=== PATIENT | female | born 1965 | race Caucasian/White ===

== ENCOUNTER 2020-03-26 17:40 | Emergency (ER) | payer OTHER, SELFPAY ==
[2020-03-26 20:45] VITALS: BP 145/75; PULSE 79; RESP 18; O2SAT 97; BMI 48.0
== END 2020-03-26 21:05 | disposition left against medical advice (07) ==
PROVIDERS: Emergency Provider Internal Medicine; PCP Internal Medicine
DX: R10.9 Unspecified abdominal pain (principal)
CPT/HCPCS: 99281; 99282

== ENCOUNTER 2020-04-16 14:24 | Outpatient (REF) | payer OTHER, SELFPAY ==
--- NOTE | 2020-04-16 14:28 | CT_ITS ---
EXAMINATION: CT ABDOMEN AND PELVIS WITH CONTRAST CLINICAL INFORMATION: Left lower quadrant pain. COMPARISON: None TECHNIQUE: Multidetector volumetric images were obtained from the superior aspect of the liver through the pubic symphysis following administration 85 mL of Omnipaque 350 intravenous contrast. Sagittal and coronal reformatted images were obtained on the technologist's workstation. Oral contrast: No This CT examination was performed using dose optimization techniques as appropriate, variously including the following: *Automated exposure control *Adjustment of mA and/or kV according to patient size (this includes techniques or standardized protocols for targeted exams where dose is matched to indication/reason for exam; i.e. extremities or head) *Use of iterative reconstruction technique DLP: 821 mGy-cm FINDINGS: LUNG BASES: Heart size is normal. There is minimal plate-like atelectatic changes right lower lobe. LIVER, GALLBLADDER, AND BILIARY TREE: The liver is normal in size, shape, and hypoattenuation. No focal hepatic lesion or biliary ductal dilatation is present. The gallbladder is distended with radiopaque mobile stones. Largest radiopaque calculi measuring 6 mm. Few radiopaque calculi seen in the neck of the gallbladder. PANCREAS: Unremarkable. SPLEEN: Unremarkable. ADRENAL GLANDS: Unremarkable. KIDNEYS AND URETERS: The kidneys are normal in size, shape, and attenuation. No hydronephrosis, hydroureter, or calculi seen. No perinephric stranding. BLADDER: Unremarkable. GASTROINTESTINAL TRACT: There is scattered moderate stool, diverticuli and gas seen throughout the colon without significant distention or diverticulitis. The nonspecific mild mural thickening involving the proximal jejunal loops question peristaltic changes versus a small bowel enteritis. Rest of the small bowel loops are normal. The appendix is normal caliber. The stomach is nondistended and appears unremarkable. No free air or free fluid seen. ABDOMINAL WALL: There is small umbilical hernia containing fat. LYMPH NODES: Normal. VASCULAR: Unremarkable. PELVIC VISCERA: The uterus is anteverted with a punctate calcification in the cervix. No free fluid or hernia seen. No abnormal lymph nodes. OSSEOUS STRUCTURES: There are degenerative disc changes L4-L5 and L5-S1 disc levels with mild spondylosis. Moderate lower dorsal spine spondylosis is noted. CT/CT abdomen pelvis w con IMPRESSION: 1. Mild constipation with scattered colonic diverticuli. No evidence of diverticulitis or obstruction. 2. Nonspecific mild mural thickening involving the small bowel loops in left mid abdomen. Question enteritis versus peristaltic changes. 3. Distended gallbladder with radiopaque stones. Hepatic steatosis.
[2020-04-16] MEDS: iohexoL 350 MG/ML 100 ML INFUS..BTL IV (16:38)
== END 2020-04-16 14:25 | disposition home or self-care (01) ==
LOC: HO.CT 14:24
PROVIDERS: Visit Provider Internal Medicine
DX: R10.32 Left lower quadrant pain (principal)
CPT/HCPCS: 74177; Q9967

== ENCOUNTER 2020-10-28 13:46 | Outpatient (REF) | payer OTHER, SELFPAY ==
[2020-11-01 03:37] LABS: HPV mRNA E6/E7 rflx Not Detected (Not Detected)
== END 2020-10-28 13:47 | disposition home or self-care (01) ==
LOC: HO.LAB 13:46
PROVIDERS: PCP Internal Medicine; Visit Provider Advanced Practice Midwife
DX: N93.9 Abnormal uterine and vaginal bleeding, unspecified (principal); N95.0 Postmenopausal bleeding
CPT/HCPCS: 58100; 87624; 88142; 88305

== ENCOUNTER 2020-11-06 15:24 | Outpatient (REF) | payer OTHER, SELFPAY ==
--- NOTE | ~2020-11-06 | US_ITS ---
EXAMINATION: US PELVIS CLINICAL INFORMATION: Postmenopausal bleeding. COMPARISON: CT abdomen and pelvis 04/16/2020 TECHNIQUE: Ultrasound of the pelvis is performed using both transabdominal and transvaginal transducers along with Doppler. Transvaginal imaging is performed due to inadequate visualization transabdominally. FINDINGS: The uterus is anteverted measuring 10.0 cm in length, 4.2 cm in AP and 4.8 cm in transverse dimension. There is a solitary hypoechoic lesion in the anterior uterus measuring 0.9 x 0.7 x 0.8 cm. No additional lesions seen. The myometrium is heterogeneous with endometrial thickness of 0.57 cm. There are numerous anechoic complex cysts seen in the cervix. The right ovary measures 5.6 x 1.7 x 2.5 cm and volume 12.8 cm. It is visualized transabdominally. The left ovary is not seen well. There is no free fluid in the cul-de-sac. US/US pelvic and transvaginal IMPRESSION: Small uterine fibroid in the anterior uterus. There are numerous complex anechoic cysts in cervix. The myometrium is heterogeneous. The right ovary is unremarkable. The left ovary is not visualized. Multiple complex nabothian cysts in the cervix.
== END 2020-11-06 15:25 | disposition home or self-care (01) ==
LOC: HO.HMGCX 15:24
PROVIDERS: PCP Internal Medicine; Visit Provider Advanced Practice Midwife
DX: N95.0 Postmenopausal bleeding (principal)
CPT/HCPCS: 76830; 76856

== ENCOUNTER → 2020-11-27 10:21 | Outpatient (BNVA) | payer OTHER, SELFPAY | PROVIDERS: PCP Internal Medicine; Visit Provider Advanced Practice Midwife ==

== ENCOUNTER 2020-12-11 16:55 | Outpatient (REF) | payer OTHER, SELFPAY ==
--- NOTE | ~2020-12-11 | XR_ITS ---
EXAMINATION: XR CHEST CLINICAL INFORMATION: Cough COMPARISON: Previous chest x-ray most recent August 2013 TECHNIQUE: 2 views of the chest were obtained. FINDINGS: The cardiac and mediastinal contours are stable. The lungs are clear. There is no pleural effusion or pneumothorax. There are degenerative changes of the spine. XR/XR chest 2V IMPRESSION: No evidence for acute disease in the chest.
== END 2020-12-11 16:56 | disposition home or self-care (01) ==
LOC: HO.XRAY 16:55
PROVIDERS: PCP Internal Medicine; Visit Provider Internal Medicine
DX: R05 Cough (principal)
CPT/HCPCS: 71046

== ENCOUNTER 2021-11-24 08:19 | Outpatient (REF) | payer OTHER, SELFPAY ==
[2021-11-24 08:29] LABS: MANUAL DIFF FLAG NO
[2021-11-24 08:55] LABS: Basophils Absolute Auto 0.1 X10*3/uL (0.0-0.2); Basophils Percent Auto 0.6 % (0-2); Eosinophils Absolute Auto 0.5 X10*3/uL (0.0-0.4); Eosinophils Percent Auto 5.1 % (0-4); Hematocrit 42.9 % (37.0-47.0); Hemoglobin 14.4 g/dl (12.0-16.0); Imm Gran Abs Auto 0.04 X10*3/uL (0.00-0.03); Imm Gran Pct Auto 0.4 % (0.0-0.4); Lymphocytes Absolute Auto 2.9 X10*3/uL (1.2-4.9); Mean Corpuscular HGB Conc 33.6 g/dl (31.0-35.0); Mean Corpuscular Hemoglobin 31.6 pg (27.0-33.0); Mean Corpuscular Volume 94.1 fL (80.0-98.0); Mean Platelet Volume 11.9 fL (9.4-12.3); Monocytes Absolute Auto 0.6 X10*3/uL (0.1-1.2); Monocytes Percent Auto 6.8 % (2-11); Neutrophils Absolute Auto 4.8 x10*3/uL (2.0-8.3); Neutrophils Percent Auto 54.1 % (45-73); Platelet Count 206 X10*3/uL (160-400); Red Blood Count 4.56 X10*6/uL (4.20-5.50); Red Cell Distribution Width 13.8 % (11.0-16.0); White Blood Count 8.9 X10*3/uL (4.8-10.8)
[2021-11-24 09:00] LABS: Estimated Average Glucose 117 mg/dL; Hemoglobin A1C 148.6176 umol/L; Hemoglobin A1c % 5.7 %
[2021-11-24 09:22] LABS: Alanine Aminotransferase 29 U/L (0-31); Albumin Level 4.2 g/dL (3.5-5.0); Alkaline Phosphatase 73 U/L (39-117); Anion Gap 15 (12-20); Aspartate Amino Transferase 22 U/L (5-31); Bilirubin Total 0.3 mg/dL (0.0-1.0); Blood Urea Nitrogen 11 mg/dL (9-16); Carbon Dioxide 25 mmol/L (22-29); Chloride 108 mmol/L (96-108); Cholesterol 192 mg/dL; Estimated Glomerular Filt Rate > 60; Glucose Random 128 mg/dL (60-115); HDL Cholesterol 46 mg/dL; LDL Cholesterol Calculated 117 mg/dl; Potassium 4.2 mmol/L (3.3-5.1); Sodium 144 mmol/L (135-145); Triglycerides 145 mg/dL
[2021-11-24 09:45] LABS: Thyroid Stimulating Hormone 2.25 uIU/mL (0.32-4.0)
== END 2021-11-24 08:20 | disposition home or self-care (01) ==
LOC: HO.LAB 08:19
PROVIDERS: PCP Internal Medicine; Visit Provider Internal Medicine
DX: Z00.01 Encounter for general adult medical examination with abnormal findings (principal); E03.9 Hypothyroidism, unspecified; F10.19 Alcohol abuse with unspecified alcohol-induced disorder; F32.9 Major depressive disorder, single episode, unspecified; I10 Essential (primary) hypertension; K62.5 Hemorrhage of anus and rectum; R73.01 Impaired fasting glucose; Z72.0 Tobacco use
CPT/HCPCS: 36415; 80053; 80061; 83036; 84443; 85025

== ENCOUNTER 2021-11-25 14:41 | Outpatient (REF) | payer OTHER, SELFPAY ==
--- NOTE | ~2021-11-25 | XR_ITS ---
EXAMINATION: XR HAND, LEFT CLINICAL INFORMATION: Fall, rule out fracture COMPARISON: None TECHNIQUE: PA, lateral, and oblique views of the left hand. FINDINGS: No visible acute fracture or dislocation. Alignment is anatomic. Joint spaces are maintained. No erosions. Small calcification in the dorsal soft tissues at the level of the distal radius, appears chronic, could represent dystrophic changes. XR/XR hand LT min 3V IMPRESSION: No radiographic evidence of acute fracture.
--- NOTE | ~2021-11-25 | XR_ITS ---
EXAMINATION: XR HIP, RIGHT CLINICAL INFORMATION: Pain COMPARISON: None TECHNIQUE: 3 views of the right hip. FINDINGS: Normal evidence of fracture or dislocation. Alignment is anatomic. Hip joint space is maintained. No abnormal soft tissue calcification. XR/XR hip RT min 2V IMPRESSION: No evidence of acute osseous abnormality.
== END 2021-11-25 14:42 | disposition home or self-care (01) ==
LOC: HO.XRAY 14:41
PROVIDERS: PCP Internal Medicine; Visit Provider Internal Medicine
DX: M25.551 Pain in right hip (principal); M79.642 Pain in left hand
CPT/HCPCS: 73130; 73502

== ENCOUNTER 2022-08-18 12:58 | Outpatient (REF) | payer OTHER, SELFPAY ==
[2022-08-18 13:15] LABS: MANUAL DIFF FLAG NO
[2022-08-18 13:31] LABS: Basophils Absolute Auto 0.1 X10*3/uL (0.0-0.2); Basophils Percent Auto 0.6 % (0-2); Eosinophils Absolute Auto 0.4 X10*3/uL (0.0-0.4); Eosinophils Percent Auto 4.5 % (0-4); Hematocrit 41.4 % (37.0-47.0); Hemoglobin 13.9 g/dl (12.0-16.0); Imm Gran Abs Auto 0.06 X10*3/uL (0.00-0.03); Imm Gran Pct Auto 0.7 % (0.0-0.4); Lymphocytes Absolute Auto 2.3 X10*3/uL (1.2-4.9); Lymphocytes Percent Auto 28.2 % (20-40); Mean Corpuscular HGB Conc 33.6 g/dl (31.0-35.0); Mean Corpuscular Hemoglobin 31.7 pg (27.0-33.0); Mean Corpuscular Volume 94.5 fL (80.0-98.0); Mean Platelet Volume 11.7 fL (9.4-12.3); Monocytes Absolute Auto 0.5 X10*3/uL (0.1-1.2); Monocytes Percent Auto 5.6 % (2-11); Neutrophils Absolute Auto 4.8 x10*3/uL (2.0-8.3); Neutrophils Percent Auto 60.4 % (45-73); Platelet Count 184 X10*3/uL (160-400); Red Blood Count 4.38 X10*6/uL (4.20-5.50); Red Cell Distribution Width 13.8 % (11.0-16.0)
[2022-08-18 14:17] LABS: Alanine Aminotransferase 27 U/L (0-31); Albumin Level 3.9 g/dL (3.5-5.0); Alkaline Phosphatase 72 U/L (39-117); Anion Gap 10 (12-20); Aspartate Amino Transferase 25 U/L (5-31); Bilirubin Total 0.5 mg/dL (0.0-1.0); Blood Urea Nitrogen 11 mg/dL (9-16); Calcium 9.3 mg/dL (8.4-10.2); Carbon Dioxide 28 mmol/L (22-29); Chloride 108 mmol/L (96-108); Cholesterol 171 mg/dL; Estimated Glomerular Filt Rate > 60; Glucose Random 112 mg/dL (60-115); HDL Cholesterol 44 mg/dL; LDL Cholesterol Calculated 105 mg/dl; Potassium 4.1 mmol/L (3.3-5.1); Sodium 142 mmol/L (135-145); Total Protein 6.6 g/dL (6.5-8.0); Triglycerides 112 mg/dL
[2022-08-18 14:33] LABS: Thyroid Stimulating Hormone 2.05 uIU/mL (0.32-4.0)
== END 2022-08-18 12:59 | disposition home or self-care (01) ==
LOC: HO.LAB 12:58
PROVIDERS: PCP Internal Medicine; Visit Provider Internal Medicine
DX: Z00.01 Encounter for general adult medical examination with abnormal findings (principal); E03.9 Hypothyroidism, unspecified; F10.24 Alcohol dependence with alcohol-induced mood disorder; F32.9 Major depressive disorder, single episode, unspecified; I10 Essential (primary) hypertension; R70.1 Abnormal plasma viscosity; Z63.4 Disappearance and death of family member
CPT/HCPCS: 36415; 80053; 80061; 84443; 85025

== ENCOUNTER 2022-08-24 11:39 | Outpatient (REF) | payer OTHER, SELFPAY ==
--- NOTE | ~2022-08-24 | MM_ITS ---
EXAMINATION: MM SCREENING DIGITAL BREAST TOMOSYNTHESIS, BILATERAL CLINICAL INFORMATION: Screening. Asymptomatic. The lifetime risk of breast cancer based on the Tyrer-Cuzick Model is 7%. COMPARISON: Mammography: 01/30/2017, 04/03/2014 TECHNIQUE: Digital breast tomosynthesis is performed in both the craniocaudal and mediolateral oblique views along with computer-aided detection (CAD). Synthesized 2D images are generated from the tomosynthesis. Additional right CC and bilateral MLO views are provided. FINDINGS: There are scattered areas of fibroglandular density (ACR BI-RADS breast composition Category b). There are no significant masses, abnormal calcifications, or other abnormalities. Parenchymal pattern is similar to prior studies. There is no developing density or architectural abnormality. There are scattered minor asymmetries similar to prior studies. Small stable circumscribed nodule possibly intramammary node again seen posterior upper outer right breast. The axilla and skin contours are unremarkable. No significant changes. MM/MM tomosynthesis screening BI IMPRESSION: No mammographic evidence of malignancy. ASSESSMENT: BI-RADS 2: Benign RECOMMENDATION: Routine annual mammography screening. This patient's information was entered into a reminder system with a target due date for their next mammogram.
== END 2022-08-24 11:40 | disposition home or self-care (01) ==
LOC: HO.MAMMO 11:39
PROVIDERS: PCP Internal Medicine; Visit Provider Internal Medicine
DX: Z12.31 Encounter for screening mammogram for malignant neoplasm of breast (principal)
CPT/HCPCS: 77063; 77067

== ENCOUNTER 2022-11-04 12:21 | Emergency (ER) | payer MEDICAID, SELFPAY ==
--- NOTE | ~2022-11-04 | XR_ITS ---
EXAMINATION: XR CHEST CLINICAL INFORMATION: Chest pain. COMPARISON: 12/11/2020 chest radiographs. TECHNIQUE: 2 views of the chest were obtained. FINDINGS: No significant abnormality is noted involving the heart, lungs, mediastinum, bony thorax or soft tissues. XR/XR chest 2V IMPRESSION: No acute cardiopulmonary process.
--- NOTE | 2022-11-04 12:33 | ED_ITS ---
HPI - General Adult General Chief complaint: Upper Respiratory Symptoms Stated complaint: Bronchitis? Sent by PCP Time Seen by Provider: 11/04/22 13:41 Source: patient Mode of arrival: ambulatory Limitations: no limitations History of Present Illness HPI narrative: 57 year old female w/ a pmhx of asthma, CHEYANNE, and obesity presents to the ED today w/ concern of bronchitis. She states that she tested positive for COVID ~2wks ago for which she finished a course of paxlovid for, and tells me she usually has a bad case of bronchitis every summer. She endorse sinus pressure, sore throat, productive cough w/ green sputum, shortness of breath, and overall feeling of lousiness. She denies any fever, chills, headache, dizziness, nausea, vomiting, abdominal pain, chest pain, diarrhea, constipation, and urinary compla ints. MD complaint: productive cough body aches Onset (ago): week(s) (2) Location: face and chest Radiation: non-radiation Severity: moderate Pain Consistency: constant Relieving factors: none Exacerbating factors: none Associated symptoms: denies other symptoms Treatments prior to arrival: none Related Data Home Medications Medication Instructions Recorded Confirmed levothyroxine 112 mcg capsule 112 mcg PO DAILY 10/28/20 sertraline 100 mg tablet (Zoloft) 100 mg PO DAILY 10/28/20 Previous Rx's Medication Instructions Recorded azithromycin 250 mg tablet See Rx Instructions PO .COMPLEX #6 11/04/22 (Zithromax Z-Bebo) tabs benzonatate 200 mg capsule 200 mg PO BID PRN cough #30 caps 11/04/22 Allergies Allergy/AdvReac Type Severity Reaction Status Date / Time No Known Allergies Allergy Verified 11/04/22 12:33 Review of Systems Review of Systems: Yes all other systems are reviewed and are negative [facility] Past Medical History Medical History No known health problems Social History Social History Advance Directives: No Advance Directives Information Provided: No Physical Exam ED Vital Signs: Vital Signs - 24 hr 11/04/22 12:34 Temperature 97 F Pulse Rate 71 Respiratory Rate 19 Blood Pressure 145/75 H Pulse Oximetry 98 Oxygen Delivery Method Room Air BMI result Body Mass Index 49.6 Appearance: Alert. Oriented X3. No acute distress. Head: normocephalic, atraumatic. Eyes: Pupils equal, round and reactive to light. ENT: TM's normal bilaterally. Normal external ear. Pharynx normal. No tonsilar swelling or exudate. Neck: Left sided submandibular lymphadenopathy CVS: Normal heart rate and rhythm. Pulses normal. Respiratory: No respiratory distress. Breath sounds normal. No wheeze. Skin: Skin warm and dry. Normal skin color. Normal skin turgor. No rashes. Extremities: No lower extremity edema. No joint swelling. Neuro/psych: Oriented X 3. No motor deficit. No sensory deficit. CN II-XII int act. Normal speech and cognition. Course Course Course Narrative: RME- 57 shows a presents for evaluation of cough, congestion. Complains of subjective fevers but did not take a temperature. She reports she tested positive for COVID-19 2 weeks ago and finished a course of paxlovid over 1 week ago. Plan for labs, chest x-ray Medical Decision Making Medical Decision Making [facility] Narrative: 57 year old female w/ a pmhx of asthma, CHEYANNE, and obesity presents to the ED today w/ concern of bronchitis. On exam her VSS, NAD, PE as above, no accessory muscle use, or signs of respiratory distress. Likely bronchitis vs viral URI vs rebound COVID. Lower suspicion for pneumonia, PE, pericardial effusion, pneumothorax, or ACS. Plan: X-ray, labs, COVID/flu, antibiotics, cough medicine, supportive care Workup is unremarkable. VSS. will treat for acute bronchitis w/ z-bebo and antitussive. stable for d/c home. Differential Diagnosis Differential Diagnoses: The differential diagnosis associated with the presentation includes bronchitis, pneumonia, less likely PE, pericardial effusion, pneumothorax, or ACS. Admission/Observation Consideration of admission/observation: Escalation of care including admission/observation considered 57 yo female with sob, cough s/p covid, considered observation/admission Lab Data [facility] Lab Attestation statement: I reviewed the patient's lab results. no leukocytosis 11/04/22 12:56 11/04/22 12:56 Labs: Lab Results 11/04/22 11/04/22 11/04/22 Range/Units 12:56 12:56 12:56 WBC 10.1 (4.8-10.8) X10*3/uL RBC 4.65 (4.20-5.50) X10*6/uL Hgb 14.6 (12.0-16.0) g/dl Hct 43.8 (37.0-47.0) % MCV 94.2 (80.0-98.0) fL MCH 31.4 (27.0-33.0) pg MCHC 33.3 (31.0-35.0) g/dl RDW 13.6 (11.0-16.0) % Plt Count 220 (160-400) X10*3/uL MPV 11.3 (9.4-12.3) fL Immature Gran % (Auto) 1.2 H (0.0-0.4) % Neut % (Auto) 63.9 (45-73) % Lymph % (Auto) 22.6 (20-40) % [place] % (Auto) 7.5 (2-11) % Eos % (Auto) 4.3 H (0-4) % Baso % (Auto) 0.5 (0-2) % Lymph # (Auto) 2.3 (1.2-4.9) X10*3/uL [place] # (Auto) 0.8 (0.1-1.2) X10*3/uL Eos # (Auto) 0.4 (0.0-0.4) X10*3/uL Baso # (Auto) 0.1 (0.0-0.2) X10*3/uL Abs Immat Gran (auto) 0.12 H (0.00-0.03) X10*3/uL Absolute Neuts (auto) 6.4 (2.0-8.3) x10*3/uL Absolute Nucleated RBC 0.000 (0.0-0.012) X10*3/uL Nucleated RBC % (auto) 0.0 (0.0-0.2) /100WBC PT 11.0 L (11.1-13.3) SEC INR 0.9 (0.9-1.1) APTT 34.7 (26.0-36.4) SEC Sodium 139 (135-145) mmol/L Potassium 4.1 (3.3-5.1) mmol/L Chloride 108 (96-108) mmol/L Carbon Dioxide 22 (22-29) mmol/L Anion Gap 13 (12-20) BUN 13 (9-16) mg/dL Creatinine 0.69 (0.5-1.4) mg/dL Estim Creat Clear Calc 118.2 Estimated GFR > 60 Random Glucose 108 (60-115) mg/dL Calcium 9.3 (8.4-10.2) mg/dL Total Bilirubin 0.3 (0.0-1.0) mg/dL AST 26 (5-31) U/L ALT 30 (0-31) U/L Alkaline Phosphatase 82 (39-117) U/L Total Protein 7.5 (6.5-8.0) g/dL Albumin 4.0 (3.5-5.0) g/dL Influenza Type A (PCR) (Negative) Influenza Type B (PCR) (Negative) RSV RNA Qual (PCR) (Negative) SARS-CoV-2 RNA (RT-PCR) (Negative) 11/04/22 Range/Units 12:56 WBC (4.8-10.8) X10*3/uL RBC (4.20-5.50) X10*6/uL Hgb (12.0-16.0) g/dl Hct (37.0-47.0) % MCV (80.0-98.0) fL MCH (27.0-33.0) pg MCHC (31.0-35.0) g/dl RDW (11.0-16.0) % Plt Count (160-400) X10*3/uL MPV (9.4-12.3) fL Immature Gran % (Auto) (0.0-0.4) % Neut % (Auto) (45-73) % Lymph % (Auto) (20-40) % [place] % (Auto) (2-11) % Eos % (Auto) (0-4) % Baso % (Auto) (0-2) % Lymph # (Auto) (1.2-4.9) X10*3/uL [place] # (Auto) (0.1-1.2) X10*3/uL Eos # (Auto) (0.0-0.4) X10*3/uL Baso # (Auto) (0.0-0.2) X10*3/uL Abs Immat Gran (auto) (0.00-0.03) X10*3/uL Absolute Neuts (auto) (2.0-8.3) x10*3/uL Absolute Nucleated RBC (0.0-0.012) X10*3/uL Nucleated RBC % (auto) (0.0-0.2) /100WBC PT (11.1-13.3) SEC INR (0.9-1.1) APTT (26.0-36.4) SEC Sodium (135-145) mmol/L Potassium (3.3-5.1) mmol/L Chloride (96-108) mmol/L Carbon Dioxide (22-29) mmol/L Anion Gap (12-20) BUN (9-16) mg/dL Creatinine (0.5-1.4) mg/dL Estim Creat Clear Calc Estimated GFR Random Glucose (60-115) mg/dL Calcium (8.4-10.2) mg/dL Total Bilirubin (0.0-1.0) mg/dL AST (5-31) U/L ALT (0-31) U/L Alkaline Phosphatase (39-117) U/L Total Protein (6.5-8.0) g/dL Albumin (3.5-5.0) g/dL Influenza Type A (PCR) NEGATIVE (Negative) Influenza Type B (PCR) NEGATIVE (Negative) RSV RNA Qual (PCR) NEGATIVE (Negative) SARS-CoV-2 RNA (RT-PCR) NEGATIVE (Negative) Independent Interpretation I performed an independent interpretation of an: Plain X-Ray Interpretation: cxr is clear, no PNA Radiology Impression Discussion of test interpretation with radiology: I have reviewed the radiologist's reading. Radiologist Impression: EXAMINATION: XR CHEST CLINICAL INFORMATION: Chest pain. COMPARISON: 12/11/2020 chest radiographs. TECHNIQUE: 2 views of the chest were obtained. FINDINGS: No significant abnormality is noted involving the heart, lungs, mediastinum, bony thorax or soft tissues. XR/XR chest 2V IMPRESSION: No acute cardiopulmonary process. External Record Review External record reviewed: Outpatient record, Prior outpatient labs and Prior outpatient radiology Tests considered The following testing was considered but not selected: CTA considered but not performed - no tachycardia, no hypoxia Prescription Management I considered prescription management with: Antibiotic and Other (antitussive) Chronic Conditions Patient?s care impacted by: Other (asthma) Critical Care Time Critical Care Time Critical Care Time: No Discharge Plan Discharge Clinical Impression: Bronchitis Patient Disposition: Home, Self-Care Instructions: Acute Bronchitis (ED) Additional Instructions: Your chest x-ray today was unremarkable. Your lab workup was unremarkable. Take the prescribed antibiotics as directed, complete the entire course. Take the prescribed cough medicine as needed. You can also try [id number] cough medications and [id number] cold and flu medications as needed for your symptoms. Rest and stay hydrated. Continue your asthma inhaler. Follow-up with your doctor. If you develop new or worsening symptoms call 911 or come back to the ER for further evaluation. Prescriptions: New azithromycin [Zithromax Z-Bebo] 250 mg tablet See Rx Instructions .ROUTE .COMPLEX Qty: 6 0RF Rx Instructions: take 500 mg today (day 1), then 250 mg for 4 days (days 2-5) benzonatate 200 mg capsule 200 mg PO BID PRN (Reason: cough) Qty: 30 0RF No Action sertraline [Zoloft] 100 mg tablet 100 mg PO DAILY levothyroxine 112 mcg capsule 112 mcg PO DAILY Referrals: Lorena Delgado MD [Primary Care Provider] - Stand Alone Forms: Work/School Release Interventions: ED Discharge Assessment Last Done: 11/04/22 14:22 Discharge Date/Time: 11/04/22 14:23
[2022-11-04 12:34] VITALS: BP 145/75; PULSE 71; RESP 19; TEMP 36.1; O2SAT 98; BMI 49.6
[2022-11-04 13:02] LABS: MANUAL DIFF FLAG NO
[2022-11-04 13:10] LABS: Basophils Absolute Auto 0.1 X10*3/uL (0.0-0.2); Basophils Percent Auto 0.5 % (0-2); Eosinophils Absolute Auto 0.4 X10*3/uL (0.0-0.4); Eosinophils Percent Auto 4.3 % (0-4); Hematocrit 43.8 % (37.0-47.0); Hemoglobin 14.6 g/dl (12.0-16.0); Imm Gran Abs Auto 0.12 X10*3/uL (0.00-0.03); Imm Gran Pct Auto 1.2 % (0.0-0.4); Lymphocytes Absolute Auto 2.3 X10*3/uL (1.2-4.9); Lymphocytes Percent Auto 22.6 % (20-40); Mean Corpuscular HGB Conc 33.3 g/dl (31.0-35.0); Mean Corpuscular Hemoglobin 31.4 pg (27.0-33.0); Mean Corpuscular Volume 94.2 fL (80.0-98.0); Mean Platelet Volume 11.3 fL (9.4-12.3); Monocytes Absolute Auto 0.8 X10*3/uL (0.1-1.2); Monocytes Percent Auto 7.5 % (2-11); Neutrophils Absolute Auto 6.4 x10*3/uL (2.0-8.3); Neutrophils Percent Auto 63.9 % (45-73); Platelet Count 220 X10*3/uL (160-400); Red Blood Count 4.65 X10*6/uL (4.20-5.50); Red Cell Distribution Width 13.6 % (11.0-16.0); White Blood Count 10.1 X10*3/uL (4.8-10.8)
[2022-11-04 13:16] LABS: INTERNATIONAL NORM RATIO 0.9 (0.9-1.1)
[2022-11-04 13:18] LABS: Alanine Aminotransferase 30 U/L (0-31); Alkaline Phosphatase 82 U/L (39-117); Anion Gap 13 (12-20); Aspartate Amino Transferase 26 U/L (5-31); Bilirubin Total 0.3 mg/dL (0.0-1.0); Blood Urea Nitrogen 13 mg/dL (9-16); Calcium 9.3 mg/dL (8.4-10.2); Carbon Dioxide 22 mmol/L (22-29); Chloride 108 mmol/L (96-108); Creatinine Clr Calc Pharmacy 118.2; Estimated Glomerular Filt Rate > 60; Glucose Random 108 mg/dL (60-115); Potassium 4.1 mmol/L (3.3-5.1); Sodium 139 mmol/L (135-145); Total Protein 7.5 g/dL (6.5-8.0)
[2022-11-04 13:19] LABS: Partial Thromboplastin Time 34.7 SEC (26.0-36.4)
[2022-11-04 13:40] LABS: Influenza A PCR NEGATIVE (Negative); Influenza B PCR NEGATIVE (Negative); Resp Syncy Virus RNA Qual PCR NEGATIVE (Negative); SARS COV2 PCR INHOUSE NEGATIVE (Negative)
== END 2022-11-04 14:23 | disposition home or self-care (01) ==
PROVIDERS: Physician Assistant; Emergency Provider Emergency Medicine; PCP Internal Medicine
DX: J40 Bronchitis, not specified as acute or chronic (principal); R07.89 Other chest pain; Z20.822 Contact with and (suspected) exposure to COVID-19; Z20.828 Contact with and (suspected) exposure to other viral communicable diseases; Z79.899 Other long term (current) drug therapy
CPT/HCPCS: 0241U; 71046; 80053; 85025; 85610; 85730; 99282; 99283

== ENCOUNTER 2023-02-26 12:01 | Emergency (ER) | payer OTHER, SELFPAY ==
--- NOTE | ~2023-02-26 | XR_ITS ---
EXAMINATION: XR ANKLE, RIGHT. XR FOOT, RIGHT. CLINICAL INFORMATION: Foot injury COMPARISON: None. TECHNIQUE: 3 views of the right ankle. 3 views of the right foot. FINDINGS: There is a nondisplaced transverse fracture of the proximal 5th metatarsal. Cannot exclude hairline extension into the medial aspect of the TMT joint. No additional fractures. The ankle mortise is preserved. Large heel spur. XR/XR ankle RT min 3V IMPRESSION: Nondisplaced transverse fracture of the proximal 5th metatarsal. Cannot exclude hairline extension into the medial aspect of the TMT joint.
--- NOTE | ~2023-02-26 | XR_ITS ---
EXAMINATION: XR ANKLE, RIGHT. XR FOOT, RIGHT. CLINICAL INFORMATION: Foot injury COMPARISON: None. TECHNIQUE: 3 views of the right ankle. 3 views of the right foot. FINDINGS: There is a nondisplaced transverse fracture of the proximal 5th metatarsal. Cannot exclude hairline extension into the medial aspect of the TMT joint. No additional fractures. The ankle mortise is preserved. Large heel spur. XR/XR foot RT min 3V IMPRESSION: Nondisplaced transverse fracture of the proximal 5th metatarsal. Cannot exclude hairline extension into the medial aspect of the TMT joint.
[2023-02-26 12:16] VITALS: BP 144/74; PULSE 78; RESP 20; TEMP 36.4; O2SAT 96; BMI 44.3
--- NOTE | 2023-02-26 12:16 | ED_ITS ---
HPI - General Adult General Chief complaint: Extremity Problem Stated complaint: ? R Foot Fracture S/P Fall 02/24/23 Time Seen by Provider: 02/26/23 12:43 Source: patient Mode of arrival: ambulatory Limitations: no limitations History of Present Illness HPI narrative: Patient is a 57 year old assigned female at with no reported medical history presenting to the emergency department today with right foot pain. Patient states that she was walking to stop and shop when she tripped and fell and ever since her right foot has been bothering her. Patient denies hitting hear head or any loss of conciseness with the incident. Patient denies any dizziness, lightheadedness, abdominal pain, nausea, vomiting, fever, chills, blurry vision, double vision, loss of vision, chest pain, difficulty breathing, shortness of breath, back pain, night sweats, pain with urination, increased urinary frequency, increased urinary urgency, blood in her urine or stool, syncope or a near syncopal episode, bowel incontinence, bladder incontinence, bowel retention, bladder retention, or any other complaints at this time. Onset (ago): day(s) (2) Location: right and lower extremity Radiation: non-radiation Severity: mild Severity scale (1-10): 3 Quality: aching and dull Pain Consistency: constant Relieving factors: none Exacerbating factors: movement Associated symptoms: denies other symptoms Treatments prior to arrival: none Related Data Home Medications Medication Instructions Recorded Confirmed levothyroxine 112 mcg capsule 112 mcg PO DAILY 10/28/20 sertraline 100 mg tablet (Zoloft) 100 mg PO DAILY 10/28/20 Previous Rx's Medication Instructions Recorded azithromycin 250 mg tablet See Rx Instructions PO .COMPLEX #6 11/04/22 (Zithromax Z-Bebo) tabs benzonatate 200 mg capsule 200 mg PO BID PRN cough #30 caps 11/04/22 Allergies Allergy/AdvReac Type Severity Reaction Status Date / Time No Known Allergies Allergy Verified 11/04/22 12:33 Review of Systems Constitutional: Constitutional: Reports no additional constitutional complaints, Denies chills, Denies fever(s) and Denies night sweats Eyes: Eyes: Reports no additional eye complaints, Denies blurry vision, Denies change in vision, Denies diplopia, Denies eye discharge, Denies loss of vision and Denies eye pain ENT: Denies dizziness Cardiovascular: Cardiovascular: Reports no additional cardiovascular complaint s, Denies chest pain, Denies lightheadedness, Denies Loss of Consciousness and Denies dyspnea Respiratory: Respiratory: Reports no additional respiratory complaints and Denies dyspnea Gastrointestinal: Gastrointestinal: Reports no additional gastrointestinal complaints, Denies abdominal pain, Denies melena, Denies hematochezia, Denies change in bowel habits and Denies change in stool character Genitourinary: Genitourinary: Denies hematuria, Denies urinary frequency, Denies dysuria, Denies urinary incontinence, Denies urinary hesitancy and Denies urinary urgency Musculoskeletal: Musculoskeletal: Reports no additional musculoskeletal complaints, Denies numbness and Denies tingling Comments: right foot pain Neurologic: Denies dizziness, Denies loss of vision, Denies numbness and Denies tingling Psychiatric: Psychiatric: Reports no additional psychiatric complaints Endocrine: Endocrine: Reports no additional endocrine complaints Hematologic/Lymphatic: Hematologic/Lymphatic: Reports no additional hematologic/lymphatic complaints Allergic/Immunologic: Allergic/Immunologic: Reports no additional allergic/immunologic complaints PMFSH Past Medical History Attestation statement: The following information was validated with the patient. Source: old records reviewed and nursing notes reviewed Medical History No known health problems Social History Social History Advance Directives: No Advance Directives Information Provided: No Physical Exam ED Vital Signs: Vital Signs - 24 hr 02/26/23 12:16 Temperature 97.6 F Pulse Rate 78 Respiratory Rate 20 Blood Pressure 144/74 H Pulse Oximetry 96 Oxygen Delivery Method Room Air BMI result Body Mass Index 44.3 Const General: cooperative, no acute distress, alert and awake Nutritional Appearance: well nourished Orientation/consciousness: patient oriented x3 Limitations: no limitations HENMT Head: Yes normal to inspection and Yes atraumatic Ears: hearing grossly normal bilaterally and external ears normal General nose exam: Normal external nose present, no nasal discharge noted and no epistaxis Face and sinus: Yes normal facial exam, No abrasion and No laceration Mouth: Normal oral and palatal mucosa present, no drooling and no muffled voice Eyes General: appearance normal, both eyes and all related structures Periorbital: periorbital findings normal Eyelids: Yes eyelids normal Conjunctivae: conjunctivae normal Pupils: Equal, round and reactive pupils present EOM: EOMs intact bilaterally Neck Neck: Yes normal visual inspection, Yes full ROM and Yes no lymphadenopathy Chest Chest palpation & inspection: normal inspection of the chest Resp Effort & Inspection: normal respiratory effort and able to speak in complete sentences GI Inspection: Yes normal to inspection Neuro General: patient oriented x3 and moves all extremities Cranial nerves: Yes Equal, round and reactive pupils present Cognition (Neuro): normal cognition Motor exam (neuro): 5/5 motor strength present throughout Sensory Exam: Normal double simultaneous stimulation for sensation Coordination: [id number] test normal Extrem Other: minimal swelling to the right foot General: Yes full ROM and Yes capillary refill normal Psych Appearance: grossly normal Mental Status: mental status grossly normal Affect: normal affect Attitude: cooperative Thought process: Normal thought process present Thought content: Normal thought content present Insight: Good insight present (Psych) Course Course Course Narrative: RME performed by Melissa Salamanca PA-C. Patient is a 57 year old assigned female at presenting to the emergency department with right foot pain after a fall. Patient was walking to stop and shop when she tripped and fell, injuring her right foot. Patient denies head strike or anti-coagulation use. Imaging ordered. Patient placed back in the waiting room pending room availability and results. Procedures Orthopedic Splinting/Casting Injury #1: Side: right Lower Extremity Injury Location: foot Lower Extremity Immobilizer: boot orthosis Medical Decision Making Medical Decision Making MDM Narrative: Patient is a 57 year old assigned female at with no reported medical history presenting to the emergency department today with right foot pain. Patient's physical exam was as noted in the physical exam portion of this note. Patient's right ankle x-ray showed no acute process. Patient's right foot x-ray showed a fracture of the 5th proximal metatarsal. I explained my physical exam findings as well as all test results to the patient. I answered all questions asked by the patient. Patient's right foot was placed in a walking boot and she was given crutches with crutch instructions. Patient's PMS was intact prior to and after boot placement. I stressed the importance of the patient taking her medication as prescribed. I stressed the importance of the patient following up with her primary care provider and an orthopedic provider. I stressed the importance of the patient returning to the emergency department immediately if her symptoms were to worsen or if she were to develop any dizziness, shortness of breath, difficulty breathing, chest pain, blurry vision, loss of vision, nausea, vomiting, abdominal pain, fever, chills, back pain, or any other complaints. Patient verbalized agreement and understanding with this treatment plan and discharge. Differential Diagnosis Differential Diagnoses: The differential diagnosis associated with the presentation includes Right foot fracture Right foot sprain Independent Interpretation I performed an independent interpretation of an: Plain X-Ray Interpretation: My interpretation is in agreement with the radiologist's impression of these imaging studies. EXAMINATION: XR ANKLE, RIGHT. XR FOOT, RIGHT. CLINICAL INFORMATION: Foot injury COMPARISON: None. TECHNIQUE: 3 views of the right ankle. 3 views of the right foot. FINDINGS: There is a nondisplaced transverse fracture of the proximal 5th metatarsal. Cannot exclude hairline extension into the medial aspect of the TMT joint. No additional fractures. The ankle mortise is preserved. Large heel spur. XR/XR foot RT min 3V IMPRESSION: Nondisplaced transverse fracture of the proximal 5th metatarsal. Cannot exclude hairline extension into the medial aspect of the TMT joint. Dictated By: Chepe Sandoval MD Signed By: Electronically signed by Chepe Sandoval MD 02/26/23 1761 Radiology Impression Discussion of test interpretation with radiology: I have reviewed the radiologist's reading. Discharge Plan Discharge Clinical Impression: Foot fracture Patient Disposition: Home, Self-Care Instructions: Crutch Instructions (ED), Foot Fracture in Adults (ED) Additional Instructions: Remain NON weight bearing on that right side. Follow up with your primary care provider and an orthopedic provider. Return to the emergency department immediately if your symptoms worsen or if you develop any dizziness, shortness of breath, difficulty breathing, chest pain, blurry vision, loss of vision, nausea, vomiting, abdominal pain, fever, chills, back pain, or any other co mplaints. Prescriptions: No Action azithromycin [Zithromax Z-Bebo] 250 mg tablet See Rx Instructions .ROUTE .COMPLEX Qty: 6 0RF Rx Instructions: take 500 mg today (day 1), then 250 mg for 4 days (days 2-5) benzonatate 200 mg capsule 200 mg PO BID PRN (Reason: cough) Qty: 30 0RF sertraline [Zoloft] 100 mg tablet 100 mg PO DAILY levothyroxine 112 mcg capsule 112 mcg PO DAILY Referrals: [facility] [Provider Group] (Call to establish and follow up with an orthopedic provider. ) Lorena Delgado MD [Primary Care Provider] - Stand Alone Forms: Work/School Release Interventions: ED Discharge Assessment Last Done: 02/26/23 14:00 Discharge Date/Time: 02/26/23 14:00 Print Language: Malay
== END 2023-02-26 14:00 | disposition home or self-care (01) ==
PROVIDERS: Emergency Provider Emergency Medicine Emergency Medical Services; PCP Internal Medicine
DX: S92.901A Unspecified fracture of right foot, initial encounter for closed fracture (principal); M25.571 Pain in right ankle and joints of right foot; W01.0XXA Fall on same level from slipping, tripping and stumbling without subsequent striking against object, initial encounter; Y93.9 Activity, unspecified; Y92.9 Unspecified place or not applicable; Y99.9 Unspecified external cause status
CPT/HCPCS: 29515; 73610; 73630; 99283

== ENCOUNTER 2023-03-05 08:21 | Outpatient (AMB) | payer OTHER, SELFPAY ==
--- NOTE | 2023-03-05 08:34 | A.OFFVIS_ITS ---
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 Patient reports having a fall injuring her right foot, presented to [facility] 2 days later due to her pain. Xrays were taken, placed in a boot, crutches were given and referred to orthopedics. Currently pain is constant located on the lateral aspect of foot. Complaints of slight swelling. Denies numbness or tingling. Finds relief with ibuprofen. 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 She states she is battling depression and alcoholism and she states lost her balance and fell. She was seen at ED about 2 days later for her pain where x-rays were performed, placed in a boot, crutches were given and she was referred to our office. She currently states she has constant pain in the lateral aspect of her foot. She also c/o mild swelling in her foot. She denies any numbness or tingling. She finds relief with ibuprofen. She also reports the job she is in requires her to ambulate a lot. 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 Review of Systems Const All systems reviewed & are unremarkable except as noted in HPI and below Physical Exam Vital Signs: BMI result Body Mass Index 44.3 Const General: cooperative, healthy appearing, comfortable, no acute distress, well developed and alert Orientation/consciousness: patient oriented x3 HEENT Head: Yes normal to inspection, Yes normocephalic and Yes atraumatic Eyes General: appearance normal, both eyes and all related structures Resp Effort & Inspection: normal respiratory effort and able to speak in complete sentences Cardio Rate: regular rate Peripheral pulses: Peripheral pulses 2+ throughout GI Palpation (GI): Soft to palpation Skin Lesions: no lesions Rashes: no rashes Neuro General: patient oriented x3 Extrem Other: Right foot: Skin intact. There is some bruising of the lateral edge of the left foot. There is tenderness at the base of the 5th metatarsal. Sensation intact. EHL intact. No pain along the mediolateral malleolus. Neurovascularly intact. Office Procedures Fracture Care Fracture Billing Code: Fracture Billing Code Assessment & Plan Assessment & Plan (1) Fracture of fifth metatarsal bone: Code(s): S92.353A - Displaced fracture of fifth metatarsal bone, unspecified foot, initial encounter for closed fracture Qualifiers: Encounter type: initial encounter Fracture type: closed Fracture alignment: nondisplaced Laterality: right Qualified Code(s): S92.354A - Nondisplaced fracture of fifth metatarsal bone, right foot, initial encounter for closed fracture Plan We discussed the extent of her injury today. I am treating this as a Moreno fracture which would require her to be non-weight bearing for at least 6-8 weeks in a cast. I did explain to her that non weight bearing in a cast means she is unable to drive. She mentioned to me that she does not have any family or other support to help with the transportation and she needs to drive, therefore she opted to stay in the boot. I did let her know that this would still require her to be non-weight bearing and she should avoid driving in the boot as it could be a driving hazard. She does understand this and will see me back in 8 weeks with x-rays. She will continue to work but would require the ability to work close to her working station for the next 8 weeks as she is non weight bearing. Orders: Orders XR foot RT min 3V Today S92.351A - Displaced fracture of fifth metatarsal bone, right foot, initial encounter for closed fracture Medications: New [Kneeling Scooter] As directed 1 ea 0RF Crush injury let ankle S92.353A - Displaced fracture of fifth metatarsal bone, unspecified foot, initial encounter for closed fracture Patient Instructions: Scribed for Celso Darby PA-C, by Steve Lloyd medical csr, on 03/05/2023 at 8:30 AM EST. Celso Kelley PA-C, have personally reviewed and agree with the information entered by the scribe. Coding Level of Care Code New Pt Level 3 (60110) Diagnoses Closed nondisplaced fracture of fifth metatarsal bone of right foot, initial encounter S92.354A Encounter type: initial encounter Fracture type: closed Fracture alignment: nondisplaced Laterality: right CPT Codes Fracture Care - Fracture Billing Code: Fracture Billing Code ([id number])
[2023-03-05 08:49] VITALS: BMI 44.3
== END 2023-03-05 09:16 | disposition home or self-care (01) ==
PROVIDERS: PCP Internal Medicine; Visit Provider Physician Assistant
DX: S92.354A Nondisplaced fracture of fifth metatarsal bone, right foot, initial encounter for closed fracture (principal); W19.XXXA Unspecified fall, initial encounter
CPT/HCPCS: 99203

== ENCOUNTER 2023-03-05 12:05 | Outpatient (REF) | payer OTHER, SELFPAY | END 2023-03-05 12:06 | disposition home or self-care (01) | LOC: HO.HOSX 12:05 | PROVIDERS: Visit Provider Physician Assistant | DX: S92.351A Displaced fracture of fifth metatarsal bone, right foot, initial encounter for closed fracture (principal); W19.XXXA Unspecified fall, initial encounter; Y93.9 Activity, unspecified; Y92.9 Unspecified place or not applicable; Y99.9 Unspecified external cause status; Z79.899 Other long term (current) drug therapy | CPT/HCPCS: 73630; 99202 ==

== ENCOUNTER 2023-04-19 09:05 | Outpatient (REF) | payer OTHER, SELFPAY | END 2023-04-19 09:06 | disposition home or self-care (01) | LOC: HO.HOSX 09:05 | PROVIDERS: Visit Provider Physician Assistant | DX: Z13.89 Encounter for screening for other disorder (principal) ==

== ENCOUNTER 2023-04-26 09:41 | Outpatient (REF) | payer OTHER, SELFPAY | END 2023-04-26 09:42 | disposition home or self-care (01) | LOC: HO.HOSX 09:41 | PROVIDERS: Visit Provider Physician Assistant | DX: Z13.89 Encounter for screening for other disorder (principal) ==

== ENCOUNTER 2023-07-01 11:30 | Outpatient (REF) | payer OTHER, SELFPAY ==
[2023-07-01 11:41] LABS: MANUAL DIFF FLAG NO
[2023-07-01 12:27] LABS: Basophils Absolute Auto 0.1 X10*3/uL (0.0-0.2); Basophils Percent Auto 0.8 % (0-2); Eosinophils Absolute Auto 0.3 X10*3/uL (0.0-0.4); Eosinophils Percent Auto 3.9 % (0-4); Hematocrit 44.4 % (37.0-47.0); Imm Gran Abs Auto 0.04 X10*3/uL (0.00-0.03); Imm Gran Pct Auto 0.5 % (0.0-0.4); Lymphocytes Absolute Auto 2.4 X10*3/uL (1.2-4.9); Lymphocytes Percent Auto 27.5 % (20-40); Mean Corpuscular HGB Conc 33.8 g/dl (31.0-35.0); Mean Corpuscular Hemoglobin 31.9 pg (27.0-33.0); Mean Corpuscular Volume 94.5 fL (80.0-98.0); Mean Platelet Volume 12.3 fL (9.4-12.3); Monocytes Absolute Auto 0.6 X10*3/uL (0.1-1.2); Neutrophils Absolute Auto 5.3 x10*3/uL (2.0-8.3); Neutrophils Percent Auto 60.3 % (45-73); Platelet Count 215 X10*3/uL (160-400); Red Cell Distribution Width 13.5 % (11.0-16.0); White Blood Count 8.8 X10*3/uL (4.8-10.8)
[2023-07-01 13:11] LABS: Alanine Aminotransferase 33 U/L (0-31); Albumin Level 4.1 g/dL (3.5-5.0); Alkaline Phosphatase 100 U/L (39-117); Anion Gap 10 (12-20); Aspartate Amino Transferase 20 U/L (5-31); Bilirubin Total 0.2 mg/dL (0.0-1.0); Blood Urea Nitrogen 11 mg/dL (9-16); Calcium 9.2 mg/dL (8.4-10.2); Carbon Dioxide 27 mmol/L (22-29); Chloride 110 mmol/L (96-108); Cholesterol 191 mg/dL (<200); Estimated Glomerular Filt Rate > 60; Glucose Random 116 mg/dL (60-115); HDL Cholesterol 45 mg/dL (>40); LDL Cholesterol Calculated 119 mg/dL (<100); Potassium 4.4 mmol/L (3.3-5.1); Sodium 143 mmol/L (135-145); Total Protein 7.3 g/dL (6.5-8.0); Triglycerides 139 mg/dL (<150)
[2023-07-01 13:28] LABS: Thyroid Stimulating Hormone 2.83 uIU/mL (0.32-4.0)
== END 2023-07-01 11:31 | disposition home or self-care (01) ==
LOC: HO.LAB 11:30
PROVIDERS: PCP Internal Medicine; Visit Provider Internal Medicine
DX: D50.9 Iron deficiency anemia, unspecified (principal); E78.00 Pure hypercholesterolemia, unspecified; H60.92 Unspecified otitis externa, left ear; I10 Essential (primary) hypertension; E03.9 Hypothyroidism, unspecified
CPT/HCPCS: 36415; 80053; 80061; 84443; 85025

== ENCOUNTER 2023-07-13 15:50 | Emergency (ER) | payer OTHER, SELFPAY ==
--- NOTE | ~2023-07-13 | XR_ITS ---
EXAMINATION: XR KNEE, RIGHT CLINICAL INFORMATION: Rule out patellar dislocation/fracture. COMPARISON: None available. TECHNIQUE: Four views of the right knee. FINDINGS: There is no fracture or dislocation. There is mild tricompartmental degenerative disease. There is no suprapatella effusion. There is edema within the subcutaneous tissues anterior to the distal aspect of the left femur. XR/XR knee RT 3V IMPRESSION: No fracture or dislocation. Mild tricompartmental degenerative change. No effusion. Subcutaneous edema as described.
[2023-07-13 16:06] VITALS: BP 172/89; PULSE 70; RESP 19; TEMP 37.1; O2SAT 98
[2023-07-13 16:07] VITALS: BP 137/78; BP 172/89; PULSE 65; PULSE 66; RESP 20; TEMP 37.1; O2SAT 96; O2SAT 97; BMI 51.4
--- NOTE | 2023-07-13 16:18 | ED_ITS ---
HPI - Fall General Chief Complaint: Fall Stated Complaint: knee injury w/ deformity after fall Time Seen by Provider: 07/13/23 16:07 Source: patient and EMS Mode of arrival: EMS Limitations: no limitations History of Present Illness HPI Narrative: Comes in the emergency room complaining of a right knee injury. Patient states that she was walking outside, took a step and her son all got caught in the pavement. Patient landed hard on her right knee. Patient states that she was able to walk for about 45 minutes, able to sit down and put ice on her knee. When she tried to get up, patient had severe pain. EMS was called, she was given 100 mcg of fentanyl. Patient denies being on blood thinners, denies any other injury. Related Data Home Medications ?Medication ?Instructions ?Recorded ?Confirmed levothyroxine 112 mcg capsule 112 mcg PO DAILY 10/28/20 03/05/23 sertraline 100 mg tablet (Zoloft) 100 mg PO DAILY 10/28/20 03/05/23 acamprosate 333 mg tablet,delayed 666 mg PO TID 03/05/23 03/05/23 release bupropion HCl 150 mg 24 hr tablet, 150 mg PO QAM 03/05/23 03/05/23 extended release Previous Rx's ?Medication ?Instructions ?Recorded benzonatate 200 mg capsule 200 mg PO BID PRN cough #30 caps 11/04/22 Kneeling Scooter #1 ea 03/05/23 ibuprofen 800 mg tablet 800 mg PO Q8H PRN pain 30 days #90 03/05/23 tabs Allergies Allergy/AdvReac Type Severity Reaction Status Date / Time No Known Allergies Allergy Verified 07/13/23 16:13 Review of Systems Review of Systems: Constitutional : No Weight loss, No Fever, No Chills, No Night Sweats, No Fatigue, No Malaise ENT/Mouth : No Hearing loss, No Ear Pain, No Nasal Congestion, No Sinus Pain, No Hoarseness, No sore throat, No Rhinorrhea, No Swallowing Difficulty Eyes: No Eye Pain, No Swelling, No Redness, No Foreign Body, No Discharge, No Vision Changes Cardiovascular : No Chest Pain, No SOB, No Dyspnea on Exertion, No Orthopnea, No Edema, No Palpitations Respiratory : No Cough, No Sputum, No Wheezing, No Smoke Exposure, No Dyspnea Gastrointestinal : No Nausea, No Vomiting, No Diarrhea, No Constipation, No abdominal Pain, No Hematochezia, No Melena Genitourinary : no irregular bleeding, No Dysuria, No Urinary Frequency, No Hematuria, No Urinary Incontinence, No Urgency, No Flank Pain, No Urinary Flow Changes, No Hesitancy Musculoskeletal : Complaining of right knee pain, No Myalgias, No Joint Swelling Skin : No Skin Lesions, No rash Neuro : No Weakness, No Numbness, No Paresthesias, No Loss of Consciousness, No Dizziness, No Headache Psych : No Anxiety/Panic, No Depression, No SI/HI/AH/VH, No Social Issues, Heme/Lymph: No Bruising, No Bleeding,No Lymphadenopathy Endocrine : No Polyuria, No Polydipsia, No Temperature Intolerance [facility] Past Medical History Medical History Hypothyroidism No known health problems Social History Social History Patient Tobacco Use Status: Current someday Tobacco user Advance Directives: No Advance Directives Information Provided: No Do you have a plan to hurt others: No Plan Patient : No 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 Oriented X3. No acute distress. Eyes: Pupils equal, round and reactive to light. ENT: Pharynx normal. Neck: Normal inspection. Neck supple. No lymph nodes noted. No crepitus CVS: Normal heart rate and rhythm. Pulses normal. Normal S1 and S2 Respiratory: No respiratory distress. Breath sounds normal. No Wheezing. No rales Abdomen: Soft and nontender. No rigidity. No distention. Skin: Skin warm and dry. Normal skin color. Normal skin turgor. Extremities: Patient unable to move her knee much due to pain. There is some bruising around the knee. There is no significant swelling. Does not seem to be deformed Neuro: Oriented X 3. No motor deficit. No sensory deficit. Moving all extremities. No slurred speech. CN 2 through 12 grossly intact Psych: calm, cooperative, normal affect Course Course Course Narrative: -patient given p.o. oxycodone in the ED -x-rays pending -patient provided with a knee immobilizer and crutches Medications Administered Discontinued Medications Generic Name Dose Route Start Last Admin Trade Name Freq PRN Reason Stop Dose Admin Ibuprofen 800 mg 07/13/23 18:28 07/13/23 19:18 Ibuprofen 800 Mg Tablet PO 07/13/23 18:29 800 mg ONCE ONE Administration Oxycodone HCl 5 mg 07/13/23 16:17 07/13/23 16:24 Oxycodone Hcl Immed Release 5 Mg Tablet PO 07/13/23 16:18 5 mg ONCE ONE Administration Medical Decision Making Medical Decision Making MDM Narrative: -my interpretation of x-rays: Normal alignment of patella and knee. No fractures -discussed with the patient that we will provide her with a knee immobilizer in with crutches, -patient does have a joint effusion at this time. Instructed to use ice and applied to the knee without direct contact. -patient instructed to follow-up with her PCP and orthopedics as patient may knee an MRI Differential Diagnosis Differential Diagnoses: The differential diagnosis associated with the presentation includes (Patellar fracture, dislocation, knee contusion) Discharge Plan Discharge Clinical Impression: Contusion of knee Patient Disposition: Home, Self-Care Instructions: Contusion in Adults (ED) Additional Instructions: Please follow-up with your primary care physician tomorrow. If you have any worsening or new symptoms, please return to the emergency room or call 911 Prescriptions: No Action ibuprofen 800 mg tablet 800 mg PO Q8H PRN (Reason: pain) 30 Days Qty: 90 3RF benzonatate 200 mg capsule 200 mg PO BID PRN (Reason: cough) Qty: 30 0RF sertraline [Zoloft] 100 mg tablet 100 mg PO DAILY levothyroxine 112 mcg capsule 112 mcg PO DAILY bupropion HCl 150 mg tablet extended release 24 hr 150 mg PO QAM acamprosate 333 mg tablet,delayed release (DR/EC) 666 mg PO TID (DME) Kneeling Scooter See Rx Instructions .ROUTE .MEDSUPPLY Qty: 1 0RF Rx Instructions: As directed Referrals: Gabby Cooper PA-C [Physician Packer Operator Automatic] - 07/14/23 Stand Alone Forms: Work/School Release Print Language: Persian
[2023-07-13] MEDS: oxyCODONE HCl Immed Release 5 MG TABLET PO (16:24)
--- OUTSIDE RECORDS SUMMARY | 2023-07-13 16:55 | XMS_ITS | Continuity of Care Document ---
Author Organization [facility] Address [address] [place] [address]- Care Team Providers Care Hospice Volunteer Coordinator Name Role Phone Lorena Delgado MD Primary Care Physician [phone] [place] [facility] [place]s): 07/30/20 - 10/19/20 [facility] [address] [place] [id number] Attending Physician: Jazmine Garcia MD Referring Physician: Lorena Delgado MD Allergies, Adverse Reactions, Alerts Substance Reaction Severity Status NKA Active Medications ibuprofen 600 mg oral tablet 1 tablet = 600 mg, By Mouth, 4 times a day, # 20 tablet, 0 Refills, Maintenance Start Date: 12/29/11 Stop Date: 01/03/12 Status: Ordered Vicodin 500 mg-5 mg oral tablet 1 tablet, By Mouth, Every 6 hours, PRN for pain, # 12 tablet, 0 Refills, Maintenance, Tablet Start Date: 12/29/11 Stop Date: 01/01/12 Status: Ordered
--- OUTSIDE RECORDS SUMMARY | 2023-07-13 16:55 | XMS_ITS | Continuity of Care Document ---
Author Organization [facility] Address [address] [place] [address]- Care Team Providers Care Criminology Teacher Name Role Phone Lorena Delgado MD Primary Care Physician Encounter [facility] [place] Date(s): 09/19/20 - 10/19/20 [facility] [address] [place] [address]- Attending Physician: Beatrice Nguyen Admitting Physician: AdmBeatrice paz Referring Physician: Admtr ArLibia Allergies, Adverse Reactions, Alerts Substance Reaction Severity [...]
--- OUTSIDE RECORDS SUMMARY | 2023-07-13 16:55 | XMS_ITS | Continuity of Care Document ---
Author Organization [facility] ter Address [address] [place] [address]- Care Team Providers Care Mammal Control Agent Name Role Phone Lorena Delgado MD Primary Care Physician Encounter [facility] [place] Date(s): 12/05/19 - 08/02/[address] [address] Attending Physician: Lorena Delgado MD Admitting Physician: Lorena Delgado MD Referring Physician: Lorena Delgado MD Allergies, [...]
--- OUTSIDE RECORDS SUMMARY | 2023-07-13 16:55 | XMS_ITS | Patient Health Record ---
Author Organization Brian Slaughter III, MD Address [address] [place] [address] Care Team Providers Care Detail Supervisor Name Role Phone Danny ERICKSON, [facility] Primary Care Provider Brian Cheng Unavailable [phone] REASON FOR REFERRAL No Information MEDICATIONS Medication SIG (Take, Route, Frequency, Duration) Notes Start Date End Date Status Ventolin HFA 108 (90 Base) MCG/ACT Inhalation Active Levothyroxine Sodium 100 MCG Oral Active Losartan Potassium-HCTZ 50-12.5 MG TAKE 1 TABLET BY MOUTH DAILY Oral Active Naltrexone HCl 50 MG TAKE 1 TABLET BY [place] [facility] EVERY DAY Oral Active Paxlovid (300/100) 20 x 150 MG & 10 x 100MG Oral Active Sertraline HCl 100 MG Oral Active SOCIAL HISTORY Sex Assigned At : Social History Observation Description Sex Assigned At Unknown PROBLEMS Problem Type ICD Code Onset Dates Problem Status W/U Status Risk SNOMED Code Notes Problem Acquired hypothyroidism (E03.9) Active confirmed [id number] She will continue on the current dose of levothyroxine replacement hormone. Her primary care physician will return to [facility] for followup. 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 Problem Atelectasis (J98.11) Active confirmed [id number] And x-ray in the past for atelectasis in the right lower lobe. Problem Degenerative disc disease at L5-S1 level (M51.37) Active confirmed 70449075 A CT scan of the abdomen done recently showed degenerative disc disease at L4-5 and L5-S1. PLAN OF TREATMENT No Information Insurance Providers Payer Name Payer Address Payer Phone Subscriber Number Group Number Insured Name Patient Relationship to Insured Coverage Start Date Coverage End Date [facility] [employer] [facility] [address] [place] [phone] [id number] Naya Jung Self - patient is the insured MEDICAL (GENERAL) HISTORY Medical History History ICD Code Fibroids Endometrial biopsy October 2020 for bleed ing Number by he insists Right lower lobe atelectasis Cholelithiasis Umbilical hernia Degenerative disc disease L4-S1 Morbid obesity BMI of 46.8 Depression Hypothyroid Surgical History Surgery Date(Month/Year) Endometrial biopsy negative results 11/01 20
--- OUTSIDE RECORDS SUMMARY | 2023-07-13 16:55 | XMS_ITS | Continuity of Care Document ---
Author Organization [facility] Address [address] [place] [address]- Care Team Providers Care Barrel Dedenting Machine Operator Name Role Phone Lorena Delgado MD Primary Care Physician [phone] Encounter [facility] [place] Date(s): 07/30/20 - 10/31/20 [facility] [address] [place] [address]- Attending Physician: Jazmine Garcia MD Admitting Physician: Jazmine Garcia MD Referring Physician: Lorena [...]
--- OUTSIDE RECORDS SUMMARY | 2023-07-13 16:55 | XMS_ITS | Continuity of Care Document ---
Author Organization [facility] ter Address [address] [place] [address]- Care Team Providers Care Rigging Man Name Role Phone Lorena Delgado MD Primary Care Physician [place] [facility] [place] 02/28/19 - 02/28/[address] [address] Attending Physician: Lorena Delgado MD Allergies, Adverse Reactions, [...]
--- OUTSIDE RECORDS SUMMARY | 2023-07-13 16:55 | XMS_ITS | Continuity of Care Document ---
Author Organization [facility] Address [address] [place] [address]- Care Team Providers Care Hydrographer Name Role Phone Lorena Delgado MD Primary Care Physician [phone] [place] [facility] [place](s[place] 10/01/20 - 10/31/20 [facility] [address] [place] [address]- Attending Physician: Beatrice Nguyen Admitting Physician: AdmBeatrice [...]
--- NOTE | 2023-07-13 19:12 | PC.NURSE ---
This RN assumed pt care @ 1900
[2023-07-13] MEDS: Ibuprofen 800 MG TABLET PO (19:18)
--- NOTE | 2023-07-13 19:27 | PC.NURSE ---
Pt ca&ox4, no signs of distress. Pt resting in bed comfortably. Pt requesting a work note for wednesday Pt medicated per may. Plan of care ongoing.
[2023-07-13 20:22] VITALS: BP 170/88; PULSE 65; RESP 18; TEMP 37.1; O2SAT 98
--- NOTE | 2023-07-13 20:37 | PC.NURSE ---
medical laboratory technician Leeanna fitted pt for crutches and knee immobilizer Pt wheeled out to waiting room in wheelchair Plan of care ongoing.
== END 2023-07-13 20:38 | disposition home or self-care (01) ==
PROVIDERS: Emergency Provider Emergency Medicine; PCP Internal Medicine
DX: S80.01XA Contusion of right knee, initial encounter (principal); W18.30XA Fall on same level, unspecified, initial encounter; Y93.01 Activity, walking, marching and hiking; Y92.9 Unspecified place or not applicable; Y99.9 Unspecified external cause status
CPT/HCPCS: 73562; 99283; 99284

== ENCOUNTER 2023-07-23 11:08 | Outpatient (AMB) | payer OTHER, SELFPAY ==
--- NOTE | 2023-07-23 11:36 | A.OFFVIS_ITS ---
Vital Signs 07/23/23 11:42 Height 5 ft 3 in Weight 290 lb BMI 51.4 Intake Visit Reasons: FC - Left lateral Tibial Plateau Fx 07/13/23 Intake Note: Naya a 58 year old female who presents today for a WC injury to her left knee. Patient reports while she was at work she took a walk outside, she tripped and fell hard on her right knee. She was transported to [facility] by ambulance, xrays were taken and placed in a knee immobilizer. States brace was too big so she d/c use. She continues to have swelling and drainage from the abrasion on her knee. Currently her knee feels tight as well as her calf area. Finds no relief with ibuprofen. Allergies No Known Allergies Allergy (Verified 07/23/23 11:48) HPI HPI FC - Left lateral Tibial Plateau Fx 07/13/23: Details: 58-year-old female who presents to the office today for evaluation of left knee injury, 07/13/23. She reports she tripped and fell ?hard? on her left knee while taking a walk at work. She was transported to ED by ambulance where x-rays were performed and she was placed in a knee immobilizer. She feels as though her leg is very heavy and has pain in her knee which has been getting worse. She continues to have swelling, redness and drainage from her knee abrasion. She also experiences tightness in her knee and calf area. She was given a boot which she discontinued as it was heavy for her. She finds no relief with ibuprofen. She has a history of prediabetes. 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 Redness with significant hematoma over the bursa with 2 superficial skin abrasions. No active drainage. She can fully extend and flex the knee to 95 degrees. Able to perform SLR. She does have some ecchymosis which extends to the quad down to the calf region. No active drainage. Calf supple, nontender surrounding cellulitis. NVI. Office Procedures Joint Injection/Drain Joint Injection/Drain Primary Site: right knee Prep: site was prepped using aseptic technique and injection warnings given Injected: with 4 mL of and 1% plain lidocaine Approach Used: anterior Procedure: The patient tolerated the procedure well and there was some relief with the local anesthesia Coding Procedure code (CPT) selection complete Results Reviewed Results Reviewed: xrays of the right knee negative for acute fracture or dislocation Assessment & Plan Assessment & Plan (1) Rupture of right quadriceps tendon: Code(s): S76.111A - Strain of right quadriceps muscle, fascia and tendon, initial encounter Category: Medical (2) Prepatellar bursitis, right knee: Code(s): M70.41 - Prepatellar bursitis, right knee Category: Medical Plan Dr. Bird was available to see the patient with me today. We made a stab incision along the anterior aspect of the knee over the bursa and expression old, hematoma from the bursa. No purulant drainage. We did place a dry dressing over the knee and sent a rx for bactrim ds bid to the pharmacy in the setting of potential cellulitis. A STAT MRI of the right knee has been ordered to further evaluate the quad tendon and she will see me back on Wednesday for a wound check. She will contact our office if she develops worsening pain, redness or drainage. Orders: Orders MR knee RT wo con 07/23/23 S76.111A - Strain of right quadriceps muscle, fascia and tendon, initial encounter Medications: New sulfamethoxazole-trimethoprim 800-160 mg (Bactrim DS) 1 tab PO BID 20 tabs 0RF suture abscess 10 days Patient Instructions: Scribed for Celso Darby PA-C, by Steve Lloyd biomedical engineering director, on 07/23/2023 at 11:15 AM EST. Celso Kelley PA-C, have personally reviewed and agree with the information entered by the scribe. Coding Level of Care Code Est Pt Level 4 (25842) Diagnoses Rupture of right quadriceps tendon S76.111A Prepatellar bursitis, right knee M70.41
[2023-07-23 11:42] VITALS: BMI 51.4
== END 2023-07-23 12:41 | disposition home or self-care (01) ==
PROVIDERS: PCP Internal Medicine; Visit Provider Physician Assistant
DX: S76.111A Strain of right quadriceps muscle, fascia and tendon, initial encounter (principal); M70.41 Prepatellar bursitis, right knee
CPT/HCPCS: 20610; 99214

== ENCOUNTER → 2023-07-23 11:08 | Outpatient (BNVA) | payer OTHER, SELFPAY | PROVIDERS: PCP Internal Medicine; Visit Provider Physician Assistant | DX: S76.111A Strain of right quadriceps muscle, fascia and tendon, initial encounter (principal); M70.41 Prepatellar bursitis, right knee | CPT/HCPCS: 20610; 99212 ==

== ENCOUNTER 2023-07-26 14:09 | Outpatient (AMB) | payer OTHER, SELFPAY ==
--- OUTSIDE RECORDS SUMMARY | 2023-07-26 14:11 | XMS_ITS | Patient Health Record ---
Author Organization Brian Slaughter III, MD Address [address] [place] [address] Care Team Providers Care Rn Paralegal Name Role Phone Danny ERICKSON, [facility] Primary Care Provider Brian Cheng Unavailable [phone] REASON FOR REFERRAL No Information MEDICATIONS Medication SIG (Take, Route, Frequency, Duration) Notes Start Date End Date Status Ventolin HFA 108 (90 Base) MCG/ACT Inhalation Active Levothyroxine Sodium 100 MCG Oral Active Losartan Potassium-HCTZ 50-12.5 MG TAKE 1 TABLET BY MOUTH DAILY Oral Active Naltrexone HCl 50 MG TAKE 1 TABLET BY [place] [facility] EVERY DAY Oral Active Paxlovid (300/100) 20 x 150 MG & 10 x 100MG Oral Active Sertraline HCl 100 MG Oral Active SOCIAL HISTORY Sex Assigned At : Social History Observation Description Sex Assigned At Unknown PROBLEMS Problem Type ICD Code Onset Dates Problem Status W/U Status Risk SNOMED Code Notes Problem Acquired hypothyroidism (E03.9) Active confirmed [id number] She will continue on the current dose of levothyroxine replacement hormone. Her primary care physician will return to [facility] tomorrow for followup. 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 Problem Atelectasis (J98.11) Active confirmed 15731727 And x-ray in the past for atelectasis in the right lower lobe. Problem Degenerative disc disease at L5-S1 level (M51.37) Active confirmed 36699108 A CT scan of the abdomen done recently showed degenerative disc disease at L4-5 and L5-S1. PLAN OF TREATMENT No Information Insurance Providers Payer Name Payer Address Payer Phone Subscriber Number Group Number Insured Name Patient Relationship to Insured Coverage Start Date Coverage End Date [facility] [address] [place] [phone] [id number] Naya Jung Self - patient is the insured MEDICAL (GENERAL) HISTORY Medical History History ICD Code Fibroids Endometrial biopsy October 2020 for bleed ing Number by he insists Right lower lobe atelectasis Cholelithiasis Umbilical hernia Degenerative disc disease L4-S1 Morbid obesity BMI of 46.8 Depression Hypothyroid Surgical History Surgery Date(Month/Year) Endometrial biopsy negative results 11/01 20
--- NOTE | 2023-07-26 14:17 | MHC.OFFVIS ---
Intake Visit Reasons: OV-Wound check right knee Intake Note: Naya a 58 year old female who presents today for a wound check s/p WC injury to her left knee, DOI 07/13/23. Patient reports she continues to have soreness. Allergies No Known Allergies Allergy (Verified 07/23/23 11:48) HPI HPI OV-Wound check right knee: Details: 58-year-old female who returns to the office today for a wound check s/p right knee WC injury, 07/13/23. She states she is doing well however she continues to have soreness in her knee. She has no other concerns today. 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 Review of Systems Const All systems reviewed & are unremarkable except as noted in HPI and below Physical Exam Const General: cooperative, healthy appearing, comfortable, no acute distress, well developed and alert Orientation/consciousness: patient oriented x3 HEENT Head: Yes normal to inspection, Yes normocephalic and Yes atraumatic Eyes General: appearance normal, both eyes and all related structures Resp Effort & Inspection: normal respiratory effort and able to speak in complete sentences Cardio Rate: regular rate Peripheral pulses: Peripheral pulses 2+ throughout GI Palpation (GI): Soft to palpation Skin Lesions: no lesions Rashes: no rashes Neuro General: patient oriented x3 Extrem Other: Right knee: Deformity superior to the patella along the quad tendon insertion with mild tenderness. improving hematoma over the bursa with 2 superficial skin abrasions. No active drainage. She can fully extend and flex the knee to 95 degrees. Able to perform SLR. She does have some ecchymosis which extends to the quad down to the calf region. No active drainage. Calf supple, nontender surrounding cellulitis. NVI. Assessment & Plan Assessment & Plan (1) Rupture of right quadriceps tendon: Code(s): S76.111A - Strain of right quadriceps muscle, fascia and tendon, initial encounter Category: Medical (2) Prepatellar bursitis, right knee: Code(s): M70.41 - Prepatellar bursitis, right knee Category: Medical Plan Dr. Bird was available to see the patient with me today. She will continue with PO antibiotics. Her MRI was approved by and she will be getting booked accordingly. She will see us back on Wednesday for a wound check, sooner if needed. Medications: New [knee high compression stocking] 30/40mmHG 1 ea 0RF Edema R60.9 - Edema, unspecified [knee high compression stocking] 30/40mmHG 1 ea 0RF Edema R60.9 - Edema, unspecified Patient Instructions: Scribed for Celso Darby PA-C, by Steve Lloyd medical scientific officer, on 07/14/2023 at 2:30 PM KEZIA. Celso Kelley PA-C, have personally reviewed and agree with the information entered by the scribe. Coding Level of Care Code Est Pt Level 3 (32290) Diagnoses Rupture of right quadriceps tendon S76.111A Prepatellar bursitis, right knee M70.41
== END 2023-07-26 14:46 | disposition home or self-care (01) ==
LOC: HO.HOS 14:09
PROVIDERS: PCP Internal Medicine; Visit Provider Physician Assistant
DX: S76.111A Strain of right quadriceps muscle, fascia and tendon, initial encounter (principal); M70.41 Prepatellar bursitis, right knee
CPT/HCPCS: 99213

== ENCOUNTER → 2023-07-26 14:09 | Outpatient (BNVA) | payer OTHER, SELFPAY | PROVIDERS: PCP Internal Medicine; Visit Provider Physician Assistant | DX: S76.111D Strain of right quadriceps muscle, fascia and tendon, subsequent encounter (principal); M70.41 Prepatellar bursitis, right knee | CPT/HCPCS: 99212 ==

== ENCOUNTER 2023-07-28 11:02 | Outpatient (REF) | payer OTHER, SELFPAY ==
--- NOTE | ~2023-07-28 | MR_ITS ---
EXAMINATION: MR KNEE WITHOUT CONTRAST, RIGHT CLINICAL INFORMATION: Right knee pain and swelling. Quadriceps muscle strain. COMPARISON: Right knee radiographs dated 07/13/2023. TECHNIQUE: MRI of the knee without contrast was performed using routine sequences on a high-field scanner. FINDINGS: MENISCI: Medial Meniscus: Diffuse attenuation and irregularity of the posterior horn and root with medial extrusion of the meniscal body, which is significantly heterogeneous. Findings are consistent with complex tearing. Mild adjacent soft tissue edema. Lateral Meniscus: Intact. LIGAMENTS: Cruciate: Attenuation of the anterior cruciate ligament without significant edema, consistent with a chronic partial tear. Intact posterior cruciate ligament. No evidence of acute ligament injury. Collateral: Intact. EXTENSOR MECHANISM: Intact quadriceps and patellar tendons. Normal patellofemoral alignment. Ventral to the extensor mechanism there is a complex subcutaneous fluid collection measuring approximately 1.7 x 10.0 x 12.1 cm. Mild adjacent soft tissue stranding. Findings are consistent with an evolving hematoma. ARTICULAR CARTILAGE/BONE: Patellofemoral Compartment: Mild articular cartilage signal heterogeneity with small marginal osteophytes. Medial Compartment: Full-thickness weightbearing medial femoral condyle and medial tibial plateau articular cartilage loss with subchondral cystic change and marrow edema as well as mild bony remodeling. Large marginal osteophytes. Lateral Compartment: Articular cartilage signal heterogeneity with subchondral cystic change at the lateral tibial plateau. Marginal osteophytes. JOINT FLUID AND BURSAE: Unremarkable. MR/MR knee RT wo con IMPRESSION: 1. Complex tearing of the medial meniscus posterior horn and root with medial extrusion of the meniscal body. Mild adjacent soft tissue edema. 2. Severe medial as well as mild patellofemoral and lateral compartment osteoarthritis. 3. Probable chronic partial tear of the anterior cruciate ligament. No evidence of acute ligament injury. 4. Complex subcutaneous fluid collection ventral to the extensor mechanism measuring up to 12.1 cm with mild adjacent soft tissue stranding, consistent with an evolving hematoma.
== END 2023-07-28 11:03 | disposition home or self-care (01) ==
LOC: HO.MRI 11:02
PROVIDERS: PCP Internal Medicine; Visit Provider Physician Assistant
DX: S76.111A Strain of right quadriceps muscle, fascia and tendon, initial encounter (principal)
CPT/HCPCS: 73721

== ENCOUNTER 2023-08-02 08:35 | Outpatient (AMB) | payer OTHER, SELFPAY ==
--- NOTE | 2023-08-02 08:37 | MHC.OFFVIS ---
Vital Signs 08/02/23 08:38 Height 5 ft 3 in Weight 290 lb BMI 51.4 Intake Visit Reasons: OV - Right Knee MRI Review Intake Note: Naya is a 58 year old female who presents today for an MRI review of her right knee. s/p WC injury to her left knee, DOI 07/13/23. She report that she stopped taking the ABX on Wednesday as she no longer wanted to take them, she did not finish Rx. Allergies No Known Allergies Allergy (Verified 07/23/23 11:48) HPI HPI OV - Right Knee MRI Review: Details: Naya is a 58 year old female who presents today for an MRI review of her right knee. s/p WC injury to her left knee, DOI 07/13/23. She report that she stopped taking the ABX on Wednesday as she no longer wanted to take them, she did not finish Rx. She has returned to work and after about 5 hours has difficulty with pain and throbbing and swelling. 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 No evidence of infection. Range of motion markedly improved compared to prior. No joint line tenderness and negative Felisa's. Results Reviewed Results Reviewed: I personally reviewed the MR images. IMPRESSION: 1. Complex tearing of the medial meniscus posterior horn and root with medial extrusion of the meniscal body. Mild adjacent soft tissue edema. 2. Severe medial as well as mild patellofemoral and lateral compartment osteoarthritis. 3. Probable chronic partial tear of the anterior cruciate ligament. No evidence of acute ligament injury. 4. Complex subcutaneous fluid collection ventral to the extensor mechanism measuring up to 12.1 cm with mild adjacent soft tissue stranding, consistent with an evolving hematoma. Assessment & Plan Assessment & Plan (1) Prepatellar bursitis, right knee: Code(s): M70.41 - Prepatellar bursitis, right knee Category: Medical Plan: Resolving hematoma in the prepatellar bursa. She should follow up in 2 weeks with our PA. I wrote her a note for work. No physical restrictions other than she should not work more than 5 hours a day until follow-up. Coding Level of Care Code Est Pt Level 3 (63553) Diagnoses Prepatellar bursitis, right knee M70.41
[2023-08-02 08:38] VITALS: BMI 51.4
== END 2023-08-02 09:10 | disposition home or self-care (01) ==
PROVIDERS: PCP Internal Medicine; Visit Provider Orthopaedic Surgery
DX: M70.41 Prepatellar bursitis, right knee (principal)
CPT/HCPCS: 99213

== ENCOUNTER → 2023-08-02 08:35 | Outpatient (BNVA) | payer OTHER, SELFPAY | PROVIDERS: PCP Internal Medicine; Visit Provider Orthopaedic Surgery | DX: M70.41 Prepatellar bursitis, right knee (principal) | CPT/HCPCS: 99212 ==

== ENCOUNTER 2023-08-05 10:38 | Outpatient (AMB) | payer OTHER, SELFPAY ==
--- NOTE | 2023-08-05 10:44 | A.OFFVIS_ITS ---
Vital Signs 08/05/23 10:47 Height 5 ft 3 in Weight 290 lb BMI 51.4 Intake Visit Reasons: O/V concerns of cellulitis of the right leg Intake Note: Naya is a 58 year old female who presents today for a follow up of her right knee s/p WC injury to her left knee, DOI 07/13/23. Patient reports her knee is getting worse, states her knee is painful, warm to the touch and tightness. Allergies No Known Allergies Allergy (Verified 08/05/23 10:54) HPI HPI O/V concerns of cellulitis of the right leg: Details: 58-year-old female who returns to the office today for a follow-up of right knee injury, 07/13/23. She states she has worsening pain as well as tightness and warm to touch on her knee. She has no other concerns today. 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 She has an abrasion over the anterior portion of the knee which is not actively draining. She has full ROM without pain. Calf supple, nontender. NVI. Assessment & Plan Assessment & Plan (1) Prepatellar bursitis, right knee: Code(s): M70.41 - Prepatellar bursitis, right knee Category: Medical Plan We discussed options today and she does appear to have borderline septic bursitis. We did have her on PO antibiotics in the past but I feel she should be evaluated by ED to determine if IV antibiotics are necessary. I did call the ED and discussed our plan to them. I would also like her to meet Dr. Arenas if she gets to the office and follow her if she is responding. If she is not responding or symptoms get worse, we might need to perform a procedure such as bedside I&D in the OR. Patient is content with this plan. Patient Instructions: Scribed for Celso Darby PA-C, by Steve Lloyd, medical laboratory specialist, on 08/05/2023 at 10:45 AM EST.? I, Celso Darby PA-C, have personally reviewed and agree with the information entered by the scribe. Coding Level of Care Code Est Pt Level 3 (38426) Diagnoses Prepatellar bursitis, right knee M70.41
[2023-08-05 10:47] VITALS: BMI 51.4
== END 2023-08-05 11:52 | disposition home or self-care (01) ==
PROVIDERS: PCP Internal Medicine; Visit Provider Physician Assistant
DX: M70.41 Prepatellar bursitis, right knee (principal); Z04.2 Encounter for examination and observation following work accident
CPT/HCPCS: 99213

== ENCOUNTER → 2023-08-05 10:38 | Outpatient (BNVA) | payer OTHER, SELFPAY | PROVIDERS: PCP Internal Medicine; Visit Provider Physician Assistant | DX: M70.41 Prepatellar bursitis, right knee (principal) | CPT/HCPCS: 99212 ==

== ENCOUNTER 2023-08-05 23:33 | Inpatient (IN) | payer OTHER, SELFPAY ==
[2023-08-06 00:09] VITALS: BP 111/56; PULSE 84; RESP 20; TEMP 36.6; O2SAT 96; BMI 50.5
[2023-08-06 00:29] LABS: MANUAL DIFF FLAG NO
[2023-08-06 00:30] LABS: Basophils Absolute Auto 0.1 X10*3/uL (0.0-0.2); Basophils Percent Auto 0.6 % (0-2); Eosinophils Absolute Auto 0.2 X10*3/uL (0.0-0.4); Eosinophils Percent Auto 1.9 % (0-4); Hematocrit 39.3 % (37.0-47.0); Hemoglobin 13.6 g/dl (12.0-16.0); Imm Gran Abs Auto 0.14 X10*3/uL (0.00-0.03); Imm Gran Pct Auto 1.2 % (0.0-0.4); Lymphocytes Absolute Auto 3.5 X10*3/uL (1.2-4.9); Lymphocytes Percent Auto 30.7 % (20-40); Mean Corpuscular HGB Conc 34.6 g/dl (31.0-35.0); Mean Corpuscular Hemoglobin 31.7 pg (27.0-33.0); Mean Corpuscular Volume 91.6 fL (80.0-98.0); Mean Platelet Volume 11.2 fL (9.4-12.3); Monocytes Absolute Auto 0.6 X10*3/uL (0.1-1.2); Monocytes Percent Auto 5.6 % (2-11); Neutrophils Absolute Auto 6.8 x10*3/uL (2.0-8.3); Platelet Count 314 X10*3/uL (160-400); Red Blood Count 4.29 X10*6/uL (4.20-5.50); Red Cell Distribution Width 13.5 % (11.0-16.0); White Blood Count 11.3 X10*3/uL (4.8-10.8)
[2023-08-06 00:42] LABS: Lactic Acid 2.1 mmol/L (0.5-2.0)
[2023-08-06 00:45] LABS: Alanine Aminotransferase 24 U/L (0-31); Albumin Level 4.2 g/dL (3.5-5.0); Alkaline Phosphatase 90 U/L (39-117); Anion Gap 20 (12-20); Aspartate Amino Transferase 27 U/L (5-31); Bilirubin Total 0.3 mg/dL (0.0-1.0); Blood Urea Nitrogen 8 mg/dL (9-16); Calcium 9.7 mg/dL (8.4-10.2); Carbon Dioxide 22 mmol/L (22-29); Chloride 103 mmol/L (96-108); Creatinine Clr Calc Pharmacy 76.1; Estimated Glomerular Filt Rate 53; Glucose Random 127 mg/dL (60-115); Potassium 3.7 mmol/L (3.3-5.1); Sodium 141 mmol/L (135-145)
--- OUTSIDE RECORDS SUMMARY | 2023-08-06 01:42 | XMS_ITS | Patient Health Record ---
Author Organization Brian Slaughter III, MD Address [address] [place] [address] Care Team Providers Care Director Of Learning Name Role Phone Danny ERICKSON, [facility] Primary Care Provider Brian Cheng Unavailable [phone] REASON FOR REFERRAL No Information MEDICATIONS Medication SIG (Take, Route, Frequency, Duration) Notes Start Date End Date Status Ventolin HFA 108 (90 Base) MCG/ACT Inhalation Active Levothyroxine Sodium 100 MCG Oral Active Losartan Potassium-HCTZ 50-12.5 MG TAKE 1 TABLET BY MOUTH DAILY Oral Active Naltrexone HCl 50 MG TAKE 1 TABLET BY MO [facility] EVERY DAY Oral Active Paxlovid (300/100) 20 x 150 MG & 10 x 100MG Oral Active Sertraline HCl 100 MG Oral Active SOCIAL HISTORY Sex Assigned At : Social History Observation Description Sex Assigned At Unknown PROBLEMS Problem Type ICD Code Onset Dates Problem Status W/U Status Risk SNOMED Code Notes Problem Acquired hypothyroidism (E03.9) Active confirmed [id number] She will continue on the current dose of levothyroxine replacement hormone. Her primary care physician will return to [facility] tomorrow for followup. 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 Problem Atelectasis (J98.11) Active confirmed [id number] And x-ray in the past for atelectasis in the right lower lobe. Problem Degenerative disc disease at L5-S1 level (M51.37) Active confirmed [id number] A CT scan of the abdomen done recently showed degenerative disc disease at L4-5 and L5-S1. PLAN OF TREATMENT No Information Insurance Providers Payer Name Payer Address Payer Phone Subscriber Number Group Number Insured Name Patient Relationship to Insured Coverage Start Date Coverage End Date [facility] [employer] [facility] [address] [place] [phone] [id number] Naya Jung Self - patient is the insured MEDICAL (GENERAL) HISTORY Medical History History ICD Code Fibroids Endometrial biopsy October 2020 for bleed ing Number by he insists Right lower lobe atelectasis Cholelithiasis Umbilical hernia Degenerative disc disease L4-S1 Morbid obesity BMI of 46.8 Depression Hypothyroid Surgical History Surgery Date(Month/Year) Endometrial biopsy negative results 11/01 20
--- NOTE | 2023-08-06 01:55 | ED_ITS ---
HPI - General Adult General Chief complaint: Skin/Abscess/Foreign Body Stated complaint: sent by pcp, IV needed Time Seen by Provider: 08/06/23 01:24 Source: patient Mode of arrival: ambulatory Limitations: no limitations History of Present Illness ED Provider: DR. Estrada HPI narrative: Naya is a 58 year old female who was sent from orthopedic surgeon for admission and IV antibiotic, who presents today for a follow up of her right knee s/p WC injury to her left knee, DOI 07/13/23. Patient reports her knee is getting worse, states her knee is painful, warm to the touch and tightness. Patient was placed on p.o. antibiotic that patient did not finish the whole course sent to the ED for hospitalization and IV antibiotic. Had MRI of the right knee revealed the followin. Complex tearing of the medial meniscus posterior horn and root with medial extrusion of the meniscal body. Mild adjacent soft tissue edema. 2. Severe medial as well as mild patellofemoral and lateral compartment osteoarthritis. 3. Probable chronic partial tear of the anterior cruciate ligament. No evidence of acute ligament injury. 4. Complex subcutaneous fluid collection ventral to the extensor mechanism measuring up to 12.1 cm with mild adjacent soft tissue stranding, consistent with an evolving hematoma. Related Data Home Medications ?Medication ?Instructions ?Recorded ?Confirmed levothyroxine 112 mcg capsule 112 mcg PO DAILY 10/28/20 03/05/23 sertraline 100 mg tablet (Zoloft) 100 mg PO DAILY 10/28/20 03/05/23 acamprosate 333 mg tablet,delayed 666 mg PO TID 03/05/23 03/05/23 release bupropion HCl 150 mg 24 hr tablet, 150 mg PO QAM 03/05/23 03/05/23 extended release Previous Rx's ?Medication ?Instructions ?Recorded benzonatate 200 mg capsule 200 mg PO BID PRN cough #30 caps 11/04/22 Kneeling Scooter #1 ea 03/05/23 ibuprofen 800 mg tablet 800 mg PO Q8H PRN for pain #90 tabs 07/22/23 sulfamethoxazole 800 1 tab PO BID suture abscess 10 07/23/23 mg-trimethoprim 160 mg tablet days #20 tabs (Bactrim DS) knee high compression stocking #1 ea 07/26/23 Allergies Allergy/AdvReac Type Severity Reaction Status Date / Time No Known Allergies Allergy Verified 08/06/23 00:13 Review of Systems 2 Review of Systems: All other systems are reviewed and are negative Constitutional: Reports as per HPI and Reports no additional constitutional complaints Eyes: Reports as per HPI and Reports no additional eye complaints Reports system reviewed and no additional complaints, except as documented Cardiovascular: Reports as per HPI and Reports no additional cardiovascular complaints Respiratory: Reports as per HPI and Reports no additional respiratory complaints Gastrointestinal: Reports as per HPI and Reports no additional gastrointestinal complaints Genitourinary: Reports no additional female genitourinary complaints Musculoskeletal: Reports no additional musculoskeletal complaints Skin/Breast: Reports system reviewed and no additional complaints, except as docu Psychiatric: Reports no additional psychiatric complaints Endocrine: Reports no additional endocrine complaints Hematologic/Lymphatic: Reports no additional hematologic/lymphatic complaints Allergic/Immunologic: Reports no additional allergic/immunologic complaints Reports system reviewed and no additional complaints, except as documented and Reports Abnormal speech present [facility] Past Medical History Medical History Hypothyroidism No known health problems Social History Social History Patient Tobacco Use Status: Former Tobacco user Advance Directives: No Advance Directives Information Provided: Yes Do you have a plan to hurt others: No 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 Blood pressure elevated. Heart rate normal. Respiratory rate normal. Temperature normal. Oxygen saturation normal. Appearance: Alert. Oriented X3. No acute distress. Head: Normal external exam. Normocephalic. Atraumatic. No Sharif signs noted. No raccoon eyes noted Eyes: PERRLA. EOMI. Conjunctiva and sclera normal. Eyelids normal. ENT: TM's Normal. Pharynx normal. Uvula midline. Moist mucous membranes. No trismus noted. No drooling noted. No muffled voice noted. Neck: Normal inspection. Neck supple. FROM. No adenopathy. Thyroid Normal. No meningeal signs. No neck mass noted. CVS: Normal heart rate and rhythm. Heart sound normal. No murmurs noted. Pulses normal throughout. Respiratory: No respiratory distress. Painless inspiration. Breath sounds normal. No wheezes/rales/rhonchi noted. Chest nontender. No accessory muscle usage noted or decreased air movement noted. Abdomen: Soft and nontender. Bowel sounds normal in all 4 quadrants. No distention noted. No organomegaly noted. No visible injury noted. Back: No CVA tenderness. Full range of motion noted. Skin: Skin warm and dry. Normal skin color. Normal skin turgor. No rashes/lesions/lacerations noted. Extremities: Right knee exam: Old healing scars on right knee, limited range of motion due to tenderness, redness and hotness is appreciated on right knee. Neuro: Oriented X 3. Cranial nerve exam: II-XII are grossly intact No motor deficit. No sensory deficit. Reflexes normal. Course Reevaluation(s) Reevaluation #1: 58-year-old female s/p fall related to work injury causing superficial cellulitis of the right knee, patient did not improve with oral antibiotic sent by Orthopedic for admission and IV antibiotic. Patient is not in severe sepsis or septic shock. Simple uncomplicated left knee skin cellulitis not responding oral antibiotic. Time: 02:14 Medical Decision Making Differential Diagnosis Differential Diagnoses: The differential diagnosis associated with the presentation includes (Right knee cellulitis, electrolyte derangement, severe anemia.) Admission/Observation Consideration of admission/observation: Escalation of care including admission/observation considered Consult Healthcare Provider Management of the patient was discussed with: Hospitalist (Dr. Broussard) Lab Data MDM Lab Attestation statement: I reviewed the patient's lab results. 08/06/23 00:19 08/06/23 00:19 Labs: Lab Results 08/06/23 Range/Units 00:19 WBC 11.3 H (4.8-10.8) X10*3/uL RBC 4.29 (4.20-5.50) X10*6/uL Hgb 13.6 (12.0-16.0) g/dl Hct 39.3 (37.0-47.0) % MCV 91.6 (80.0-98.0) fL MCH 31.7 (27.0-33.0) pg MCHC 34.6 (31.0-35.0) g/dl RDW 13.5 (11.0-16.0) % Plt Count 314 D (160-400) X10*3/uL MPV 11.2 (9.4-12.3) fL Immature Gran % (Auto) 1.2 H (0.0-0.4) % Neut % (Auto) 60.0 (45-73) % Lymph % (Auto) 30.7 (20-40) % [place] % (Auto) 5.6 (2-11) % Eos % (Auto) 1.9 (0-4) % Baso % (Auto) 0.6 (0-2) % Lymph # (Auto) 3.5 (1.2-4.9) X10*3/uL [place] # (Auto) 0.6 (0.1-1.2) X10*3/uL Eos # (Auto) 0.2 (0.0-0.4) X10*3/uL Baso # (Auto) 0.1 (0.0-0.2) X10*3/uL Abs Immat Gran (auto) 0.14 H (0.00-0.03) X10*3/uL Absolute Neuts (auto) 6.8 (2.0-8.3) x10*3/uL Absolute Nucleated RBC 0.000 (0.0-0.012) X10*3/uL Nucleated RBC % (auto) 0.0 (0.0-0.2) /100WBC Sodium 141 (135-145) mmol/L Potassium 3.7 (3.3-5.1) mmol/L Chloride 103 (96-108) mmol/L Carbon Dioxide 22 (22-29) mmol/L Anion Gap 20 (12-20) BUN 8 L (9-16) mg/dL Creatinine 1.07 (0.5-1.4) mg/dL Estim Creat Clear Calc 76.1 Estimated GFR 53 Random Glucose 127 H (60-115) mg/dL Lactic Acid 2.1 H* (0.5-2.0) mmol/L Calcium 9.7 (8.4-10.2) mg/dL Total Bilirubin 0.3 (0.0-1.0) mg/dL AST 27 (5-31) U/L ALT 24 (0-31) U/L Alkaline Phosphatase 90 (39-117) U/L Total Protein 8.0 (6.5-8.0) g/dL Albumin 4.2 (3.5-5.0) g/dL Discharge Plan Discharge Clinical Impression: Prepatellar bursitis, right knee, Cellulitis of right knee Patient Disposition: Admitted As Inpatient Print Language: French
--- NOTE | 2023-08-06 02:24 | P.HPHOSP_ITS ---
History of Present Illness Date of Service: 08/06/23 Chief Complaint: Knee infection This is a 58-year-old female with pertinent history of CHEYANNE/ohs on BiPAP at bedtime, hypothyroidism, mood disorder who presents to the emergency department for evaluation of knee pain and swelling. Patient injured right knee on 07/12 when she tripped and fell on her right knee. Patient has had pain, redness and swelling since the injury. Patient was seen by Orthopedic surgery and put on p.o. Bactrim for it. Patient did not complete her antibiotic course. She underwent x-ray and MRI as an outpatient of the right knee. Patient followed up with Orthopedic surgery on the day of presentation and was noticed to have progressively worsening of the redness and swelling. She was sent to the ER for IV antibiotics and possible admission. Patient denies fever, chills, chest discomfort, palpitations, shortness of breath, abdominal pain, changes in urinary or bowel habits. In the emergency department, patient was initiated on empiric IV antibiotics Review of Systems 2 Constitutional: Constitutional: Reports no additional constitutional complaints Cardiovascular: Cardiovascular: Reports no additional cardiovascular complaints Respiratory: Respiratory: Reports no additional respiratory complaints Gastrointestinal: Gastrointestinal: Reports no additional gastrointestinal complaints Genitourinary: Genitourinary: Reports no additional female genitourinary complaints Musculoskeletal: Musculoskeletal: Reports arthralgias and Reports joint swelling PMFSH Medical History Hypothyroidism No known health problems Pertinent family history: No family history of early CAD Social History Patient Tobacco Use Status: Former Tobacco user Advance Directives: No Advance Directives Information Provided: Yes Do you have a plan to hurt others: No 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 Allergies Allergy/AdvReac Type Severity Reaction Status Date / Time No Known Allergies Allergy Verified 08/06/23 00:13 Active Medications: Current Medications Piperacillin Sod/Tazobactam (Sod 4.5 gm/ Sodium Chloride) 100 mls @ 200 mls/hr IV ONCE ONE Stop: 08/06/23 02:34 Vancomycin HCl 1,500 mg/ (Sodium Chloride) 500 mls @ 333.333 mls/hr IV ONCE ONE Stop: 08/06/23 03:34 Sodium Chloride (Ns) 1,000 mls @ 999 mls/hr IV .Q1H1M ONE Stop: 08/06/23 03:14 Pharmacy Consult (Consult Rx Vancomycin Dosing) 1 each MISCELLANE DAILY PRN PRN Reason: Consult order Home Medications ?Medication ?Instructions ?Recorded ?Confirmed ?Last Taken ?Type levothyroxine 112 mcg capsule 112 mcg PO DAILY 10/28/20 03/05/23 Unknown History sertraline 100 mg tablet (Zoloft) 100 mg PO DAILY 10/28/20 03/05/23 Unknown History acamprosate 333 mg tablet,delayed 666 mg PO TID 03/05/23 03/05/23 Unknown History release bupropion HCl 150 mg 24 hr tablet, 150 mg PO QAM 03/05/23 03/05/23 Unknown History extended release Physical Exam 2 Vital Signs and Narrative: Vital Signs: Last Vital Signs Temp 97.9 F 08/06/23 00:09 Pulse 84 08/06/23 00:09 Resp 20 08/06/23 00:09 BP 111/56 L 08/06/23 00:09 Pulse Ox 96 08/06/23 00:09 O2 Del Method Room Air 08/06/23 00:09 BMI result Body Mass Index 50.5 Middle-aged female lying in bed in no distress Neck supple, no JVD Regular rate and rhythm, S1-S2 heard Regular breath sounds bilaterally, no wheezing or crackles appreciated Abdomen soft nontender, no guarding, no rigidity Patient is awake, alert and oriented to self, place, time and person ; no focal motor deficit Psych: Normal mood Right knee with warmth, erythema and swelling ; no pain with flexion or extension of knee Results Labs 08/06/23 02:37 08/06/23 00:19 Labs: Laboratory Results - last 24 hr 08/06/23 00:19 MCV 91.6 MCH 31.7 MCHC 34.6 RDW 13.5 Plt Count 314 D MPV 11.2 Immature Gran % (Auto) 1.2 H Neut % (Auto) 60.0 Lymph % (Auto) 30.7 [place] % (Auto) 5.6 Eos % (Auto) 1.9 Baso % (Auto) 0.6 Lymph # (Auto) 3.5 [place] # (Auto) 0.6 Eos # (Auto) 0.2 Baso # (Auto) 0.1 Abs Immat Gran (auto) 0.14 H Absolute Neuts (auto) 6.8 Absolute Nucleated RBC 0.000 Nucleated RBC % (auto) 0.0 Anion Gap 20 Estim Creat Clear Calc 76.1 Estimated GFR 53 Random Glucose 127 H Lactic Acid 2.1 H* Calcium 9.7 Total Bilirubin 0.3 AST 27 ALT 24 Alkaline Phosphatase 90 Total Protein 8.0 Albumin 4.2 Assessment and Plan (1) Cellulitis of right knee: Status: Acute Plan This is a 58-year-old female with pertinent history of CHEYANNE/ohs on BiPAP at bedtime, hypothyroidism, mood disorder who presents to the emergency department for evaluation of knee pain and swelling. #. Cellulitis of right knee with ?septic bursitis: Will admit patient and initiate empiric IV antibiotics as she failed p.o. outpatient antibiotics. Consulted Orthopedic surgery #. Hypothyroidism: On Synthroid #. Mood disorder: Continue home mood stabilizers Med rec pending DVT prophylaxis: Mechanical Full code Admit as inpatient and will require two night minimum hospital stay for IV antibiotics (as above), which is not possible in a lesser acute setting. Specialist consult pending Quality Stroke Does the patient have a stroke diagnosis?: No VTE Prior VTE?: No VTE Risk Level:: Medical - moderate - high VTE Device Contraindication: N/A - Device Ordered VTE Drug Contraindication: Treatment Not Indicated
[2023-08-06 02:27] LABS: Reflex Lactate? Lactic Acid Added
[2023-08-06 02:42] LABS: MANUAL DIFF FLAG NO
[2023-08-06 02:43] LABS: Basophils Absolute Auto 0.1 X10*3/uL (0.0-0.2); Basophils Percent Auto 0.8 % (0-2); Eosinophils Absolute Auto 0.3 X10*3/uL (0.0-0.4); Eosinophils Percent Auto 2.4 % (0-4); Hematocrit 38.3 % (37.0-47.0); Hemoglobin 13.4 g/dl (12.0-16.0); Imm Gran Pct Auto 0.9 % (0.0-0.4); Lymphocytes Absolute Auto 3.8 X10*3/uL (1.2-4.9); Mean Corpuscular Hemoglobin 32.1 pg (27.0-33.0); Mean Corpuscular Volume 91.6 fL (80.0-98.0); Mean Platelet Volume 11.2 fL (9.4-12.3); Monocytes Absolute Auto 0.7 X10*3/uL (0.1-1.2); Monocytes Percent Auto 6.1 % (2-11); Neutrophils Absolute Auto 6.8 x10*3/uL (2.0-8.3); Neutrophils Percent Auto 57.8 % (45-73); Platelet Count 299 X10*3/uL (160-400); Red Blood Count 4.18 X10*6/uL (4.20-5.50); Red Cell Distribution Width 13.5 % (11.0-16.0); White Blood Count 11.7 X10*3/uL (4.8-10.8)
[2023-08-06 02:56] LABS: ~Lactic Acid-LAB USE ONLY 1.6 mmol/L (0.5-2.0)
[2023-08-06 02:59] LABS: Anion Gap 19 (12-20); Blood Urea Nitrogen 10 mg/dL (9-16); Calcium 9.5 mg/dL (8.4-10.2); Carbon Dioxide 23 mmol/L (22-29); Chloride 103 mmol/L (96-108); Creatinine Clr Calc Pharmacy 58.1; Estimated Glomerular Filt Rate 39; Glucose Random 146 mg/dL (60-115); Potassium 3.7 mmol/L (3.3-5.1); Sodium 141 mmol/L (135-145)
[2023-08-06] MEDS: Piperacillin Sodium/Tazobactam 4.5 GM in 0.9 % Sodium Chloride 100 ML IV (03:27)
[2023-08-06] MEDS: 0.9 % Sodium Chloride 1,000 ML 999 ML IV (03:39)
[2023-08-06 03:47] VITALS: BP 107/57; PULSE 69; RESP 18; TEMP 36.8; O2SAT 94
[2023-08-06] MEDS: Acetaminophen 325 MG TABLET 650 MG PO ×2 (03:58→13:17)
--- NOTE | 2023-08-06 04:16 | PC.NURSE ---
Delay in administering meds due to caring for other critical patients. IV line place in right ac. PT reports binge drinking 2-3 times a week. CIWA 3. PT reports 5/10 headache requesting Tylenol. IV fluids running. PT bending arms periodically
[2023-08-06] MEDS: vancomycin/NS 2,000 MG/500 ML PLAST..BAG 250 MG IV (05:10)
[2023-08-06 06:26] VITALS: BP 131/71; PULSE 80; RESP 16; TEMP 36.7; O2SAT 98
--- NOTE | 2023-08-06 06:55 | PHA.PROG ---
Admission Date/Time: August 06, 2023 02:22 Indication: Skin Weight in k.274 kg Adjusted body weight in Kg: [place] body weight in Kg: Obesity Dosing Indication % IBW: Serum Creatinine - Last 168 Hours 08/06/23 08/06/23 00:19 02:37 Creatinine 1.07 1.40 Estimated CrCl and GFR - Last 168 Hours 08/06/23 08/06/23 00:19 02:37 Estim Creat Clear Calc 76.1 58.1 Estimated GFR 53 39 Vancomycin Loading Dose: 2000mg x 1 Current Vancomycin Dosing Regimen: 500mg Q12H Vancomycin Monitoring using AUC goal of 400 - 600 range with trough as surrogate marker: 429 mg/L Date and Time for next Vancomycin Level to be drawn: 08/06 @1500 Pharmacist Comments on Vancomycin Plan: Predicted trough of 14.7mg/L Vancomycin dosing will take advantage of [employer] as a clinical decision support tool that uses Bayesian modeling to calculate individual patient's pharmacokinetic parameters and forecast the patient's drug concentration time course with the target goal AUC 24 range of 400 - 600 mg/L/hr.
--- NOTE | 2023-08-06 07:39 | PC.NURSE ---
NELY PAUSED. IV IN DOMINANT ARM. PT EATING BREAKFAST. WILL RESUME AFTER BREAKFAST.
--- NOTE | 2023-08-06 09:04 | P.CONOP_ITS ---
History of Present Illness HPI Consult date: 08/06/23 Chief complaint: Knee Infection Narrative: 58 yo female admitted to the medical service with right knee cellulitis / possible serptic bursitis. On 07/13/23 she fell, injuring the right knee. She was seen by me in the clinic on 07/23/23, a right knee evacuation of hematoma was performed and she was placed on PO bactrim in the setting of possible cellulitis. Over the course of the treatment, she continued to experience swelling in the right knee and redness in the [place]. She was seen in the office on 07/06/23 and c/o worsening pain and redness in the knee. My recommendation was to visit the ED for administration of IV abx. She was admitted to the medical service and orthopedics was consulted for further recommendations. 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 Allergies Allergy/AdvReac Type Severity Reaction Status Date / Time No Known Allergies Allergy Verified 08/06/23 00:13 Active Medications: Current Medications Acetaminophen (Acetaminophen 325 Mg Tablet) 650 mg PO Q6H PRN PRN Reason: Pain, Mild (Pain Scale 1-3) Last Admin: 08/06/23 03:58 Dose: 650 mg Vancomycin HCl 500 mg/ Sodium (Chloride) 110 mls @ 110 mls/hr IV Q12H RUTHIE Melatonin (Melatonin 3 Mg Tablet) 6 mg PO BEDTIME PRN PRN Reason: Insomnia Ondansetron HCl (Ondansetron Hcl 4 Mg/2 Ml Vial) 4 mg IVPUSH Q8H PRN PRN Reason: Nausea and Vomiting Pharmacy Consult (Consult Rx Vancomycin Dosing) 1 each MISCELLANE DAILY PRN PRN Reason: Consult order Sodium Chloride (0.9 % Sodium Chloride Flush 3 Ml Syringe) 3 ml IVFLUSH QSHIFT [facility] Last Admin: 08/06/23 07:03 Dose: Not Given Home Medications ?Medication ?Instructions ?Recorded ?Confirmed ?Last Taken ?Type sertraline 100 mg tablet (Zoloft) 200 mg PO DAILY 10/28/20 08/06/23 08/05/23 History acamprosate 333 mg tablet,delayed 666 mg PO TID 03/05/23 08/06/23 08/05/23 History release albuterol sulfate 90 mcg/actuation 2 puff inhalation QID PRN 08/06/23 08/06/23 Unknown History aerosol inhaler Shortness Of Breath Or Wheezing fluticasone propionate 110 2 puff inhalation BID PRN 08/06/23 08/06/23 Unknown History mcg/actuation HFA aerosol inhaler Shortness Of Breath Or Wheezing folic acid 1 mg tablet 1 mg PO DAILY 08/06/23 08/06/23 08/05/23 History levothyroxine 100 mcg tablet 100 mcg PO DAILY 08/06/23 08/06/23 08/05/23 History losartan 100 1 tab PO DAILY 08/06/23 08/06/23 08/05/23 History mg-hydrochlorothiazide 25 mg tablet magnesium 250 mg tablet 250 mg PO DAILY 08/06/23 08/06/23 08/05/23 History thiamine HCl (vitamin B1) 100 mg 100 mg PO DAILY 08/06/23 08/06/23 08/05/23 History tablet triamcinolone acetonide 0.5 % 1 appl topical BID PRN eczema 08/06/23 08/06/23 Unknown History topical ointment Physical Exam 2 Vital Signs: Vital Signs: Last Vital Signs Temp 98.1 F 08/06/23 06:26 Pulse 80 08/06/23 06:26 Resp 16 08/06/23 06:26 BP 131/71 08/06/23 06:26 Pulse Ox 98 08/06/23 06:26 O2 Del Method Room Air 08/06/23 06:26 BMI result Body Mass Index 50.5 Extrem: Other: Right knee: Bursitis with erythema and boggy appearance. She has an abrasion over the anterior portion of the knee which is not actively draining. She has full ROM without pain. Calf supple, nontender. NVI. Results Labs 08/06/23 02:37 08/06/23 02:37 Labs: Abnormal lab results 08/06/23 08/06/23 Range/Units 00:19 02:37 WBC 11.3 H 11.7 H (4.8-10.8) X10*3/uL RBC 4.18 L (4.20-5.50) X10*6/uL Immature Gran % (Auto) 1.2 H 0.9 H (0.0-0.4) % Abs Immat Gran (auto) 0.14 H 0.10 H (0.00-0.03) X10*3/uL BUN 8 L (9-16) mg/dL Random Glucose 127 H 146 H (60-115) mg/dL Lactic Acid 2.1 H* (0.5-2.0) mmol/L H & H 08/06/23 08/06/23 Range/Units 00:19 02:37 Hgb 13.6 13.4 (12.0-16.0) g/dl Hct 39.3 38.3 (37.0-47.0) % All other labs normal. Assessment and Plan (1) Cellulitis of right knee: Status: Acute (2) Prepatellar bursitis, right knee: Status: Acute Plan Bursa asp of 20cc blood no purulance or cloudy appearance Failed PO abx continue IV abx compression ROM, wbat will cont to follow Procedures Date of Service Date of Service: 08/06/23 Joint Aspiration/Injection Joint Asp./Inject. 1: Time out performed: Yes Side of body: right Joint Aspirated/Injected: knee Skin prep: Povidone-Iodine1% Needle size used: 18G Fluid obtained: bloody Total fluid obtained (ml): 20 Patient tolerated procedure: well Complications: none
--- NOTE | 2023-08-06 10:22 | PHA.MEDREC ---
Pharmacy Consult ? Medication Reconciliation Pharmacy has completed the medication reconciliation. confirmed medications with patient, she brought a few of her bottles in. Her sertraline is prescribed as 1.5 tablets daily but patient reports that she takes 2 tablets daily. She reports she only took 7/10 days of the bactrim DS BID and her last dose was on the . She reports she last took all of her medications yesterday morning.
--- NOTE | 2023-08-06 11:24 | PM.EVENT ---
Event Note Date of Service: 08/06/23 Event Note: pt seen and examined. She was admitted this morning with knee pain and concern for knee infection vs septic bursititis. She is on IV Abx and is being evaluated by Ortho. She stable at this time. Med reconciliation has been completed Time Spent With Patient Time: Total time managing care of this patient today ____ minutes.
[2023-08-06] MEDS: hydroCHLOROthiazide 25 MG TABLET PO (13:16)
[2023-08-06] MEDS: Folic Acid 1 MG TABLET PO (13:16)
[2023-08-06] MEDS: Thiamine HCL 100 MG TABLET PO (13:17)
[2023-08-06] MEDS: Levothyroxine Sodium 100 MCG TABLET PO (13:17)
[2023-08-06] MEDS: Losartan Potassium 50 MG TABLET 100 MG PO (13:17)
[2023-08-06] MEDS: Sertraline HCL 100 MG TABLET 200 MG PO (14:04)
--- NOTE | 2023-08-06 14:45 | MHC.CM.PN ---
CM ATTEMPTED TO MEET WITH PT WHO WAS SLEEPING WITH CPAP ON AND DID NOT RESPOND TO NAME CM WILL REVISIT
[2023-08-06 15:11] VITALS: BP 122/47; PULSE 72; RESP 16; TEMP 36.7; O2SAT 95
[2023-08-06] MEDS: Acamprosate Calcium 333 MG TABLET.DR 666 MG PO ×2 (16:41→20:16)
[2023-08-06] MEDS: 0.9 % Sodium Chloride Flush 3 ML SYRINGE IVFLUSH (16:45)
[2023-08-06] MEDS: vancomycin HCL 500 MG in 0.9 % Sodium Chloride 100 ML 110 MG IV (18:34)
--- NOTE | 2023-08-06 19:55 | PC.NURSE ---
this rn assumed care of pt, pt resting in hospital bed, no acute distress noted. pt denies pain at this time. pt ambulatory at bedside.
--- NOTE | 2023-08-06 20:17 | PC.NURSE ---
pt medicated per mar, pt tolerated well with water.
[2023-08-06 20:29] VITALS: BP 130/67; PULSE 56; RESP 17; O2SAT 95
[2023-08-07] MEDS: 0.9 % Sodium Chloride Flush 3 ML SYRINGE IVFLUSH ×3 (00:58→19:32)
[2023-08-07 01:43] VITALS: BP 120/48; PULSE 59; RESP 16; O2SAT 94
[2023-08-07 05:52] VITALS: BP 103/50; PULSE 54; RESP 20; TEMP 36.5; O2SAT 96
[2023-08-07] MEDS: Levothyroxine Sodium 100 MCG TABLET PO (05:57)
[2023-08-07] MEDS: vancomycin HCL 500 MG in 0.9 % Sodium Chloride 100 ML 110 MG IV (05:57)
[2023-08-07 07:12] VITALS: BP 124/60; PULSE 56; RESP 16; TEMP 36.9; O2SAT 94
[2023-08-07 07:12] LABS: Creatinine Clr Calc Pharmacy 103.1; Estimated Glomerular Filt Rate > 60
[2023-08-07] MEDS: hydroCHLOROthiazide 25 MG TABLET PO (08:38)
[2023-08-07] MEDS: Folic Acid 1 MG TABLET PO (08:38)
[2023-08-07] MEDS: Magnesium Oxide 400 MG TABLET PO (08:38)
[2023-08-07] MEDS: Thiamine HCL 100 MG TABLET PO (08:38)
[2023-08-07] MEDS: Acamprosate Calcium 333 MG TABLET.DR 666 MG PO ×3 (08:39→21:08)
[2023-08-07] MEDS: Losartan Potassium 50 MG TABLET 100 MG PO (08:39)
[2023-08-07] MEDS: Sertraline HCL 100 MG TABLET 200 MG PO (08:39)
--- NOTE | 2023-08-07 09:27 | PC.NURSE ---
patient resting quietly in hospital bed, medicated per MAY. patient respirations equal and unlabored, skin dry and intact. patient right knee swollen and warm to the touch. VSS. patient is alert and oriented
--- NOTE | 2023-08-07 10:32 | P.CDIM_ITS ---
PROVIDER RESPONSE TEXT: To clarify, the appropriate diagnosis supported by the clinical indicators: Obesity Due to excess calories QUERY TEXT: PHYSICIAN'S DOCUMENTATION REQUEST Date of Query: 08/06/2023 12:19 PM EDT Patient Name: Naya Jung Admit Date: 08/06/2023 Dear Rafael Andres, A review of the medical record indicates additional documentation may be needed. Please review below and update the documentation accordingly. Clinical Indicators: BMI 50.2 129.274kg 5ft 3in If possible, please provide an associated diagnosis related to the abnormal BMI, such as: Obesity Due to excess calories Obesity Drug induced Obesity Due to other cause Specify the other cause Severe or Morbid Obesity With alveolar hypoventilation Severe or Morbid Obesity Without alveolar hypoventilation Other (explain) Clinically unable to determine (explain) Thank you, Yodit Casper, CCS, CDIS Use of terms such as suspected, likely, concern for, or probable (associated with a specific diagnosi s that is being evaluated, monitored, or treated as if it exists) are acceptable and can be coded in the inpatient se tting, when documented at the time of discharge. Please use your independent medical judgment in providing your response. THIS QUERY IS PART OF THE PERMANENT MEDICAL RECORD
[2023-08-07 12:58] VITALS: BMI 50.8
[2023-08-07 13:07] VITALS: BP 124/58; PULSE 61; RESP 12; TEMP 36.1; O2SAT 96
--- NOTE | 2023-08-07 14:42 | P.PNIM_ITS ---
Subjective Subjective Date of Service: 08/08/23 Interval History: f/u r knee infected bursitis that failed outpatient PO Abx knee remains red, tender Physical Exam 2 Vital Signs: Vital Signs: Last Vital Signs Temp 97.0 F 08/07/23 13:07 Pulse 61 08/07/23 13:07 Resp 12 08/07/23 13:07 BP 124/58 L 08/07/23 13:07 Pulse Ox 96 08/07/23 13:07 O2 Del Method Room Air 08/07/23 13:07 BMI result Body Mass Index 50.8 General: AO X 3, no acute distress Resp: CTA bilateral CVS: S1,S2,RRR GI: +BS, NT, no distention Skin: rigtht knee Neuro: motor grossly intact Psych: appropriate affect Extrem: Other: Right knee: Bursitis with erythema and boggy appearance. She has an abrasion over the anterior portion of the knee which is not actively draining. She has full ROM without pain. Calf supple, nontender. NVI. Objective Data Active Medications Acamprosate (Acamprosate Calcium 333 Mg Tablet.) 666 mg PO TID [facility] Last Admin: 08/07/23 08:39 Dose: 666 mg Documented By: BRAYDEN Acetaminophen (Acetaminophen 325 Mg Tablet) 650 mg PO Q6H PRN PRN Reason: Pain, Mild (Pain Scale 1-3) Last Admin: 08/06/23 13:17 Dose: 650 mg Documented By: PETE Albuterol Sulfate (Albuterol Sulfate 90 Mcg 8 Gm Inhaler) 2 puff INHALE QID PRN PRN Reason: Shortness Of Breath Or Wheezing Fluticasone Propionate (Fluticasone Propionate 100 Mcg Blst.W.Dev) 2 puff INHALE RBID PRN PRN Reason: Shortness Of Breath Or Wheezing Folic Acid (Folic Acid 1 Mg Tablet) 1 mg PO DAILY [facility] Last Admin: 08/07/23 08:38 Dose: 1 mg Documented By: BRAYDEN Hydrochlorothiazide (Hydrochlorothiazide 25 Mg Tablet) 25 mg PO DAILY [facility] Last Admin: 08/07/23 08:38 Dose: 25 mg Documented By: BRAYDEN Vancomycin HCl 500 mg/ Sodium (Chloride) 110 mls @ 110 mls/hr IV Q12H [facility] Last Infusion: 08/07/23 12:08 Dose: Infused Documented By: CARLOS Ibuprofen (Ibuprofen 800 Mg Tablet) 800 mg PO Q8H PRN PRN Reason: for pain Levothyroxine Sodium (Levothyroxine Sodium 100 Mcg Tablet) 100 mcg PO DAILY@0600 [facility] Last Admin: 08/07/23 05:57 Dose: 100 mcg Documented By: KRISTINA Lorazepam (Lorazepam 1 Mg Tablet) 1 mg PO Q6H PRN PRN Reason: anxiety/restlessness Losartan Potassium (Losartan Potassium 50 Mg Tablet) 100 mg PO DAILY [facility] Last Admin: 08/07/23 08:39 Dose: 100 mg Documented By: BRAYDEN Magnesium Oxide (Magnesium Oxide 400 Mg Tablet) 400 mg PO DAILY [facility] Last Admin: 08/07/23 08:38 Dose: 400 mg Documented By: BRAYDEN Melatonin (Melatonin 3 Mg Tablet) 6 mg PO BEDTIME PRN PRN Reason: Insomnia Ondansetron HCl (Ondansetron Hcl 4 Mg/2 Ml Vial) 4 mg IVPUSH Q8H PRN PRN Reason: Nausea and Vomiting Pharmacy Consult (Consult Rx Vancomycin Dosing) 1 each MISCELLANE DAILY PRN PRN Reason: Consult order Sertraline HCl (Sertraline Hcl 100 Mg Tablet) 200 mg PO DAILY [facility] Last Admin: 08/07/23 08:39 Dose: 200 mg Documented By: BRAYDEN Sodium Chloride (0.9 % Sodium Chloride Flush 3 Ml Syringe) 3 ml IVFLUSH QSHIFT [facility] Last Admin: 08/07/23 09:05 Dose: Not Given Documented By: BRAYDEN Non-Admin Reason: See Note Thiamine HCl (Thiamine Hcl 100 Mg Tablet) 100 mg PO DAILY [facility] Last Admin: 08/07/23 08:38 Dose: 100 mg Documented By: BRAYDEN Triamcinolone Acetonide (Triamcinolone Acet 0.5 % Oint 15 Gm Tube) 1 appl TOPICAL BID PRN PRN Reason: eczema Labs 08/06/23 02:37 08/08/23 05:35 Labs: Laboratory Results - last 24 hr 08/07/23 06:14 Estim Creat Clear Calc 103.1 Estimated GFR > 60 Microbiology Microbiology Results: Microbiology 08/06/23 02:12 Blood Culture - Preliminary Blood - Venous No growth after 24 hours. 08/06/23 00:19 Blood Culture - Preliminary Blood - Venous No growth after 24 hours. Assessment and Plan (1) Cellulitis of right knee: Status: Acute (2) Prepatellar bursitis, right knee: Status: Acute Plan 58-year-old female with pertinent history of CHEYANNE/ohs on BiPAP at bedtime, hypothyroidism, mood disorder who presents to the emergency department for evaluation of knee pain and swelling. Cellulitis of right knee with ?septic bursitis, failed outpatient Abx, cultures far negative, continue IV vanco, ortho following, get ID consult as well Hypothyroidism: On Synthroid Mood disorder: SSRI HTN--continue Losartan, HCTZ DVT prophylaxis: Lovenox Full code need for inpt: IV for infected bursitis that failed PO Abx Quality Stroke Does the patient have a stroke diagnosis?: No VTE Prior VTE?: No VTE Risk Level:: Medical - moderate - high VTE Device Contraindication: N/A - Device Ordered VTE Drug Contraindication: Treatment Not Indicated
--- NOTE | 2023-08-07 14:54 | PC.NURSE ---
Pt. stated that she fell in June 2023, refused bed and chair alarms, stated she's been walking with no issues. This Nurse provide education about safety, call nannette provided.
[2023-08-07 15:46] VITALS: BP 132/62; PULSE 64; RESP 12; TEMP 36.1; O2SAT 95
[2023-08-07 16:03] LABS: Vancomycin Trough 6.9 mcg/mL (10.0-20.0)
--- NOTE | 2023-08-07 16:12 | HE.PHANOTE ---
Re: Vanco Trough returned at 6.9, patient is subtherapeutic. Renal function has improved. Dose increased to 1000mg Q12H, with predicted AUC 426, and predicted trough 12.7. Next trough 08/07 @ 1500.
--- NOTE | 2023-08-07 16:12 | MHC.CM.PN ---
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
[2023-08-07] MEDS: Enoxaparin Sodium 40 MG/0.4 ML SYRINGE SUBCUT (16:14)
[2023-08-07] MEDS: vancomycin HCL 1,000 MG in 0.9 % Sodium Chloride 250 ML 270 MG IV (18:13)
[2023-08-07] MEDS: Ibuprofen 800 MG TABLET PO (19:20)
[2023-08-07 20:00] VITALS: BP 106/52; PULSE 65; RESP 18; TEMP 36.3; O2SAT 96
--- NOTE | 2023-08-07 20:56 | PM.PNORT ---
Subjective Subjective Date of Service: 08/07/23 Interval history: LOS 2 Right knee bursitis no overnight events continues with iv abx no concerns Physical Exam Vital Signs: Vital Signs: Last Vital Signs Temp 97.4 F 08/07/23 20:00 Pulse 65 08/07/23 20:00 Resp 18 08/07/23 20:00 BP 106/52 L 08/07/23 20:00 Pulse Ox 96 08/07/23 20:00 O2 Del Method Room Air 08/07/23 20:00 BMI result Body Mass Index 50.8 Extrem: Other: Right knee: Bursitis with erythema. She has an abrasion over the anterior portion of the knee which is not actively draining. She has full ROM without pain. Calf supple, nontender. NVI. Procedures Date of Service Date of Service: 08/07/23 Progress Note: A&P Assessment and plan (1) Cellulitis of right knee: Status: Acute (2) Prepatellar bursitis, right knee: Status: Acute Plan continue iv abx compression rom no surgical intervention Time Spent With Patient Time: Total time managing care of this patient today ____ minutes. Quality Stroke Does the patient have a stroke diagnosis?: No VTE Prior VTE?: No VTE Risk Level:: Medical - moderate - high VTE Device Contraindication: N/A - Device Ordered VTE Drug Contraindication: Treatment Not Indicated
--- NOTE | 2023-08-07 23:50 | W.PM.IDCN ---
History of Present Illness Data of Consult Service Date: 08/07/23 Requesting physician: Rafael Andres Primary Care Provider: MD JASPAL Malave Reason for consult: right knee cellulitis She presents with pain and continued swelling right knee. She had fallen on knee on 07/12 she said with her 280 pounds. She has taken Bactrim DS bid prescribed on 07/22 for 10 days but only took seven,not sure why. She has blood cultures negative and no further cultures seen. MRI shows torn medial meniscus as well as 12.1 cmfluid collection. She has no fever or chills. Review of Systems Review of Systems: Yes all other systems are reviewed and are negative [facility] Past Medical History Medical History Hypothyroidism No known health problems Family History Family history: reviewed and not pertinent Social History Social History Household Members: None Housing: Apartment Do you presently have visiting nurse or other home services: No Alcohol intake: current Alcohol intake frequency: 3 or more drinks per day Alcohol type: beer Comment: pt refuses all high risk interventions Patient Tobacco Use Status: Former Tobacco user service: No 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 Meds Allergies Allergy/AdvReac Type Severity Reaction Status Date / Time No Known Allergies Allergy Verified 08/06/23 00:13 Active Medications: Current Medications Acamprosate (Acamprosate Calcium 333 Mg Tablet.) 666 mg PO TID [facility] Last Admin: 08/07/23 21:08 Dose: 666 mg Acetaminophen (Acetaminophen 325 Mg Tablet) 650 mg PO Q6H PRN PRN Reason: Pain, Mild (Pain Scale 1-3) Last Admin: 08/06/23 13:17 Dose: 650 mg Albuterol Sulfate (Albuterol Sulfate 90 Mcg 8 Gm Inhaler) 2 puff INHALE QID PRN PRN Reason: Shortness Of Breath Or Wheezing Enoxaparin Sodium (Enoxaparin Sodium 40 Mg/0.4 Ml Syringe) 40 mg SUBCUT Q24H [facility] Last Admin: 08/07/23 16:14 Dose: 40 mg Fluticasone Propionate (Fluticasone Propionate 100 Mcg Blst.W.Dev) 2 puff INHALE RBID PRN PRN Reason: Shortness Of Breath Or Wheezing Folic Acid (Folic Acid 1 Mg Tablet) 1 mg PO DAILY [facility] Last Admin: 08/07/23 08:38 Dose: 1 mg Hydrochlorothiazide (Hydrochlorothiazide 25 Mg Tablet) 25 mg PO DAILY [facility] Last Admin: 08/07/23 08:38 Dose: 25 mg Vancomycin HCl 1,000 mg/ (Sodium Chloride) 270 mls @ 270 mls/hr IV Q12H [facility] Last Infusion: 08/07/23 19:31 Dose: Infused Ibuprofen (Ibuprofen 800 Mg Tablet) 800 mg PO Q8H PRN PRN Reason: for pain Last Admin: 08/07/23 19:20 Dose: 800 mg Levothyroxine Sodium (Levothyroxine Sodium 100 Mcg Tablet) 100 mcg PO DAILY@0600 [facility] Last Admin: 08/07/23 05:57 Dose: 100 mcg Lorazepam (Lorazepam 1 Mg Tablet) 1 mg PO Q6H PRN PRN Reason: anxiety/restlessness Losartan Potassium (Losartan Potassium 50 Mg Tablet) 100 mg PO DAILY [facility] Last Admin: 08/07/23 08:39 Dose: 100 mg Magnesium Oxide (Magnesium Oxide 400 Mg Tablet) 400 mg PO DAILY [facility] Last Admin: 08/07/23 08:38 Dose: 400 mg Melatonin (Melatonin 3 Mg Tablet) 6 mg PO BEDTIME PRN PRN Reason: Insomnia Ondansetron HCl (Ondansetron Hcl 4 Mg/2 Ml Vial) 4 mg IVPUSH Q8H PRN PRN Reason: Nausea and Vomiting Pharmacy Consult (Consult Rx Vancomycin Dosing) 1 each MISCELLANE DAILY PRN PRN Reason: Consult order Sertraline HCl (Sertraline Hcl 100 Mg Tablet) 200 mg PO DAILY [facility] Last Admin: 08/07/23 08:39 Dose: 200 mg Sodium Chloride (0.9 % Sodium Chloride Flush 3 Ml Syringe) 3 ml IVFLUSH QSHIFT [facility] Last Admin: 08/07/23 19:32 Dose: 3 ml Thiamine HCl (Thiamine Hcl 100 Mg Tablet) 100 mg PO DAILY [facility] Last Admin: 08/07/23 08:38 Dose: 100 mg Triamcinolone Acetonide (Triamcinolone Acet 0.5 % Oint 15 Gm Tube) 1 appl TOPICAL BID PRN PRN Reason: eczema Home Medications ?Medication ?Instructions ?Recorded ?Confirmed ?Last Taken ?Type sertraline 100 mg tablet (Zoloft) 200 mg PO DAILY 10/28/20 08/06/23 08/05/23 History acamprosate 333 mg tablet,delayed 666 mg PO TID 03/05/23 08/06/23 08/05/23 History release albuterol sulfate 90 mcg/actuation 2 puff inhalation QID PRN 08/06/23 08/06/23 Unknown History aerosol inhaler Shortness Of Breath Or Wheezing fluticasone propionate 110 2 puff inhalation BID PRN 08/06/23 08/06/23 Unknown History mcg/actuation HFA aerosol inhaler Shortness Of Breath Or Wheezing folic acid 1 mg tablet 1 mg PO DAILY 08/06/23 08/06/23 08/05/23 History levothyroxine 100 mcg tablet 100 mcg PO DAILY 08/06/23 08/06/23 08/05/23 History losartan 100 1 tab PO DAILY 08/06/23 08/06/23 08/05/23 History mg-hydrochlorothiazide 25 mg tablet magnesium 250 mg tablet 250 mg PO DAILY 08/06/23 08/06/23 08/05/23 History thiamine HCl (vitamin B1) 100 mg 100 mg PO DAILY 08/06/23 08/06/23 08/05/23 History tablet triamcinolone acetonide 0.5 % 1 appl topical BID PRN eczema 08/06/23 08/06/23 Unknown History topical ointment Physical Exam Vital Signs: Vital Signs: Last Vital Signs Temp 97.4 F 08/07/23 20:00 Pulse 65 08/07/23 20:00 Resp 18 08/07/23 20:00 BP 106/52 L 08/07/23 20:00 Pulse Ox 96 08/07/23 20:00 O2 Del Method Room Air 08/07/23 20:00 BMI result Body Mass Index 50.8 Const: General: cooperative HEENT: Head: Yes normal to inspection Face and sinus: Yes normal facial exam Mouth: Normal oral and palatal mucosa present Teeth and gingiva: dentition normal Eyes: General: appearance normal, both eyes and all related structures Pupils: Equal, round and reactive pupils present Resp: Effort & Inspection: normal respiratory effort Cardio: Rate: regular rate Rhythm: regular rhythm GI: Palpation (GI): Soft to palpation and nontender : General: Yes no CVA tenderness Back/Spine/Pelvis: Back: no CVA tenderness Skin: General skin exam: no rashes or lesions noted Neuro: General: moves all extremities Cranial nerves: Yes Equal, round and reactive pupils present Extrem: Other: right knee swelling and redness Psych: Appearance: grossly normal Results Labs 08/06/23 02:37 08/07/23 06:14 Labs: BMP 08/07/23 06:14 Creatinine 0.79 Microbiology Microbiology Results: Microbiology 08/06/23 02:12 Blood - Venous Blood Culture - Preliminary No growth after 24 hours. 08/06/23 00:19 Blood - Venous Blood Culture - Preliminary No growth after 24 hours. Assessment and Plan (1) Cellulitis of right knee: Status: Acute (2) Prepatellar bursitis, right knee: Status: Acute Plan She has possible staph or strep,less likely other organisms sucha s gram negative She has not had adequate trial of oral antibiotics and is not septic She may have hematoma and reports thought knee was aspirated but no cultures seen. There is still swelling on Vancomycin IV Vancomycin for now. Add Clindamycin 600 mg IV three times a day for 2-3 days. Await cultures if any
[2023-08-08] VITALS (7 sets, daily range): BP systolic 106–138; BP diastolic 53–68; PULSE 58–77; RESP 12–18; TEMP 36.3–36.6; O2SAT 95–97
[2023-08-08] MEDS: Clindamycin Phosphate/D5W 600 MG/50 ML PIGGYBACK 100 MG IV ×3 (00:32→16:36)
[2023-08-08] MEDS: vancomycin HCL 1,000 MG in 0.9 % Sodium Chloride 250 ML 270 MG IV ×2 (05:27→17:49)
[2023-08-08] MEDS: Levothyroxine Sodium 100 MCG TABLET PO (05:28)
[2023-08-08 06:18] LABS: Creatinine Clr Calc Pharmacy 103.5; Estimated Glomerular Filt Rate > 60
--- NOTE | 2023-08-08 07:44 | HO.PM.IMPN ---
Subjective Subjective Date of Service: 08/08/23 Interval History: f/u r knee infected bursitis that failed outpatient PO Abx knee remains red, tender, no noticeable change Physical Exam Vital Signs: Vital Signs: Last Vital Signs Temp 97.3 F 08/08/23 07:38 Pulse 58 08/08/23 07:38 Resp 12 08/08/23 07:38 BP 106/59 L 08/08/23 07:38 Pulse Ox 97 08/08/23 07:38 O2 Del Method Room Air 08/08/23 07:38 BMI result Body Mass Index 50.8 General: AO X 3, no acute distress Resp: CTA bilateral CVS: S1,S2,RRR GI: +BS, NT, no distention Skin: redness on knee essentially unchanged see pic from 08/06 Neuro: motor grossly intact Psych: appropriate affect Extrem: Other: Right knee: Bursitis with erythema and boggy appearance. She has an abrasion over the anterior portion of the knee which is not actively draining. She has full ROM without pain. Calf supple, nontender. NVI. Objective Data Active Medications Acamprosate (Acamprosate Calcium 333 Mg Tablet.) 666 mg PO TID [facility] Last Admin: 08/07/23 21:08 Dose: 666 mg Documented By: VIMALRISKostas Acetaminophen (Acetaminophen 325 Mg Tablet) 650 mg PO Q6H PRN PRN Reason: Pain, Mild (Pain Scale 1-3) Last Admin: 08/06/23 13:17 Dose: 650 mg Documented By: PETE Albuterol Sulfate (Albuterol Sulfate 90 Mcg 8 Gm Inhaler) 2 puff INHALE QID PRN PRN Reason: Shortness Of Breath Or Wheezing Enoxaparin Sodium (Enoxaparin Sodium 40 Mg/0.4 Ml Syringe) 40 mg SUBCUT Q24H [facility] Last Admin: 08/07/23 16:14 Dose: 40 mg Documented By: CONRAD Fluticasone Propionate (Fluticasone Propionate 100 Mcg Blst.W.Dev) 2 puff INHALE RBID PRN PRN Reason: Shortness Of Breath Or Wheezing Folic Acid (Folic Acid 1 Mg Tablet) 1 mg PO DAILY [facility] Last Admin: 08/07/23 08:38 Dose: 1 mg Documented By: BRAYDEN Hydrochlorothiazide (Hydrochlorothiazide 25 Mg Tablet) 25 mg PO DAILY [facility] Last Admin: 08/07/23 08:38 Dose: 25 mg Documented By: BRAYDEN Vancomycin HCl 1,000 mg/ (Sodium Chloride) 270 mls @ 270 mls/hr IV Q12H [facility] Last Infusion: 08/08/23 06:27 Dose: Infused Documented By: NADIA Clindamycin Phosphate (Cleocin) 600 mg in 50 mls @ 100 mls/hr IV 0000,0800,1600 [facility] Last Infusion: 08/08/23 01:04 Dose: Infused Documented By: NADIA Ibuprofen (Ibuprofen 800 Mg Tablet) 800 mg PO Q8H PRN PRN Reason: for pain Last Admin: 08/07/23 19:20 Dose: 800 mg Documented By: NADIA Levothyroxine Sodium (Levothyroxine Sodium 100 Mcg Tablet) 100 mcg PO DAILY@0600 [facility] Last Admin: 08/08/23 05:28 Dose: 100 mcg Documented By: NADIA Lorazepam (Lorazepam 1 Mg Tablet) 1 mg PO Q6H PRN PRN Reason: anxiety/restlessness Losartan Potassium (Losartan Potassium 50 Mg Tablet) 100 mg PO DAILY [facility] Last Admin: 08/07/23 08:39 Dose: 100 mg Documented By: BRAYDEN Magnesium Oxide (Magnesium Oxide 400 Mg Tablet) 400 mg PO DAILY [facility] Last Admin: 08/07/23 08:38 Dose: 400 mg Documented By: BRAYDEN Melatonin (Melatonin 3 Mg Tablet) 6 mg PO BEDTIME PRN PRN Reason: Insomnia Ondansetron HCl (Ondansetron Hcl 4 Mg/2 Ml Vial) 4 mg IVPUSH Q8H PRN PRN Reason: Nausea and Vomiting Pharmacy Consult (Consult Rx Vancomycin Dosing) 1 each MISCELLANE DAILY PRN PRN Reason: Consult order Sertraline HCl (Sertraline Hcl 100 Mg Tablet) 200 mg PO DAILY [facility] Last Admin: 08/07/23 08:39 Dose: 200 mg Documented By: BRAYDEN Sodium Chloride (0.9 % Sodium Chloride Flush 3 Ml Syringe) 3 ml IVFLUSH QSHIFT [facility] Last Admin: 08/07/23 19:32 Dose: 3 ml Documented By: CONRAD Thiamine HCl (Thiamine Hcl 100 Mg Tablet) 100 mg PO DAILY [facility] Last Admin: 08/07/23 08:38 Dose: 100 mg Documented By: BRAYDEN Triamcinolone Acetonide (Triamcinolone Acet 0.5 % Oint 15 Gm Tube) 1 appl TOPICAL BID PRN PRN Reason: eczema Labs 08/06/23 02:37 08/08/23 05:35 Labs: Laboratory Results - last 24 hr 08/07/23 08/08/23 15:14 05:35 Estim Creat Clear Calc 103.5 Estimated GFR > 60 Vancomycin Trough 6.9 L Microbiology Microbiology Results: Microbiology 08/06/23 02:12 Blood Culture - Preliminary Blood - Venous No growth after 48 hours. 08/06/23 00:19 Blood Culture - Preliminary Blood - Venous No growth after 48 hours. Assessment and Plan (1) Cellulitis of right knee: Status: Acute (2) Prepatellar bursitis, right knee: Status: Acute Plan 58-year-old female with pertinent history of CHEYANNE/ohs on BiPAP at bedtime, hypothyroidism, mood disorder who presents to the emergency department for evaluation of knee pain and swelling. Cellulitis of right knee with ?septic bursitis, failed outpatient Abx, cultures so far negative, continue IV vanco, ortho following, ID has added Clinda, may need open washing if not improving Hypothyroidism: Synthroid Mood disorder: SSRI HTN--continue Losartan, HCTZ DVT prophylaxis: Lovenox Full code need for inpt: IV for infected bursitis/Cellulitis that failed PO Abx Quality Stroke Does the patient have a stroke diagnosis?: No VTE Prior VTE?: No VTE Risk Level:: Medical - moderate - high VTE Device Contraindication: N/A - Device Ordered VTE Drug Contraindication: Treatment Not Indicated
[2023-08-08] MEDS: 0.9 % Sodium Chloride Flush 3 ML SYRINGE IVFLUSH ×2 (09:30→15:54)
[2023-08-08] MEDS: Sertraline HCL 100 MG TABLET 200 MG PO (09:39)
[2023-08-08] MEDS: Folic Acid 1 MG TABLET PO (09:47)
[2023-08-08] MEDS: Acamprosate Calcium 333 MG TABLET.DR 666 MG PO ×3 (09:47→20:51)
[2023-08-08] MEDS: Magnesium Oxide 400 MG TABLET PO (09:47)
[2023-08-08] MEDS: Thiamine HCL 100 MG TABLET PO (09:47)
--- NOTE | 2023-08-08 11:15 | PC.NURSE ---
Pt. agitated this morning since she couldn't connect to the zoom meeting due to internet connection. All efforts were made by nursing to connect without success.
--- NOTE | 2023-08-08 11:17 | PC.NURSE ---
Pt. refused all high fall interventions even though she stated that sometimes she falls at home. Education about safety provided, encouraged to use call brunson, call brunson within reach.
--- NOTE | 2023-08-08 11:35 | PM.PNORT ---
Subjective Subjective Date of Service: 08/08/23 Interval history: LOS 3 days Right knee bursitis no overnight events continues with iv abx Pt expresses frustration because, when laying down, her Rt knee appears to be less red and swollen, however when she sits up or ambulates the knee quickly swells again, and appears to become more red. Physical Exam Vital Signs: Vital Signs: Last Vital Signs Temp 97.7 F 08/08/23 09:40 Pulse 58 08/08/23 09:40 Resp 18 08/08/23 09:40 BP 111/53 L 08/08/23 09:47 Pulse Ox 95 08/08/23 09:40 O2 Del Method Room Air 08/08/23 09:40 BMI result Body Mass Index 50.8 Extrem: Other: Right knee: Bursitis with erythema. She has an abrasion over the anterior portion of the knee which is not actively draining. She has full ROM without pain. Calf supple, nontender. NVI. Procedures Date of Service Date of Service: 08/08/23 Progress Note: A&P Assessment and plan (1) Cellulitis of right knee: Status: Acute (2) Prepatellar bursitis, right knee: Status: Acute Plan continue iv abx (No cultures taken from aspiration, as fluid was bloody in nature without pus and not viscous) compression rom no surgical intervention at this time Continue to monitor response to abx change, to determine need for washout. ID Recommendations: IV Vancomycin for now. Add Clindamycin 600 mg IV three times a day for 2-3 days. Await cultures if any Time Spent With Patient Time: Total time managing care of this patient today ____ minutes. Quality Stroke Does the patient have a stroke diagnosis?: No VTE Prior VTE?: No VTE Risk Level:: Medical - moderate - high VTE Device Contraindication: N/A - Device Ordered VTE Drug Contraindication: Treatment Not Indicated
[2023-08-08] MEDS: Calcium Carbonate 750 MG TAB.CHEW PO ×2 (12:15→19:26)
[2023-08-08] MEDS: Enoxaparin Sodium 40 MG/0.4 ML SYRINGE SUBCUT (15:53)
[2023-08-08 16:11] LABS: Vancomycin Random 10.4 mcg/mL (15-20)
--- NOTE | 2023-08-08 16:16 | HE.PHANOTE ---
Re: Mike Patient currently has good renal function, and currently stable. Trough returned at 10.4, patient is therapeutic for indication. Continue current dose of 1,000 mg Q12H, with predicted AUC 431 mg/L and predicted trough 12.8 mg/L. Next random trough to be drawn 08/08 @ 1500.
--- NOTE | 2023-08-08 19:14 | PC.NURSE ---
Pt. requested some privacy and space on the 08 August, around 1100 for a special meeting she is expecting to have with her Therapist.
[2023-08-09] MEDS: 0.9 % Sodium Chloride Flush 3 ML SYRINGE IVFLUSH ×4 (00:19→23:23)
[2023-08-09] MEDS: Clindamycin Phosphate/D5W 600 MG/50 ML PIGGYBACK 100 MG IV ×4 (00:19→23:23)
[2023-08-09 03:30] VITALS: BP 131/62; PULSE 78; RESP 18; TEMP 36.2; O2SAT 98
[2023-08-09] MEDS: vancomycin HCL 1,000 MG in 0.9 % Sodium Chloride 250 ML 270 MG IV ×2 (05:51→16:33)
[2023-08-09] MEDS: Levothyroxine Sodium 100 MCG TABLET PO (05:52)
[2023-08-09 05:57] LABS: Creatinine Clr Calc Pharmacy 103.5; Estimated Glomerular Filt Rate > 60
[2023-08-09 07:07] VITALS: BP 133/66; PULSE 59; RESP 14; TEMP 36.7; O2SAT 94
[2023-08-09] MEDS: Ibuprofen 800 MG TABLET PO (07:42)
[2023-08-09 08:16] LABS: Anion Gap 14 (12-20); Carbon Dioxide 25 mmol/L (22-29); Chloride 105 mmol/L (96-108); Sodium 140 mmol/L (135-145)
--- NOTE | 2023-08-09 08:54 | HO.PM.IMPN ---
Subjective Subjective Date of Service: 08/09/23 Interval History: f/u r knee infected bursitis that failed outpatient PO Abx Still note pain and swelling, redness is slightly better Physical Exam Vital Signs: Vital Signs: Last Vital Signs Temp 98.1 F 08/09/23 07:07 Pulse 59 08/09/23 07:07 Resp 14 08/09/23 07:07 BP 133/66 08/09/23 07:07 Pulse Ox 94 08/09/23 07:07 O2 Del Method Room Air 08/09/23 07:07 BMI result Body Mass Index 50.8 General: AO X 3, no acute distress Resp: CTA bilateral CVS: S1,S2,RRR GI: +BS, NT, no distention Skin: right knee redness, swelling.. 08/06 08/08 Neuro: motor grossly intact Psych: appropriate affect Objective Data Active Medications Acamprosate (Acamprosate Calcium 333 Mg Tablet.) 666 mg PO TID [facility] Last Admin: 08/08/23 20:51 Dose: 666 mg Documented By: RAMONA Acetaminophen (Acetaminophen 325 Mg Tablet) 650 mg PO Q6H PRN PRN Reason: Pain, Mild (Pain Scale 1-3) Last Admin: 08/06/23 13:17 Dose: 650 mg Documented By: PETE Albuterol Sulfate (Albuterol Sulfate 90 Mcg 8 Gm Inhaler) 2 puff INHALE QID PRN PRN Reason: Shortness Of Breath Or Wheezing Calcium Carbonate (Calcium Carbonate 750 Mg Tab.Chew) 750 mg PO Q6H PRN PRN Reason: Dyspepsia Last Admin: 08/08/23 19:26 Dose: 750 mg Documented By: RAMONA Enoxaparin Sodium (Enoxaparin Sodium 40 Mg/0.4 Ml Syringe) 40 mg SUBCUT Q24H [facility] Last Admin: 08/08/23 15:53 Dose: 40 mg Documented By: CONRAD Fluticasone Propionate (Fluticasone Propionate 100 Mcg Blst.W.Dev) 2 puff INHALE RBID PRN PRN Reason: Shortness Of Breath Or Wheezing Folic Acid (Folic Acid 1 Mg Tablet) 1 mg PO DAILY [facility] Last Admin: 08/08/23 09:47 Dose: 1 mg Documented By: CONRAD Hydrochlorothiazide (Hydrochlorothiazide 25 Mg Tablet) 25 mg PO DAILY [facility] Last Admin: 08/08/23 09:46 Dose: Not Given Documented By: CONRAD Non-Admin Reason: Decreased Blood Pressure Vancomycin HCl 1,000 mg/ (Sodium Chloride) 270 mls @ 270 mls/hr IV Q12H [facility] Last Infusion: 08/09/23 06:55 Dose: Infused Documented By: RAMONA Clindamycin Phosphate (Cleocin) 600 mg in 50 mls @ 100 mls/hr IV 0000,0800,1600 [facility] Last Infusion: 08/09/23 08:19 Dose: Infused Documented By: ONEYDA Ibuprofen (Ibuprofen 800 Mg Tablet) 800 mg PO Q8H PRN PRN Reason: for pain Last Admin: 08/09/23 07:42 Dose: 800 mg Documented By: ONEYDA Levothyroxine Sodium (Levothyroxine Sodium 100 Mcg Tablet) 100 mcg PO DAILY@0600 [facility] Last Admin: 08/09/23 05:52 Dose: 100 mcg Documented By: RAMONA Lorazepam (Lorazepam 1 Mg Tablet) 1 mg PO Q6H PRN PRN Reason: anxiety/restlessness Losartan Potassium (Losartan Potassium 50 Mg Tablet) 100 mg PO DAILY [facility] Last Admin: 08/08/23 09:47 Dose: Not Given Documented By: CONRAD Non-Admin Reason: Decreased Blood Pressure Magnesium Oxide (Magnesium Oxide 400 Mg Tablet) 400 mg PO DAILY [facility] Last Admin: 08/08/23 09:47 Dose: 400 mg Documented By: CONRAD Melatonin (Melatonin 3 Mg Tablet) 6 mg PO BEDTIME PRN PRN Reason: Insomnia Ondansetron HCl (Ondansetron Hcl 4 Mg/2 Ml Vial) 4 mg IVPUSH Q8H PRN PRN Reason: Nausea and Vomiting Pharmacy Consult (Consult Rx Vancomycin Dosing) 1 each MISCELLANE DAILY PRN PRN Reason: Consult order Sertraline HCl (Sertraline Hcl 100 Mg Tablet) 200 mg PO DAILY [facility] Last Admin: 08/08/23 09:39 Dose: 200 mg Documented By: CONRAD Sodium Chloride (0.9 % Sodium Chloride Flush 3 Ml Syringe) 3 ml IVFLUSH QSHIFT [facility] Last Admin: 08/09/23 07:23 Dose: 3 ml Documented By: ONEYDA Thiamine HCl (Thiamine Hcl 100 Mg Tablet) 100 mg PO DAILY [facility] Last Admin: 08/08/23 09:47 Dose: 100 mg Documented By: CONRAD Triamcinolone Acetonide (Triamcinolone Acet 0.5 % Oint 15 Gm Tube) 1 appl TOPICAL BID PRN PRN Reason: eczema Labs 08/06/23 02:37 08/09/23 05:16 Labs: Laboratory Results - last 24 hr 08/08/23 08/09/23 15:29 05:16 Hold Purple Top SEE NOTE Anion Gap 14 Estim Creat Clear Calc 103.5 Estimated GFR > 60 Random Vancomycin 10.4 L Assessment and Plan (1) Cellulitis of right knee: Status: Acute (2) Prepatellar bursitis, right knee: Status: Acute Plan 58-year-old female with pertinent history of CHEYANNE/ohs on BiPAP at bedtime, hypothyroidism, mood disorder who presents to the emergency department for evaluation of knee pain and swelling. Cellulitis of right knee with ?septic bursitis, failed outpatient Abx, cultures so far negative continue IV vanco, ortho following, ID has added Clinda, may need open washing if not improving--overall seems better today Hypothyroidism: Synthroid Mood disorder: SSRI HTN--continue Losartan, HCTZ DVT prophylaxis: Lovenox Full code need for inpt: IV for infected bursitis/Cellulitis that failed PO Abx Quality Stroke Does the patient have a stroke diagnosis?: No VTE Prior VTE?: No VTE Risk Level:: Medical - moderate - high VTE Device Contraindication: N/A - Device Ordered VTE Drug Contraindication: Treatment Not Indicated
[2023-08-09] MEDS: Magnesium Oxide 400 MG TABLET PO (10:26)
[2023-08-09] MEDS: Folic Acid 1 MG TABLET PO (10:26)
[2023-08-09] MEDS: Acamprosate Calcium 333 MG TABLET.DR 666 MG PO ×3 (10:26→20:06)
[2023-08-09] MEDS: Sertraline HCL 100 MG TABLET 200 MG PO (10:26)
[2023-08-09] MEDS: Thiamine HCL 100 MG TABLET PO (10:27)
[2023-08-09 10:32] VITALS: PULSE 56
--- NOTE | 2023-08-09 10:32 | PC.NURSE ---
HR 56 Dr. Andres made aware
[2023-08-09 10:37] VITALS: BP 133/66
[2023-08-09] MEDS: Losartan Potassium 50 MG TABLET 100 MG PO (10:37)
[2023-08-09] MEDS: Calcium Carbonate 750 MG TAB.CHEW PO (10:37)
[2023-08-09] MEDS: hydroCHLOROthiazide 25 MG TABLET PO (10:37)
--- NOTE | 2023-08-09 14:36 | MHC.CM.PN ---
PER MD ROUNDS, PT EXPECTED TO BE READY TO DC TOMORROW DCP REMAINS HOME VIA SELF TRANSPORT
[2023-08-09] MEDS: Enoxaparin Sodium 40 MG/0.4 ML SYRINGE SUBCUT (15:14)
[2023-08-09 15:19] VITALS: BP 122/66; PULSE 62; RESP 18; TEMP 36.1; O2SAT 96
[2023-08-09 15:56] LABS: Vancomycin Random 11.7 mcg/mL (15-20)
--- NOTE | 2023-08-09 16:02 | HE.PHANOTE ---
RE: VANCO DOSING Random came back as 11.7 which is higher than predicted 10.6 (predicted AUC = 373). Continue with dose of 1000 mg q12h, next random is scheduled for 08/09 @1500.
[2023-08-09 19:00] VITALS: BP 105/50; PULSE 64; RESP 18; TEMP 36.1; O2SAT 94
[2023-08-10 04:00] VITALS: BP 104/51; PULSE 53; RESP 16; TEMP 36; O2SAT 94
[2023-08-10] MEDS: Levothyroxine Sodium 100 MCG TABLET PO (04:52)
[2023-08-10] MEDS: vancomycin HCL 1,000 MG in 0.9 % Sodium Chloride 250 ML 270 MG IV ×2 (04:52→17:46)
[2023-08-10] MEDS: Ibuprofen 800 MG TABLET PO ×2 (05:00→16:05)
[2023-08-10] MEDS: Calcium Carbonate 750 MG TAB.CHEW PO ×3 (05:00→17:46)
[2023-08-10 06:34] LABS: Creatinine Clr Calc Pharmacy 107.6; Estimated Glomerular Filt Rate > 60
[2023-08-10 07:14] VITALS: BP 115/58; PULSE 58; RESP 14; TEMP 36; O2SAT 97
[2023-08-10] MEDS: Magnesium Oxide 400 MG TABLET PO (08:13)
[2023-08-10] MEDS: 0.9 % Sodium Chloride Flush 3 ML SYRINGE IVFLUSH ×2 (08:13→16:00)
[2023-08-10 08:14] VITALS: BP 115/58
[2023-08-10] MEDS: Losartan Potassium 50 MG TABLET 100 MG PO (08:14)
[2023-08-10] MEDS: Sertraline HCL 100 MG TABLET 200 MG PO (08:14)
[2023-08-10] MEDS: Acamprosate Calcium 333 MG TABLET.DR 666 MG PO ×3 (08:14→20:47)
[2023-08-10] MEDS: hydroCHLOROthiazide 25 MG TABLET PO (08:14)
[2023-08-10] MEDS: Folic Acid 1 MG TABLET PO (08:14)
[2023-08-10] MEDS: Thiamine HCL 100 MG TABLET PO (08:15)
[2023-08-10] MEDS: Clindamycin Phosphate/D5W 600 MG/50 ML PIGGYBACK 50 MG IV (08:15)
[2023-08-10 08:34] LABS: Neutrophils Absolute Auto 5.1 x10*3/uL (2.0-8.3); White Blood Count 8.1 X10*3/uL (4.8-10.8)
--- NOTE | 2023-08-10 08:49 | PM.PNORT ---
Subjective Subjective Date of Service: 08/10/23 Interval history: LOS 4 days Right knee bursitis no overnight events continues with iv abx she states there is some improvement Physical Exam Vital Signs: Vital Signs: Last Vital Signs Temp 96.8 F 08/10/23 07:14 Pulse 58 08/10/23 07:14 Resp 14 08/10/23 07:14 BP 115/58 L 08/10/23 08:14 Pulse Ox 97 08/10/23 07:14 O2 Del Method Room Air 08/10/23 07:14 BMI result Body Mass Index 50.8 Extrem: Other: Right knee: Bursitis with erythema. She has an abrasion over the anterior portion of the knee which is not actively draining. She has full ROM without pain. Calf supple, nontender. NVI. Procedures Date of Service Date of Service: 08/10/23 Progress Note: A&P Assessment and plan (1) Cellulitis of right knee: Status: Acute (2) Prepatellar bursitis, right knee: Status: Acute Plan continue iv abx (No cultures taken from aspiration, as fluid was bloody in nature without pus and not viscous) rom no surgical intervention at this time- no indication this was septic as the asp was not pus and no change in sx with abx compression, rom ID Recommendations: IV Vancomycin for now. Add Clindamycin 600 mg IV three times a day for 2-3 days. Await cultures if any Time Spent With Patient Time: Total time managing care of this patient today ____ minutes. Quality Stroke Does the patient have a stroke diagnosis?: No VTE Prior VTE?: No VTE Risk Level:: Medical - moderate - high VTE Device Contraindication: N/A - Device Ordered VTE Drug Contraindication: Treatment Not Indicated
--- NOTE | 2023-08-10 09:52 | HO.WOUND ---
Wound Consult: Initial 58yr old Female? admitted to [facility] on 08/06/23 - See progress notes and H&P for detailed history.? Wound consult placed for Right Knee Wound.? Patient agreeable to assessment and photo documentation.? Patient is followed by Ortho team while inpatient and outpatient and was seen by ID while inpatient. See chart for details. There is a small 0.4cmx 0.5cm x 0.2cm wound to the knee based on patient report the wound has been there since injury which was on 07/13/23 and a fall to her knee. Lower Legs Right knee Etiology: ?Right Knee Known Hematoma Measurements: 0.4cm x .05cm x 0.2cm Wound Bed: dried partial thickness tissue loss Drainage / Odor: cursted to wound bed Edges: ? well defined Debra wound: Red Warm knee with superior area of soft Fluctuance noted Pain: painful at times per patient statement Goals of Treatment: ? Topical recommendations to cover open wound to allow for moist wound healing and to keep from microbial invasion and defer to Ortho team Providers aware of current warmth and erythema. Recommendations: 1. Right Knee - Cleanse with NS moist gauze, pat dry. Apply skin prep to periwound. Apply foam dressing and change every 3 days. Re-consult wound care Nurse for wound deterioration or wound changes.
--- NOTE | 2023-08-10 11:59 | P.PNIM_ITS ---
Subjective Subjective Date of Service: 08/10/23 Interval History: right knee infected bursitis that failed outpatient rx Review of Systems patient's pain and swelling, redness is slightly better no fever or chills Physical Exam 2 Vital Signs: Vital Signs: Last Vital Signs Temp 96.8 F 08/10/23 07:14 Pulse 58 08/10/23 07:14 Resp 14 08/10/23 07:14 BP 115/58 L 08/10/23 08:14 Pulse Ox 97 08/10/23 07:14 O2 Del Method Room Air 08/10/23 07:14 BMI result Body Mass Index 50.8 General: AO X 3, no acute distress Resp: CTA bilateral CVS: S1,S2,RRR GI: +BS, NT, no distention Skin: right knee redness, swelling. Objective Data Active Medications Acamprosate (Acamprosate Calcium 333 Mg Tablet.) 666 mg PO TID [facility] Last Admin: 08/10/23 08:14 Dose: 666 mg Documented By: CARLA Acetaminophen (Acetaminophen 325 Mg Tablet) 650 mg PO Q6H PRN PRN Reason: Pain, Mild (Pain Scale 1-3) Last Admin: 08/06/23 13:17 Dose: 650 mg Documented By: PETE Albuterol Sulfate (Albuterol Sulfate 90 Mcg 8 Gm Inhaler) 2 puff INHALE QID PRN PRN Reason: Shortness Of Breath Or Wheezing Calcium Carbonate (Calcium Carbonate 750 Mg Tab.Chew) 750 mg PO Q6H PRN PRN Reason: Dyspepsia Last Admin: 08/10/23 11:28 Dose: 750 mg Documented By: CARLA Enoxaparin Sodium (Enoxaparin Sodium 40 Mg/0.4 Ml Syringe) 40 mg SUBCUT Q24H [facility] Last Admin: 08/09/23 15:14 Dose: 40 mg Documented By: ONEYDA Fluticasone Propionate (Fluticasone Propionate 100 Mcg Blst.W.Dev) 2 puff INHALE RBID PRN PRN Reason: Shortness Of Breath Or Wheezing Folic Acid (Folic Acid 1 Mg Tablet) 1 mg PO DAILY [facility] Last Admin: 08/10/23 08:14 Dose: 1 mg Documented By: CARLA Hydrochlorothiazide (Hydrochlorothiazide 25 Mg Tablet) 25 mg PO DAILY [facility] Last Admin: 08/10/23 08:14 Dose: 25 mg Documented By: CARLA Vancomycin HCl 1,000 mg/ (Sodium Chloride) 270 mls @ 270 mls/hr IV Q12H [facility] Last Infusion: 08/10/23 05:54 Dose: Infused Documented By: DILAN Clindamycin Phosphate (Cleocin) 600 mg in 50 mls @ 100 mls/hr IV 0000,0800,1600 [facility] Last Infusion: 08/10/23 08:46 Dose: Infused Documented By: CARLA Ibuprofen (Ibuprofen 800 Mg Tablet) 800 mg PO Q8H PRN PRN Reason: for pain Last Admin: 08/10/23 05:00 Dose: 800 mg Documented By: DILAN Levothyroxine Sodium (Levothyroxine Sodium 100 Mcg Tablet) 100 mcg PO DAILY@0600 [facility] Last Admin: 08/10/23 04:52 Dose: 100 mcg Documented By: DILAN Lorazepam (Lorazepam 1 Mg Tablet) 1 mg PO Q6H PRN PRN Reason: anxiety/restlessness Losartan Potassium (Losartan Potassium 50 Mg Tablet) 100 mg PO DAILY [facility] Last Admin: 08/10/23 08:14 Dose: 100 mg Documented By: CARLA Magnesium Oxide (Magnesium Oxide 400 Mg Tablet) 400 mg PO DAILY [facility] Last Admin: 08/10/23 08:13 Dose: 400 mg Documented By: CARLA Melatonin (Melatonin 3 Mg Tablet) 6 mg PO BEDTIME PRN PRN Reason: Insomnia Ondansetron HCl (Ondansetron Hcl 4 Mg/2 Ml Vial) 4 mg IVPUSH Q8H PRN PRN Reason: Nausea and Vomiting Pharmacy Consult (Consult Rx Vancomycin Dosing) 1 each MISCELLANE DAILY PRN PRN Reason: Consult order Sertraline HCl (Sertraline Hcl 100 Mg Tablet) 200 mg PO DAILY [facility] Last Admin: 08/10/23 08:14 Dose: 200 mg Documented By: CARLA Sodium Chloride (0.9 % Sodium Chloride Flush 3 Ml Syringe) 3 ml IVFLUSH QSHIFT [facility] Last Admin: 08/10/23 08:13 Dose: 3 ml Documented By: CARLA Thiamine HCl (Thiamine Hcl 100 Mg Tablet) 100 mg PO DAILY [facility] Last Admin: 08/10/23 08:15 Dose: 100 mg Documented By: CARLA Triamcinolone Acetonide (Triamcinolone Acet 0.5 % Oint 15 Gm Tube) 1 appl TOPICAL BID PRN PRN Reason: eczema Labs 08/10/23 05:52 08/10/23 05:52 Labs: Laboratory Results - last 24 hr 08/09/23 08/10/23 15:13 05:52 Absolute Neuts (auto) 5.1 Hold Purple Top SEE NOTE Estim Creat Clear Calc 107.6 Estimated GFR > 60 Random Vancomycin 11.7 L Assessment and Plan (1) Cellulitis of right knee: Status: Acute (2) Prepatellar bursitis, right knee: Status: Acute Plan 58-year-old female with pertinent history of CHEYANNE/ohs on BiPAP at bedtime, hypothyroidism, mood disorder who presents to the emergency department for evaluation of knee pain and swelling. Cellulitis of right knee with ?septic bursitis, failed outpatient Abx, cultures so far negative continue IV vanco, ortho following, ID has added Clinda(08/07). Hypothyroidism: Synthroid. Mood disorder: SSRI HTN--continue Losartan, HCTZ. Morbid obesity-encouraged to lose weight and cut down calories. DVT prophylaxis: Lovenox. Full code need for inpt: need IVantibiotics for infected bursitis/Cellulitis that failed PO Abx,surgery follow up Quality Stroke Does the patient have a stroke diagnosis?: No VTE Prior VTE?: No VTE Risk Level:: Medical - moderate - high VTE Device Contraindication: N/A - Device Ordered VTE Drug Contraindication: Treatment Not Indicated
--- NOTE | 2023-08-10 13:41 | P.PNID_ITS ---
Subjective Subjective Date of Service: 08/10/23 Critical Care Time (minutes): 15 Comment: knee somewhat red,less now Objective Data Labs 08/10/23 05:52 08/10/23 05:52 Labs: Laboratory Results - last 24 hr 08/09/23 08/10/23 15:13 05:52 WBC 8.1 Absolute Neuts (auto) 5.1 Hold Purple Top SEE NOTE Creatinine 0.76 Estim Creat Clear Calc 107.6 Estimated GFR > 60 Random Vancomycin 11.7 L Microbiology Microbiology Results: Microbiology 08/06/23 02:12 Blood - Venous Blood Culture - Preliminary No growth after 48 hours. 08/06/23 00:19 Blood - Venous Blood Culture - Preliminary No growth after 48 hours. Physical Exam 2 Vital Signs: Vital Signs: Last Vital Signs Temp 96.8 F 08/10/23 07:14 Pulse 58 08/10/23 07:14 Resp 14 08/10/23 07:14 BP 115/58 L 08/10/23 08:14 Pulse Ox 97 08/10/23 07:14 O2 Del Method Room Air 08/10/23 07:14 BMI result Body Mass Index 50.8 Const: General: cooperative HEENT: Head: Yes normal to inspection Face and sinus: Yes normal facial exam Mouth: Normal oral and palatal mucosa present Teeth and gingiva: d entition normal Eyes: General: appearance normal, both eyes and all related structures P upils: Equal, round and reactive pupils present Resp: Effort & Inspection: normal respiratory effort Cardio: Rate: regular rate Rhythm: regular rhythm GI: Palpation (GI): Soft to palpation and nontender : General: Yes no CVA tenderness Back/Spine/Pelvis: Back: no CVA tenderness Skin: General skin exam: no rashes or lesions noted Neuro: General: moves all extremities Cranial nerves: Yes Equal, round and reactive pupils present Extrem: General: Yes normal to inspection Psych: Appearance: grossly normal Assessment and Plan Assessment and plan (1) Cellulitis of right knee: Status: Acute (2) Prepatellar bursitis, right knee: Status: Acute Assessment and Plan: would give po Clindamycin for five days,300 mg tid follow Orthopedics Time Spent With Patient Time: Total time managing care of this patient today ____ minutes.
[2023-08-10] MEDS: Enoxaparin Sodium 40 MG/0.4 ML SYRINGE SUBCUT (14:31)
--- NOTE | 2023-08-10 15:04 | MHC.CM.PN ---
pt not medically ready for dc plan remains home no services
[2023-08-10 15:27] VITALS: BP 139/59; PULSE 64; RESP 16; TEMP 36.6; O2SAT 96
[2023-08-10 15:42] LABS: Vancomycin Random 11.1 mcg/mL (15-20)
[2023-08-10] MEDS: Clindamycin Phosphate/D5W 600 MG/50 ML PIGGYBACK 100 MG IV (16:00)
[2023-08-10 19:16] VITALS: BP 96/50; PULSE 56; RESP 18; TEMP 36.2; O2SAT 96
--- NOTE | 2023-08-10 23:58 | PC.NURSE ---
patient refusing high fall risk precautions
[2023-08-11] MEDS: 0.9 % Sodium Chloride Flush 3 ML SYRINGE IVFLUSH ×2 (00:04→07:35)
[2023-08-11 03:19] VITALS: BP 98/56; PULSE 55; RESP 18; TEMP 36.4; O2SAT 95
[2023-08-11] MEDS: vancomycin HCL 1,000 MG in 0.9 % Sodium Chloride 250 ML 270 MG IV (05:25)
[2023-08-11] MEDS: Levothyroxine Sodium 100 MCG TABLET PO (05:28)
[2023-08-11 06:36] LABS: Creatinine Clr Calc Pharmacy 99.8; Estimated Glomerular Filt Rate > 60
[2023-08-11 07:26] VITALS: BP 113/58; PULSE 56; RESP 18; TEMP 36.1; O2SAT 95
[2023-08-11] MEDS: Omeprazole 20 MG CAPSULE.DR PO (07:35)
[2023-08-11 07:36] VITALS: BP 113/58
[2023-08-11] MEDS: hydroCHLOROthiazide 25 MG TABLET PO (07:36)
[2023-08-11] MEDS: Thiamine HCL 100 MG TABLET PO (07:36)
[2023-08-11] MEDS: Acetaminophen 325 MG TABLET 975 MG PO (07:36)
[2023-08-11] MEDS: Sertraline HCL 100 MG TABLET 200 MG PO (07:36)
[2023-08-11] MEDS: Magnesium Oxide 400 MG TABLET PO (07:37)
[2023-08-11] MEDS: Clindamycin Phosphate/D5W 600 MG/50 ML PIGGYBACK 100 MG IV ×2 (07:37)
[2023-08-11] MEDS: Acamprosate Calcium 333 MG TABLET.DR 666 MG PO ×2 (07:37→14:25)
--- NOTE | 2023-08-11 14:27 | P.DS_ITS ---
DS: Providers Provider Date of Service: 08/11/23 Date of admission: 08/06/23 02:22 Date of discharge: 08/11/23 Primary care physician: Lorena Delgado MD Consults: 08/06/23 02:55 Consult to Orthopedics Routine Consulting Provider[place] [facility] Reason for consultation: prepatellar bursitis 08/07/23 13:02 Consult to Wound Care Routine Reason for consultation: Right Knee Wound 08/07/23 14:42 Consult to Infectious Diseases Routine Consulting Provider[place] [facility] Reason for consultation: wound infection Attending physician on discharge: Maryann Green Discharging clinician: Maryann Green DS: Diagnosis Discharge Diagnosis (1) Cellulitis of right knee: Status: Acute (2) Prepatellar bursitis, right knee: Status: Acute DS: Summary Hospital Course Hospital Course: 58-year-old female with pertinent history of CHEYANNE/ohs on BiPAP at bedtime, hy pothyroidism, mood disorder who presents to the emergency department for evaluation of knee pain and swelling. Patient injured right knee on 07/12 when she tripped and fell on her right knee. Patient has had pain, redness and swelling since the injury. Patient was seen by Orthopedic surgery and put on p.o. Bactrim for it. Patient did not complete her antibiotic course. She underwent x-ray and MRI as an outpatient of the right knee. Patient followed up with Orthopedic surgery on the day of presentation and was noticed to have progressively worsening of the redness and swelling. She was sent to the ER for IV antibiotics and possible admission. Patient denies fever, chills, chest discomfort, palpitations, shortness of breath, abdominal pain, changes in urinary or bowel habits. In the emergency department, patient was initiated on empiric IV antibiotics. Hospital course: Patient was admitted for right knee pain and swelling-possible likely right knee cellulitis/prepetallar bursitis failed outpatient antibiotics :found to have leucocytosis,started on iv antibiotics a,blood cultures sent ,patient seen by orthopedics and infectious disease : Recommended to continue antibiotics, no orthopedic intervention . With above supportive care patient knee swelling and pain is improving, patient was switched to p.o. antibiotics upon discharge, blood culture negative, leukocytosis resolved. plan: Complete clindamycin 300 mg p.o. t.i.d. for 5 days. Follow-up with orthopedics outpatient. Above management discussed with the patient in detail length she understand and in agreement with the plan, time spent 40 minute. Time Attestation Total time managing care of this patient today: 40 mintues. Discharge Coordination Time (in mins): 40 min Quality: Safe Use of Opioids Does Pt have an Active Cancer Diagnosis on the Problem List?: No Quality: Stroke Does the patient have a stroke diagnosis?: No Physical Exam Vital Signs: Vital Signs: Last Vital Signs Temp 97 F 08/11/23 07:26 Pulse 56 08/11/23 07:26 Resp 18 08/11/23 07:26 BP 113/58 L 08/11/23 07:36 Pulse Ox 95 08/11/23 07:26 O2 Del Method Room Air 08/11/23 07:26 BMI result Body Mass Index 50.8 General: AO X 3, no acute distress Resp: CTA bilateral CVS: S1,S2,RRR GI: +BS, NT, no distention Skin: right knee redness, swelling- seems to be improved signifiacntly,full ROM without pain. DS: Data Data Completed and Pending Labs on day of discharge: Laboratory Results - last 24 hr 08/10/23 08/11/23 15:16 06:01 Creatinine 0.82 Estim Creat Clear Calc 99.8 Estimated GFR > 60 Random Vancomycin 11.1 L Discharge Plan Discharge Anticipated Discharge Date/Time: 08/11/23 14:15 Patient Disposition: Home, Self-Care Discharge Diagnosis: right knee cellulitis Referrals: Lorena Delgado MD [Primary Care Provider] - 1 Week Celso Darby PA-C [Physician Radiologic Technologist] - 1 Week Discharge Medications: New clindamycin HCl 300 mg Capsule 300 mg PO TID@0000,0800,1600 Qty: 15 0RF Continued ibuprofen 800 mg tablet 800 mg PO Q8H PRN (Reason: for pain) Qty: 90 3RF thiamine HCl (vitamin B1) 100 mg tablet 100 mg PO DAILY triamcinolone acetonide 0.5 % ointment 1 appl topical BID PRN (Reason: eczema) levothyroxine 100 mcg tablet 100 mcg PO DAILY losartan-hydrochlorothiazide 100-25 mg tablet 1 tab PO DAILY folic acid 1 mg tablet 1 mg PO DAILY magnesium 250 mg Tablet 250 mg PO DAILY albuterol sulfate 90 mcg/actuation HFA aerosol inhaler 2 puff inhalation QID PRN (Reason: Shortness Of Breath Or Wheezing) fluticasone propionate 110 mcg/actuation HFA aerosol inhaler 2 puff INHALATION BID PRN (Reason: Shortness Of Breath Or Wheezing) sertraline [Zoloft] 100 mg tablet 200 mg PO DAILY acamprosate 333 mg tablet,delayed release (DR/EC) 666 mg PO TID (DME) Kneeling Scooter See Rx Instructions .ROUTE .MEDSUPPLY Qty: 1 0RF Rx Instructions: As directed (DME) knee high compression stocking See Rx Instructions .ROUTE .MEDSUPPLY Qty: 1 0RF Rx Instructions: 30/40mmHG Discharge Orders: Discharge Order (Routine); Ordered 08/11/23 Ordered By: Maryann Green Diet: Advance to usual diet Activity on Discharge: As tolerated Stand Alone Forms: Patient Portal Discharge page, Work/School Release Print Language: Serbian Care Plan Goals: Patient was admitted for right knee pain and swelling-possible likely right knee cellulitis/prepetallar bursitis failed outpatient antibiotics :found to have leucocytosis,started on iv antibiotics a,blood cultures sent ,patient seen by orthopedics and infectious disease : Recommended to continue antibiotics, no orthopedic intervention . With above supportive care patient knee swelling and pain is improving, patient was switched to p.o. antibiotics upon discharge, blood culture negative, leukocytosis resolved. Complete clindamycin 300 mg p.o. t.i.d. for 5 days. Follow-up with orthopedics outpatient. Health Concerns: as above. Plan of Treatment: as above. Assessment: as above.
--- NOTE | 2023-08-11 14:35 | MHC.CM.PN ---
pt dcd home self care
[2023-08-11] MEDS: Clindamycin HCL 300 MG CAPSULE PO (15:10)
== END 2023-08-11 15:21 | disposition home or self-care (01) | DRG 558 ==
LOC: HO.ED 08-06 02:19 → HO.EDOVER 08-06 02:25 → HO.S3 08-07 12:05
PROVIDERS: Internal Medicine; Admitting Provider Student in an Organized Health Care Education/Training Program; Emergency Provider Emergency Medicine; PCP Internal Medicine; Visit Provider Internal Medicine
DX: M71.161 Other infective bursitis, right knee (principal); L03.115 Cellulitis of right lower limb; E66.2 Morbid (severe) obesity with alveolar hypoventilation; Z68.43 Body mass index [BMI] 50.0-59.9, adult; E03.9 Hypothyroidism, unspecified; Z71.3 Dietary counseling and surveillance; I10 Essential (primary) hypertension; F39 Unspecified mood [affective] disorder; Z87.891 Personal history of nicotine dependence; Z79.899 Other long term (current) drug therapy
CPT/HCPCS: 36415; 80048; 80051; 80053; 80202; 82565; 83605; 85025; 85048; 87040; 99285; J0736; J1650; J2543; J3370

== ENCOUNTER → 2023-08-06 02:22 | Outpatient (BNV) | payer OTHER, SELFPAY | PROVIDERS: Admitting Provider Student in an Organized Health Care Education/Training Program; Emergency Provider Emergency Medicine; PCP Internal Medicine; Visit Provider Internal Medicine | DX: L03.115 Cellulitis of right lower limb (principal); M70.41 Prepatellar bursitis, right knee | CPT/HCPCS: 99222; 99232 ==

== ENCOUNTER → 2023-08-06 02:22 | Outpatient (BNV) | payer OTHER, SELFPAY | PROVIDERS: Admitting Provider Student in an Organized Health Care Education/Training Program; Emergency Provider Emergency Medicine; PCP Internal Medicine; Visit Provider Physician Assistant | DX: L03.115 Cellulitis of right lower limb (principal); M70.41 Prepatellar bursitis, right knee | CPT/HCPCS: 20610; 99222; 99232 ==

== ENCOUNTER → 2023-08-06 02:22 | Outpatient (BNV) | payer OTHER, SELFPAY | PROVIDERS: Admitting Provider Student in an Organized Health Care Education/Training Program; Emergency Provider Emergency Medicine; PCP Internal Medicine; Visit Provider Student in an Organized Health Care Education/Training Program | DX: L03.115 Cellulitis of right lower limb (principal); M70.41 Prepatellar bursitis, right knee | CPT/HCPCS: 99222; 99232; 99239; 99499 ==

== ENCOUNTER 2023-08-19 11:21 | Outpatient (AMB) | payer OTHER, SELFPAY ==
--- NOTE | 2023-08-19 11:39 | A.OFFVIS_ITS ---
Intake Visit Reasons: OV - Right Knee-follow up Intake Note: Naya a 58 year old female who presents today for a follow up of her right knee s/p WC injury to her left knee, DOI 07/13/23. Patient reports she continues to have swelling and redness. States wound is very itchy. She has just completed another her antibiotics, states due to the amount of antibiotics were prescribed she has no developed a yeast infection. Allergies No Known Allergies Allergy (Verified 08/19/23 11:43) HPI HPI OV - Right Knee-follow up: Details: 58-year-old female who returns to the office today for a follow-up of right knee pain s/p work injury, 07/13/23. She states she has improvement in her ambulation however she continues to have redness and swelling in her knee as well as itchiness in her wound. She also experiences a burning sensation in her knee which lasts for 10 seconds. She has completed with her antibiotics with benefits. She is doing well otherwise and has no other concerns today. 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 She has an abrasion over the anterior portion of the knee which is not actively draining and healing well. She has full ROM without pain. Calf supple, nontender. NVI. Assessment & Plan Assessment & Plan (1) Prepatellar bursitis, right knee: Code(s): M70.41 - Prepatellar bursitis, right knee Category: Medical Plan A referral to physical therapy was ordered to work on ROM and strengthening. She will continue the use of alyson wrap for compression. She was also given a course of Celebrex to help with her inflammation. She was given a work note to return back to work 08/20/23 without restrictions. She will see me back 3 weeks, sooner if needed. Orders: Orders PT Evaluation and Treatment Today M70.41 - Prepatellar bursitis, right knee Medications: New celecoxib (Celebrex) 200 mg PO BID 60 caps 3RF 30 days Patient Instructions: Scribed for Celso Darby PA-C, by Steve Lloyd medical esthetician, on 08/19/2023 at 11:15 AM EST.? I, Celso Darby PA-C, have personally reviewed and agree with the information entered by the scribe. Coding Level of Care Code Est Pt Level 3 (14327) Diagnoses Prepatellar bursitis, right knee M70.41
== END 2023-08-19 11:53 | disposition home or self-care (01) ==
LOC: HO.HOS 11:21
PROVIDERS: PCP Internal Medicine; Visit Provider Physician Assistant
DX: M70.41 Prepatellar bursitis, right knee (principal)
CPT/HCPCS: 99214

== ENCOUNTER → 2023-08-19 11:21 | Outpatient (BNVA) | payer OTHER, SELFPAY | PROVIDERS: PCP Internal Medicine; Visit Provider Physician Assistant | DX: M70.41 Prepatellar bursitis, right knee (principal) | CPT/HCPCS: 99212 ==

== ENCOUNTER 2023-09-20 11:03 | Outpatient (AMB) | payer OTHER, SELFPAY ==
--- NOTE | 2023-09-20 11:21 | A.OFFVIS_ITS ---
Intake Visit Reasons: O/V Prepatellar bursitis, right knee Intake Note: Naya a 58 year old female who presents today for a follow up of her right knee s/p WC injury to her left knee, DOI 07/13/23. Patient reports she is doing well, states improvement since her last visit. She mentions having episodes of pain and had missed few days of work. Allergies No Known Allergies Allergy (Verified 09/20/23 11:24) HPI HPI O/V Prepatellar bursitis, right knee: Details: 58-year-old female who returns to the office today for a follow-up of right knee. She states she has no pain however she does experience some numbness and itchiness in her knee. She is doing well overall and has no concerns today. 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 She has full ROM without pain. Calf supple, nontender. NVI. Assessment & Plan Assessment & Plan (1) Prepatellar bursitis, right knee: Code(s): M70.41 - Prepatellar bursitis, right knee Category: Medical Plan She will continue to to increase activities as tolerated using ice and compression as needed. If symptoms persist or worsen, patient will contact the office, otherwise follow-up as needed. Patient Instructions: Scribed for Ta-LIZETT Estrella-C, by Steve Lloyd, medical records clerk, on 09/20/2023 at 11:15 AM EST.? I, Celso Darby PA-C, have personally reviewed and agree with the information entered by the scribe. Coding Level of Care Code Est Pt Level 3 (92329) Diagnoses Prepatellar bursitis, right knee M70.41
== END 2023-09-20 11:49 | disposition home or self-care (01) ==
PROVIDERS: PCP Internal Medicine; Visit Provider Physician Assistant
DX: M70.41 Prepatellar bursitis, right knee (principal)
CPT/HCPCS: 99212

== ENCOUNTER → 2023-09-20 11:03 | Outpatient (BNVA) | payer OTHER, SELFPAY | PROVIDERS: PCP Internal Medicine; Visit Provider Physician Assistant | DX: M70.41 Prepatellar bursitis, right knee (principal) | CPT/HCPCS: 99212 ==

== ENCOUNTER 2023-12-10 10:45 | Outpatient (AMB) | payer OTHER, SELFPAY ==
--- NOTE | 2023-12-10 10:58 | MHC.OFFVIS ---
Intake Visit Reasons: OV f/u right knee Intake Note: Naya a 58 year old female who presents today for a follow up of right knee pain. Patient reports ongoing pain however she believes this is due to her weight. She is unable to return to work and needs updated forms to be completed. Allergies No Known Allergies Allergy (Verified 12/10/23 11:00) Medication List - Last Reconciled 12/10/23 by Celso Darby PA-C acamprosate 666 mg PO TID albuterol sulfate 90 mcg/actuation 2 puffs inhalation QID PRN celecoxib (Celebrex) 200 mg PO BID 30 days fluticasone propionate 110 mcg/actuation 2 puffs inhalation BID PRN folic acid 1 mg PO DAILY ibuprofen 800 mg PO Q8H PRN [knee high compression stocking 30/40mmHG] [Kneeling Scooter As directed] levothyroxine 100 mcg PO DAILY losartan-hydrochlorothiazide 100-25 mg 1 tab PO DAILY magnesium 250 mg PO DAILY sertraline (Zoloft) 200 mg PO DAILY thiamine HCl (vitamin B1) 100 mg PO DAILY triamcinolone acetonide 0.5% 1 appl topical BID PRN HPI HPI OV f/u right knee: Details: 58-year-old female who returns to the office today for a follow-up of right knee pain. She continues to have pain and discomfort in her knee that she believes has been having due to her brace. She also reports pain with weight bearing. She is unable to return to work and needs updated forms to be completed. 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 She has full ROM without pain. Calf supple, nontender. NVI. Assessment & Plan Assessment & Plan (1) Prepatellar bursitis, right knee: Code(s): M70.41 - Prepatellar bursitis, right knee Category: Medical Plan She will continue with activities as tolerated. She does have borderline arthritis of the right knee and she may experience occasional flareups if that is the case. She should modify activities tolerated. We can also offer cortisone injection if interested and she can take anti-inflammatories as needed, otherwise she can follow-up as needed. Patient Instructions: Scribed for Celso Darby PA-C, by Steve Lloyd medical transcription radiology, on 12/10/2023 at 11:00 AM EST.? I, Celso Darby PA-C, have personally reviewed and agree with the information entered by the scribe. Coding Level of Care Code Est Pt Level 3 (55405) Complex EM visit Add On G2211 Diagnoses Prepatellar bursitis, right knee M70.41
== END 2023-12-10 11:18 | disposition home or self-care (01) ==
PROVIDERS: PCP Internal Medicine; Visit Provider Physician Assistant
DX: M70.41 Prepatellar bursitis, right knee (principal)
CPT/HCPCS: 99213; G2211

== ENCOUNTER → 2023-12-10 10:45 | Outpatient (BNVA) | payer OTHER, SELFPAY | PROVIDERS: PCP Internal Medicine; Visit Provider Physician Assistant | DX: M70.41 Prepatellar bursitis, right knee (principal) | CPT/HCPCS: 99212 ==

== ENCOUNTER → 2024-03-03 13:45 | Outpatient (BNV) | payer OTHER, SELFPAY | PROVIDERS: PCP Internal Medicine; Visit Provider Internal Medicine | DX: Z12.31 Encounter for screening mammogram for malignant neoplasm of breast (principal) | CPT/HCPCS: 77063; 77067 ==

== ENCOUNTER 2024-03-03 13:51 | Outpatient (REF) | payer OTHER, SELFPAY ==
--- NOTE | ~2024-03-03 | MM_ITS ---
EXAMINATION: MM SCREENING DIGITAL BREAST TOMOSYNTHESIS, BILATERAL CLINICAL INFORMATION: Screening. Asymptomatic. COMPARISON: Mammography: Comparison is made with available priors TECHNIQUE: Digital breast mammography with tomosynthesis is performed in both the craniocaudal and mediolateral oblique views along with computer-aided detection (CAD). FINDINGS: There are scattered areas of fibroglandular density (ACR BI-RADS breast composition Category b). Bilateral scattered asymmetries are stable. There are no significant masses, abnormal calcifications, or other abnormalities. MM/MM tomosynthesis screening BI IMPRESSION: No mammographic evidence of malignancy. ASSESSMENT: BI-RADS BI-RADS 2 - Benign Findings RECOMMENDATION: Routine annual mammography screening. 1 year F/U This examination should not preclude the clinical evaluation of a suspicious palpable abnormality. This patient's information was entered into a reminder system with a target due date for their next mammogram. Electronically signed by: Emmy Hay DO 03/13/2024 03:16 PM KEZIA
== END 2024-03-03 13:52 | disposition home or self-care (01) ==
LOC: HO.MAMMO 13:51
PROVIDERS: PCP Internal Medicine; Visit Provider Internal Medicine
DX: Z12.31 Encounter for screening mammogram for malignant neoplasm of breast (principal)
CPT/HCPCS: 77063; 77067

== ENCOUNTER 2024-03-14 12:46 | Outpatient (REF) | payer OTHER, SELFPAY ==
[2024-03-14 13:01] LABS: MANUAL DIFF FLAG NO
[2024-03-14 13:48] LABS: Basophils Absolute Auto 0.1 X10*3/uL (0.0-0.2); Basophils Percent Auto 0.5 % (0-2); Eosinophils Absolute Auto 0.3 X10*3/uL (0.0-0.4); Eosinophils Percent Auto 2.6 % (0-4); Hematocrit 42.6 % (37.0-47.0); Hemoglobin 14.5 g/dl (12.0-16.0); Imm Gran Abs Auto 0.05 X10*3/uL (0.00-0.03); Imm Gran Pct Auto 0.5 % (0.0-0.4); Lymphocytes Absolute Auto 2.5 X10*3/uL (1.2-4.9); Mean Corpuscular Hemoglobin 32.4 pg (27.0-33.0); Mean Corpuscular Volume 95.1 fL (80.0-98.0); Mean Platelet Volume 12.5 fL (9.4-12.3); Monocytes Absolute Auto 0.5 X10*3/uL (0.1-1.2); Monocytes Percent Auto 5.7 % (2-11); Neutrophils Absolute Auto 6.1 x10*3/uL (2.0-8.3); Neutrophils Percent Auto 64.7 % (45-73); Platelet Count 194 X10*3/uL (160-400); Red Blood Count 4.48 X10*6/uL (4.20-5.50); Red Cell Distribution Width 13.2 % (11.0-16.0); White Blood Count 9.5 X10*3/uL (4.8-10.8)
[2024-03-14 14:16] LABS: Alanine Aminotransferase 54 U/L (0-31); Albumin Level 4.1 g/dL (3.5-5.0); Alkaline Phosphatase 69 U/L (39-117); Anion Gap 11 (12-20); Aspartate Amino Transferase 45 U/L (5-31); Bilirubin Total 0.4 mg/dL (0.0-1.0); Blood Urea Nitrogen 10 mg/dL (9-16); Calcium 9.4 mg/dL (8.4-10.2); Carbon Dioxide 27 mmol/L (22-29); Chloride 108 mmol/L (96-108); Cholesterol 192 mg/dL (<200); Estimated Glomerular Filt Rate > 60; Glucose Random 110 mg/dL (60-115); HDL Cholesterol 51 mg/dL (>40); LDL Cholesterol Calculated 120 mg/dL (<100); Sodium 142 mmol/L (135-145); Total Protein 7.5 g/dL (6.5-8.0); Triglycerides 106 mg/dL (<150)
[2024-03-14 14:30] LABS: Ferritin 231 ng/mL (10-250); Thyroid Stimulating Hormone 2.47 uIU/mL (0.32-4.0)
== END 2024-03-14 12:47 | disposition home or self-care (01) ==
LOC: HO.LAB 12:46
PROVIDERS: PCP Internal Medicine; Visit Provider Internal Medicine
DX: I10 Essential (primary) hypertension (principal); E03.9 Hypothyroidism, unspecified; D64.9 Anemia, unspecified
CPT/HCPCS: 36415; 80053; 80061; 82728; 84443; 85025

== ENCOUNTER 2024-07-17 11:33 | Outpatient (REF) | payer OTHER, SELFPAY ==
[2024-07-17 11:50] LABS: MANUAL DIFF FLAG NO
[2024-07-17 12:19] LABS: Basophils Absolute Auto 0.1 X10*3/uL (0.0-0.2); Basophils Percent Auto 0.8 % (0-2); Eosinophils Absolute Auto 0.4 X10*3/uL (0.0-0.4); Hematocrit 43.5 % (37.0-47.0); Hemoglobin 14.6 g/dl (12.0-16.0); Imm Gran Abs Auto 0.04 X10*3/uL (0.00-0.03); Imm Gran Pct Auto 0.5 % (0.0-0.4); Lymphocytes Absolute Auto 2.2 X10*3/uL (1.2-4.9); Mean Corpuscular HGB Conc 33.6 g/dl (31.0-35.0); Mean Corpuscular Hemoglobin 31.2 pg (27.0-33.0); Mean Corpuscular Volume 92.9 fL (80.0-98.0); Mean Platelet Volume 12.7 fL (9.4-12.3); Monocytes Absolute Auto 0.5 X10*3/uL (0.1-1.2); Monocytes Percent Auto 6.3 % (2-11); Neutrophils Absolute Auto 4.4 x10*3/uL (2.0-8.3); Neutrophils Percent Auto 58.4 % (45-73); Platelet Count 208 X10*3/uL (160-400); Red Blood Count 4.68 X10*6/uL (4.20-5.50); Red Cell Distribution Width 12.5 % (11.0-16.0); White Blood Count 7.6 X10*3/uL (4.8-10.8)
[2024-07-17 13:10] LABS: HBc Num1 0.06 S/CO (0.00-0.79); HBsAGNum1 0.37 S/CO (0.00-0.99); Hepatitis B Core Antibody Nonreactive (Nonreactive); Hepatitis B Surface Antigen Negative (Negative); ~Hepatitis B Surface Antibody NONREACTIVE (Nonreactive)
[2024-07-17 13:40] LABS: Alanine Aminotransferase 29 U/L (0-31); Alkaline Phosphatase 67 U/L (39-117); Anion Gap 13 (12-20); Aspartate Amino Transferase 26 U/L (5-31); Bilirubin Total 0.4 mg/dL (0.0-1.0); Blood Urea Nitrogen 10 mg/dL (9-16); Calcium 9.3 mg/dL (8.4-10.2); Carbon Dioxide 26 mmol/L (22-29); Chloride 105 mmol/L (96-108); Cholesterol 164 mg/dL (<200); Estimated Glomerular Filt Rate > 60; Glucose Random 111 mg/dL (60-115); Potassium 3.9 mmol/L (3.3-5.1); Sodium 140 mmol/L (135-145); Total Protein 7.5 g/dL (6.5-8.0); Triglycerides 112 mg/dL (<150)
[2024-07-17 13:46] LABS: HDL Cholesterol 46 mg/dL (>40); LDL Cholesterol Calculated 96 mg/dL (<100)
[2024-07-17 13:58] LABS: Thyroid Stimulating Hormone 2.04 uIU/mL (0.32-4.0)
[2024-07-18 14:18] LABS: HCV RNA PCR Qn <1.18 NOT DETECTED Log IU/mL (NOT DETECTED); HCV RNA PCR Qn <15 NOT DETECTED IU/mL (NOT DETECTED)
== END 2024-07-17 11:34 | disposition home or self-care (01) ==
LOC: HO.LAB 11:33
PROVIDERS: PCP Internal Medicine; Visit Provider Internal Medicine
DX: Z00.00 Encounter for general adult medical examination without abnormal findings (principal); I10 Essential (primary) hypertension; F10.11 Alcohol abuse, in remission; E03.9 Hypothyroidism, unspecified; D69.59 Other secondary thrombocytopenia
CPT/HCPCS: 36415; 80053; 80061; 84443; 85025; 86704; 86706; 87340; 87522

== ENCOUNTER 2024-08-23 11:36 | Outpatient (REF) | payer OTHER, SELFPAY ==
--- NOTE | ~2024-08-23 | XR_ITS ---
EXAMINATION: XR KNEE, LEFT CLINICAL INFORMATION: M25.562 - Pain in left knee COMPARISON: October 2015 TECHNIQUE: AP bilateral standing and sunrise and lateral views of the left knee. FINDINGS: There is moderate to severe narrowing of the medial joint space and minimal narrowing of the lateral joint space with mild medial subluxation of femur. Moderate 3 compartment marginal osteophytes are present. There is no joint effusion. XR/XR knee LT 3V IMPRESSION: Moderate to severe osteoarthritis, progressed since the prior exam Electronically signed by: Navi Caro MD 08/23/2024 06:24 PM EDT
== END 2024-08-23 11:37 | disposition home or self-care (01) ==
LOC: HO.HOSX 11:36
PROVIDERS: Visit Provider Physician Assistant
DX: M17.0 Bilateral primary osteoarthritis of knee (principal)
CPT/HCPCS: 20610; 73562; 99212; J1010; J2003

== ENCOUNTER 2024-08-23 14:17 | Outpatient (AMB) | payer OTHER, SELFPAY ==
--- NOTE | 2024-08-23 14:43 | MHC.OFFVIS ---
Intake Visit Reasons: NewProb- LT Knee pain Intake Note: Naya is a 59 year old female who presents today for an evaluation of left knee pain. Patient reports her pain started after a fall she had in the winter around March. States her pain has increased the past 3 months and is located at the anterior aspect of knee. States no position is comfortable. Finds that celebrex is not really helping. She would like to discuss injections. Allergies No Known Allergies Allergy (Verified 08/23/24 14:48) Medication List - Last Reconciled 08/23/24 by Celso Darby PA-C albuterol sulfate 90 mcg/actuation 2 puffs inhalation QID PRN celecoxib (Celebrex) 200 mg PO BID 30 days fluticasone propionate 110 mcg/actuation 2 puffs inhalation BID PRN folic acid 1 mg PO DAILY [knee high compression stocking 30/40mmHG] [Kneeling Scooter As directed] levothyroxine 100 mcg PO DAILY magnesium 250 mg PO DAILY thiamine HCl (vitamin B1) 100 mg PO DAILY triamcinolone acetonide 0.5% 1 appl topical BID PRN HPI HPI NewProb- LT Knee pain: Details: 59-year-old female presents to the office today for pain in the left knee. She states around March she fell landing on the left knee which has contributed to her discomfort. She has discomfort with activities such as stairs or walking long distances. She has had no treatment to date. 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 Tenderness along the medial joint line. ROM full with crepitus. Negative steinmans. No ligamentous laxity. NVI. Right knee skin intact, no erythema or joint effusion. Tenderness along the medial joint line. ROM full with crepitus. Negative steinmans. No ligamentous laxity. NVI. Office Procedures AMB Joint Injection/Aspiration Joint Injection/Aspiration Primary Site: right knee Secondary Site: left knee Prep: site was prepped using aseptic technique, ethochloride spray was applied and injection warnings given Injected: 80 mg of, DepoMedrol, with 8 mL of, 1% plain lidocaine and in the joint Approach Used: anterolateral Procedure: The patient tolerated the procedure well and there was some relief with the local anesthesia Coding - Glenohumeral/Tronchanteric Bursa/Intraarticular Procedure code (CPT) selection complete Results Reviewed Results Reviewed: X-rays of the left knee obtained in the office today and reviewed by me show moderate osteoarthritis of both knees with lateralization of the left patella Assessment & Plan Assessment & Plan (1) Patellofemoral arthritis of left knee: Code(s): M17.12 - Unilateral primary osteoarthritis, left knee Category: Medical (2) Osteoarthritis of right knee: Code(s): M17.11 - Unilateral primary osteoarthritis, right knee Category: Medical Plan We discussed options today which include physical therapy and steroid injections. We did proceed with physical therapy an order was placed today. Both knees were injected today with cortisone which the patient tolerated well. She will continue to increase activities as tolerated and if symptoms persist or worsen she will contact our office otherwise she will follow up as needed. Orders: Orders XR knee LT 3V Today M25.562 - Pain in left knee PT Evaluation and Treatment Today M17.12 - Unilateral primary osteoarthritis, left knee Coding Level of Care Code Est Pt Level 3 (46160) Complex EM visit Add On G2211 Diagnoses Patellofemoral arthritis of left knee M17.12 Osteoarthritis of right knee M17.11 CPT Codes Coding - Joint 7: 59634 - Glenohumeral/Tronchanteric Bursa/Intraarticular ([id number])
== END 2024-08-23 15:32 | disposition home or self-care (01) ==
LOC: HO.HOS 14:17
PROVIDERS: PCP Internal Medicine; Visit Provider Physician Assistant
DX: M17.0 Bilateral primary osteoarthritis of knee (principal)
CPT/HCPCS: 20610; 99213

== ENCOUNTER → 2024-08-23 14:30 | Outpatient (BNV) | payer OTHER, SELFPAY | PROVIDERS: Visit Provider Radiology Diagnostic Radiology | DX: M17.12 Unilateral primary osteoarthritis, left knee (principal) | CPT/HCPCS: 73562 ==

== ENCOUNTER 2024-09-08 11:28 | Outpatient (REF) | payer OTHER, SELFPAY ==
--- NOTE | ~2024-09-08 | MM_ITS ---
EXAMINATION: DXA BONE DENSITY AXIAL HISTORY: Osteoporosis TECHNIQUE: Rocketrip Dual energy absorptiometry (DEXA) of the lumbar spine, total left hip, and femoral neck was performed. COMPARISON: There are no prior studies for comparison. FINDINGS: The bone mineral density of the lumbar spine is 1.182 g/cm2, corresponding to a T-score of 0.0, and a Z-score of -0.1. This is indicative of normal bone mineral density. The bone mineral density of the left total hip is 0.960 g/cm2, corresponding to a T-score of -0.4, and a Z-score of -0.4. This is indicative of normal bone mineral density. The bone mineral density of the left femoral neck is 0.778 g/cm2, corresponding to a T-score of -1.5, and a Z-score of -1.9. This is indicative of osteopenia. FRACTURE RISK: The FRAX index suggests a risk of major osteoporotic fracture of 7.0%, and of hip fracture 0.7%. MM/XR DEXA axial skeleton IMPRESSION: Based on bone mineral density, and according to World Health Organization (WHO) criteria, the diagnosis is consistent with osteopenia. Statistically, 68% of repeat scans fall within 1 SD (+/- 0.010 g/cm2 for AP spine L1-L4) and 1 SD (+/- 0.012 g/cm2 for femur total) FRAX is a trademark of the [employer] [place] [employer] Met[employer] Bone Disease, a World Health Organization (WHO) Collaborating Center. Electronically signed by: Brian Welsh MD 09/08/2024 12:20 PM EDT
--- OUTSIDE RECORDS SUMMARY | 2024-09-08 12:44 | XMS_ITS | Patient Health Record ---
Author Organization [facility] Address [address] [place] [address] Care Team Providers Care Civil Manager Name Role Phone Lorena Delgado Primary Care Provider Brian Frausto Unavailable [phone] Reason For Referral No Information Medications Medication SIG (Take, Route, Fr equency, Duration) Notes Start Date End Date Status Campral Active iron Active Omeprazole 20 MG 1 capsule Orally Once a day Active Ibuprofen 200 MG 4 Orally QD A ctive Wellbutrin Active Vitamin B12 Active Social History Tobacco Use: Social History Observation Description Date Details (start date - stop date) Current Smoker NA - NA Tobacco Use/Smoking Question Answer Notes Patient is a current smoker How often do you smoke cigarettes? every day How many cigarettes a day do you smoke? 5 or les s How soon after you wake up do you smoke your fir st cigarette? after 60 minutes Are you interested in quitting? Ready to quit Alcohol Screen Question Answer Notes Did you have a drink contain ing alcohol in the past year? Yes How often did you have a dri nk containing alcohol in the past year? 4 or more times a week (4 points) How many drinks did you have on a typical day when you were drinking in the past year? 3 or 4 drinks (1 point) How often did you have 6 or more drinks on one occasion in the past year? Weekly (3 points) Points 8 Interpretation Positive Section Notes: Smoker 1-2 cigs QD; drinks b eers every day, but heavy on the weekends Problems Problem Type SNOMED Code ICD Code Onset Dates Problem Status W/U Status Risk Notes Problem [id number] Gastroesophageal reflux disease, esophagitis presence not specified (K21.9) Active confirmed Problem 02149523 Iron deficiency anemia, unspecified iron deficiency anemia type (D50.9) Active confirmed Plan Of Treatment Pending Test Test Name Order Date LIVER PROFILE 05/12/2017 IRON + IBC (FE) 05/12/2017 FERRITIN 05/12/2017 VITAMIN B12 AND FOLATE 05/12/2017 CBC w DIFF 05/12/2017 CELIAC PANEL #10 05/12/2017 Future Test Test Name Order Date UPPER GI ENDOSCOPY 05/12/2017 COLONOSCOPY 05/12/2017 Insurance Providers Payer Name Payer Address Payer Phone Subscriber Number Group Number Insured Name Patient Relationship to Insured Coverage Start Date Coverage End Date [facility] [employer] [address] [place] [address] [id number] RAFI SINGH Self - patient is the insured Medical (General) History Medical History History ICD Code Denies CA,DM,CVA,Lung disease,renal dise ase Anemia--told of low Iron lev els--on Iron replacement--Ferritin 35 and B12 level 183 in 01/2017--neg.Intrinsic factor Ab's---Hemocults neg. x 3 in 10/2016, Hgb 10.2 with MCV of 82 Depression GERD Alcohol abuse as below Arthritis Surgical History Surgery Date(Month/Year) Tubal ligation
== END 2024-09-08 11:29 | disposition home or self-care (01) ==
LOC: HO.MAMMO 11:28
PROVIDERS: PCP Internal Medicine; Visit Provider Internal Medicine
DX: M81.0 Age-related osteoporosis without current pathological fracture (principal)
CPT/HCPCS: 77080

== ENCOUNTER → 2024-09-08 11:45 | Outpatient (BNV) | payer OTHER, SELFPAY | PROVIDERS: PCP Internal Medicine; Visit Provider Radiology Diagnostic Radiology | DX: E28.39 Other primary ovarian failure (principal) | CPT/HCPCS: 77080 ==

== ENCOUNTER 2024-09-19 08:03 | Outpatient (REF) | payer OTHER, SELFPAY ==
--- NOTE | 2024-09-19 08:07 | EMG_ITS ---
Bilateral median and ulnar motor and sensory studies were performed. Bilateral radial sensory study was performed and paraspinal muscles were tested with a needle. IMPRESSION: Moderately severe bilateral median neuropathy across carpal tunnel. Please see the attached detailed neurophysiology data report MD ALFREDA Cortez/KATINA / [id number] MTDD
--- OUTSIDE RECORDS SUMMARY | 2024-09-19 08:08 | XMS_ITS | Patient Health Record ---
Author Organization [facility] Address [address] [place] [address] Care Team Providers Care Apartment Leasing Specialist Name Role Phone Lorena Delgado Primary Care Provider Brian Frausto Unavailable [phone] Reason For Referral No Information Medications Medication [...] Problem Status W/U Status Risk Notes Problem [id number] Gastroesophageal reflux disease, esophagitis presence not specified (K21.9) Active confirmed Problem 04079748 Iron deficiency anemia, unspecified iron deficiency anemia [...] Insured Coverage Start Date Coverage End Date [facility] [employer] [address] [place] [address] [id number] RAFI SINGH Self - patient is the insured Medical (General) History Medical History History ICD Code Denies [place],DM,CVA,Lung disease,renal dise ase Anemia--told of low Iron lev els--on Iron replacement--Ferritin 35 and B12 level 183 in 01/2017--neg.Intrinsic factor Ab's---Hemocults neg. x 3 in 10/2016, Hgb 10.2 with MCV of 82 Depression GERD Alcohol abuse as below Arthritis Surgical History Surgery Date(Month/Year) Tubal ligation
== END 2024-09-19 08:04 | disposition home or self-care (01) ==
LOC: HO.NEURO 08:03
PROVIDERS: PCP Internal Medicine; Visit Provider Internal Medicine
DX: G56.03 Carpal tunnel syndrome, bilateral upper limbs (principal)
CPT/HCPCS: 95886; 95911

== ENCOUNTER → 2024-09-19 08:07 | Outpatient (BNV) | payer OTHER, SELFPAY | PROVIDERS: PCP Internal Medicine; Visit Provider Psychiatry & Neurology Neurology | DX: G56.03 Carpal tunnel syndrome, bilateral upper limbs (principal) | CPT/HCPCS: 95886; 95911 ==

== ENCOUNTER 2024-10-25 10:09 | Emergency (ER) | payer OTHER, SELFPAY ==
[2024-10-25] VITALS (7 sets, daily range): BP systolic 123–148; BP diastolic 57–82; PULSE 54–61; RESP 18; TEMP -17.7–36.8; O2SAT 94–99; BMI 48.9
--- NOTE | ~2024-10-25 | XR_ITS ---
EXAMINATION: XR SHOULDER 2 OR MORE VIEWS RIGHT, XR HUMERUS RIGHT HISTORY: pain COMPARISON: There are no prior studies available for comparison. FINDINGS: Three views of the right shoulder and AP and lateral views of the right humerus are submitted. Osseous mineralization is normal. There is a comminuted fracture of the neck of the humerus which also involves the greater tuberosity. There is no dislocation. The glenohumeral and acromioclavicular joints are maintained. The right elbow joint is unremarkable in appearance. The soft tissues are unremarkable. XR/XR humerus RT IMPRESSION: Comminuted fracture of the neck and greater tuberosity of the humerus. Electronically signed by: Brian Welsh MD 10/25/2024 11:59 AM EDT
--- NOTE | ~2024-10-25 | XR_ITS ---
EXAMINATION: XR SHOULDER 2 OR MORE VIEWS RIGHT, XR HUMERUS RIGHT HISTORY: pain COMPARISON: There are no prior studies available for comparison. FINDINGS: Three views of the right shoulder and AP and lateral views of the right humerus are submitted. Osseous mineralization is normal. There is a comminuted fracture of the neck of the humerus which also involves the greater tuberosity. There is no dislocation. The glenohumeral and acromioclavicular joints are maintained. The right elbow joint is unremarkable in appearance. The soft tissues are unremarkable. XR/XR shoulder RT min 2V IMPRESSION: Comminuted fracture of the neck and greater tuberosity of the humerus. Electronically signed by: Brian Welsh MD 10/25/2024 11:59 AM EDT
--- NOTE | 2024-10-25 10:19 | ED_ITS ---
HPI - Extremity Problem General Chief complaint: Extremity Injury, Upper Stated complaint: Fall Time Seen by Provider: 10/25/24 10:18 Source: patient and RN notes reviewed Mode of arrival: ambulatory Limitations: no limitations History of Present Illness ED Provider: Beti Haines PA-C HPI Narrative: This is a 59-year-old female, with a past medical history of CHEYANNE on BiPAP at bedtime, hypothyroidism, mood disorder who presents emergency department after tripping and falling while getting out of a shuttle bus this morning. Pt reports that while she was stepping out of the [facility] shuttle bus when suddenly her sandal was caught on the ground and she fell forward, catching herself with her right arm on the shuttle door that was opening. She states that the door continued to open and her right arm kept lifting up with the door and she felt and heard a sudden cracking noise in her right shoulder. She did not fall down to the ground. She did not hit her head or lose consciousness. She took celecoxib this morning for her osteoarthritis. No other complaints or concerns at this time. MD Complaint: extremity pain Onset (ago): day(s) Pain Consistency: constant Location: right and upper extremity Quality: aching Radiation: none Relieving factors: nothing Exacerbating factors: nothing Associated symptoms: denies other symptoms Related Data Home Medications ?Medication ?Instructions ?Recorded ?Confirmed albuterol sulfate 90 mcg/actuation 2 puff inhalation Q ID PRN 08/06/23 08/23/24 aerosol inhaler Shortness Of Breath Or Wheez ing fluticasone propionate 110 2 puff inhalation BID PRN 0 08/06/23 08/23/24 mcg/actuation HFA aerosol inhaler Shortness Of Breath Or Wheezing folic acid 1 mg tablet 1 mg PO DAILY 08/06/2308/23 levothyroxine 100 mcg tablet 100 mcg PO DAILY 08/06/23 08/23/24 magnesium 250 mg tablet 250 mg PO DAILY 08/06/2302/06 thiamine HCl (vitamin B1) 100 mg 100 mg PO DAILY 08/0508/23/24 tablet triamcinolone acetonide 0.5 % 1 appl topical BID PRN e czema 08/06/23 08/23/24 topical ointment Previous Rx's ?Medication ?Instructions ?Recorded Kneeling Scooter #1 ea 03/05/23 knee high compression stocking #1 ea 07/26/23 celecoxib 200 mg capsule (Celebrex) 200 mg PO BID 30 d ays #60 caps 06/05/24 Heating pad #1 ea 09/11/24 cane #1 ea 09/11/24 morphine 15 mg immediate release 15 mg PO Q6H PRN ruth re pain 10/25/24 tablet (scale score 7-10) #10 tabs ondansetron 4 mg disintegrating 4 mg PO Q6H PRN nausea and 10/25/24 tablet vomiting #10 tabs Allergies Allergy/AdvReac Type Severity Reaction Status Date / Time No Known Allergies Allergy Verified 10/25/24 10:17 Review of Systems Review of Systems: Yes all other systems are reviewed and are negative Constitutional: Constitutional: Reports as per [facility] Past Medical History Medical History Hypothyroidism No known health problems Social History Social History Household Members: None Housing: Apartment Do you presently have visiting nurse or other home services: No Alcohol intake: current Alcohol intake frequency: 3 or more drinks per day Alcohol type: beer Comment: Pt refuses high fall risk interventions Patient Tobacco Use Status: Former Tobacco user Smoked in Last 30 Days: No Use of substances other than those prescribed or required for medical reasons: No Advance Directives: No Advance Directives Information Provided: Yes Do you have a plan to hurt others: No Plan Patient : No service: No 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 No acute distress. HEENT: Normal inspection CVS: Normal heart rate and rhythm. Pulses normal. Respiratory: No respiratory distress Skin: Warm, dry, no rashes noted to exposed skin. Normal skin color. Normal skin turgor. Extremities: Right shoulder with no obvious bony deformity or swelling. She had exquisite tenderness to palpation overlying the proximal humerus, decreased ROM secondary to pain. Strong radial pulse. No open wounds or lacerations. Strong radial pulse. right wrist, elbow nontender. Neuro: Oriented X 3. No motor deficit. No sensory deficit. Medications Administered Discontinued Medications Generic Name Dose Route Start Last Admin Trade Name Bassemq PRN Reason Stop Dose Admin Hydromorphone HCl 1 mg 10/25/24 11:43 10/25/24 11:52 Hydromorphone Hcl 1 Mg/Ml Syringe IVPUSH 10/25/24 11:44 1 mg ONCE ONE Administration Protocol Acetaminophen 1,000 mg in 100 mls @ 400 mls/hr 10/25/24 10:26 10/25/24 10:51 Ofirmev IV 10/25/24 10:40 Infused ONCE ONE Infusion Morphine Sulfate 4 mg 10/25/24 10:26 10/25/24 10:37 Morphine Sulfate 4 Mg/Ml Cartridge IVPUSH 10/25/24 10:27 4 mg ONCE ONE Administration Protocol Ondansetron HCl 4 mg 10/25/24 13:02 10/25/24 13:06 Ondansetron Hcl 4 Mg/2 Ml Vial IVPUSH 10/25/24 13:03 4 mg ONCE ONE Administration Ondansetron HCl 4 mg 10/25/24 15:23 10/25/24 15:25 Ondansetron Odt 4 Mg Tab.Rapdis TRANSLINGU 10/25/24 15:24 4 mg ONCE ONE Administration Medical Decision Making Medical Decision Making MDM Narrative: This is a 15-rofs-kxi-female who presents to the ER with complaints of right shoulder pain s/p mechanical injury that occurred just prior to arrival. On arrival, BP 131/57, all other vital signs WNL. Patient with exquisite tenderness palpation along the proximal humerus. Decreased range of motion. No head strike or LOC. she is not on anticoagulation. We will obtain shoulder x- ray and humerus x-ray to rule out any acute bony abnormalities. Patient very uncomfortable secondary to pain and right shoulder, will medicate with IV Tylenol, and IV morphine. Course: 1143 - Pt continues to have pain, will medicate with dilaudid 1mg IV and zofran. X-ray revealing comminuted fracture of the neck and greater tuberosity of the humerus. Discussed findings with patient, placed in a shoulder immobilizer. We will reach out to orthopedic for recommendations 1230 - orthopedic PA recommending shoulder immobilizer, and follow up outpatient. Patient reporting some nausea, will medicate with 2nd dose of Zofran. Patient feeling much better in regards to pain, she will follow-up with orthopedic outpatient, given strict return precautions, she understands and agrees with plan. Advised to continue taking Celebrex as prescribed, adding Tylenol to pain regimen, also discharged on morphine to be taken for severe pain only. Also discharged home with Zofran should she have any nausea. Patient stable for discharge. Differential Diagnosis Differential Diagnoses: The differential diagnosis associated with the presentation includes Fracture, contusion, dislocation, muscle strain Consult Healthcare Provider Management of the patient was discussed with: Dressed Poultry Grader Gabby Cooper, orthopedic PA Radiology Impression Discussion of test interpretation with radiology: I have reviewed the radiologist's reading. Radiologist Impression: FINDINGS: Three views of the right shoulder and AP and lateral views of the right humerus are submitted. Osseous mineralization is normal. There is a comminuted fracture of the neck of the humerus which also involves the greater tuberosity. There is no dislocation. The glenohumeral and acromioclavicular joints are maintained. The right elbow joint is unremarkable in appearance. The soft tissues are unremarkable. XR/XR shoulder RT min 2V IMPRESSION: Comminuted fracture of the neck and greater tuberosity of the humerus. Electronically signed by: Brian Welsh MD 10/25/2024 11:59 AM EDT Dictated By: Brian Welsh MD HISTORY: pain COMPARISON: There are no prior studies available for comparison. FINDINGS: Three views of the right shoulder and AP and lateral views of the right humerus are submitted. Osseous mineralization is normal. There is a comminuted fracture of the neck of the humerus which also involves the greater tuberosity. There is no dislocation. The glenohumeral and acromioclavicular joints are maintained. The right elbow joint is unremarkable in appearance. The soft tissues are unremarkable. XR/XR humerus RT IMPRESSION: Comminuted fracture of the neck and greater tuberosity of the humerus. Electronically signed by: Brian Welsh MD 10/25/2024 11:59 AM EDT RP Dictated By: Brian Welsh MD Discharge Plan Discharge Clinical Impression: Fracture, humerus, greater tuberosity, Fracture of humerus neck Patient Disposition: Home, Self-Care Instructions: Arm Fracture in Adults (ED) Additional Instructions: You were seen in the emergency department and unfortunately sustained a fracture of your humerus. Your humerus is the bone of your upper arm. Your xray official report was comminuted fracture of the neck and greater tuberosity of the humerus . Your x-rays were reviewed by the interactive media specialist, and recommend placing your arm in a sling, and following up outpatient with their office. Please call today to make an appointment for follow-up. Please keep arm in sling until you follow-up with the orthopedic team. You may remove sling to perform gentle range of motion of your elbow and wrist. Please do this gently and carefully and while you are in a seated position. Continue taking your celecoxib as directed. Take Tylenol 500 mg - 1000 mg (1-2 tablets) every 8 hours. Take this scheduled as this will help with your pain. You were given IV tylenol at 10:30AM, therefore your next dose is for 6:30PM. Ice your shoulder for pain relief. Place ice on your shoulder for 20 minutes, and remove for 20 minutes. Repeat this as needed. Take Zofran as needed for nausea. I am prescribing you a short course of strong pain medication known as morphine. Please take this only as prescribed, and only as needed for severe pain only. Please be advised that this is a controlled substance, and can cause adverse side effects including but not limited to addiction, dizziness and increases your risk of fall. Please do not drink alcohol or drive while taking this medication. Please be advised that we can not refill this medication through the emergency room therefore please follow-up with your primary care should you need for pain control. If any new or worsening symptoms occur including but not limited to intractable pain, severe chest pain, shortness of breath, please seek emergent care. Prescriptions: New morphine 15 mg tablet 15 mg PO Q6H PRN (Reason: severe pain (scale score 7-10)) Qty: 10 0RF Rx Instructions: Partial Fill upon patient request. ondansetron 4 mg tablet,disintegrating 4 mg PO Q6H PRN (Reason: nausea and vomiting) Qty: 10 0RF No Action celecoxib [Celebrex] 200 mg capsule 200 mg PO BID 30 Days Qty: 60 3RF (DME) cane Device See Rx Instructions .MEDSUPPLY Qty: 1 0RF Rx Instructions: As directed (DME) Heating pad See Rx Instructions .Route .MEDSUPPLY Qty: 1 0RF Rx Instructions: As directed thiamine HCl (vitamin B1) 100 mg tablet 100 mg PO DAILY triamcinolone acetonide 0.5 % ointment 1 appl topical BID PRN (Reason: eczema) levothyroxine 100 mcg tablet 100 mcg PO DAILY folic acid 1 mg tablet 1 mg PO DAILY magnesium 250 mg Tablet 250 mg PO DAILY albuterol sulfate 90 mcg/actuation HFA aerosol inhaler 2 puff inhalation QID PRN (Reason: Shortness Of Breath Or Wheezing) fluticasone propionate 110 mcg/actuation HFA aerosol inhaler 2 puff INHALATION BID PRN (Reason: Shortness Of Breath Or Wheezing) (DME) Kneeling Scooter See Rx Instructions .ROUTE .MEDSUPPLY Qty: 1 0RF Rx Instructions: As directed (DME) knee high compression stocking See Rx Instructions .ROUTE .MEDSUPPLY Qty: 1 0RF Rx Instructions: 30/40mmHG Referrals: [facility] Surgeons [Provider Group] Interventions: ED Discharge Assessment Last Done: 10/25/24 15:30 Discharge Date/Time: 10/25/24 15:30 Print Language: Afghan
--- NOTE | 2024-10-25 10:20 | PC.NURSE ---
59 F presents to ED with a fall when getting off the bus for a doctors appointment outside of the hospital. Pt sts the door opened on the bus and she was holding on the the door, fell on R arm when trying to catch fall, no head strike or LOC. R shoulder pain 10/10 and too painful to move arm. RR even and unlabored, denies SOB or CP. Pt is ambulatory, A+Ox4, calm and cooperative. CSMs present to R hand.
--- OUTSIDE RECORDS SUMMARY | 2024-10-25 11:21 | XMS_ITS | Patient Health Record ---
Author Organization [facility] Address [address] [place] [address] Care Team Providers Care [employer] Auto [employer] Teacher Name Role Phone Lorena Delgado Primary Care Provider Brian Frausto Unavailable [phone] Reason For Referral No Information Medications Medication [...] Problem Status W/U Status Risk Notes Problem [id number] Gastroesophageal reflux disease, esophagitis presence not specified (K21.9) Active confirmed Problem [id number] Iron deficiency anemia, unspecified iron deficiency anemia [...] Insured Coverage Start Date Coverage End Date [facility] [employer] [address] [place] [address] [phone] [id number] RAFI SINGH Self - patient is the insured Medical (General) History Medical History History ICD Code Denies [place],DM,CVA,Lung disease,renal dise ase Anemia--told of low Iron lev els--on Iron replacement--Ferritin 35 and B12 level 183 in 01/2017--neg.Intrinsic factor Ab's---Hemocults neg. x 3 in 10/2016, Hgb 10.2 with MCV of 82 Depression GERD Alcohol abuse as below Arthritis Surgical History Surgery Date(Month/Year) Tubal ligation
== END 2024-10-25 15:30 | disposition home or self-care (01) ==
PROVIDERS: Emergency Provider Emergency Medicine; PCP Internal Medicine
DX: S42.251A Displaced fracture of greater tuberosity of right humerus, initial encounter for closed fracture (principal); S42.211A Unspecified displaced fracture of surgical neck of right humerus, initial encounter for closed fracture; M25.511 Pain in right shoulder; V79.50XA Passenger on bus injured in collision with unspecified motor vehicles in traffic accident, initial encounter; Y93.9 Activity, unspecified; Y92.410 Unspecified street and highway as the place of occurrence of the external cause; Y99.8 Other external cause status; Z76.0 Encounter for issue of repeat prescription; Z79.899 Other long term (current) drug therapy; Z87.891 Personal history of nicotine dependence
CPT/HCPCS: 73030; 73060; 96374; 96375; 99284; 99285; J0131; J1171; J2270; J2405

== ENCOUNTER → 2024-10-25 10:26 | Outpatient (BNV) | payer OTHER, SELFPAY | PROVIDERS: Emergency Provider Emergency Medicine; PCP Internal Medicine; Visit Provider Radiology Diagnostic Radiology | DX: S42.251A Displaced fracture of greater tuberosity of right humerus, initial encounter for closed fracture (principal) | CPT/HCPCS: 73030; 73060 ==

== ENCOUNTER 2024-11-01 12:58 | Outpatient (AMB) | payer OTHER, SELFPAY ==
--- NOTE | 2024-11-01 13:09 | MHC.OFFVIS ---
Intake Visit Reasons: FC-humerus, greater tuberosity, Fracture of neck Intake Note: Naya is a 59 year old left hand dominant female who presents today as an established patient for an ER follow up of RT humerus fracture, DOI 10/25/24. Patient presented to [facility] ER after she fell when she was stepping out of [facility] shuttle bus, she attempted to catch herself with her right arm. X-rays were performed and placed in a sling. Today patient reports ongoing pain, with a current pain level of 7 out of 10. Patient has discomfort with sling use. Finds Tylenol is not helping. Some relief with icing. She has been coming out of sling to perform pendulum swings. Discomfort with laying down, making is difficult to get sleep. States she is traumatized since her fall. Allergies No Known Allergies Allergy (Verified 11/01/24 13:21) Medication List - Last Reconciled 11/07/24 by Celso Darby PA-C acetaminophen 650 mg (2 x 325 mg) PO Q4-6H PRN 30 days albuterol sulfate 90 mcg/actuation 2 puffs inhalation QID PRN cane As directed celecoxib (Celebrex) 200 mg PO BID 30 days fluticasone propionate 110 mcg/actuation 2 puffs inhalation BID PRN folic acid 1 mg PO DAILY [Heating pad As directed] [knee high compression stocking 30/40mmHG] [Kneeling Scooter As directed] levothyroxine 100 mcg PO DAILY magnesium 250 mg PO DAILY ondansetron 4 mg PO Q6H PRN thiamine HCl (vitamin B1) 100 mg PO DAILY tramadol 50 mg PO Q8H 7 days triamcinolone acetonide 0.5% 1 appl topical BID PRN HPI HPI FC-humerus, greater tuberosity, Fracture of neck: Details: 59 year old left hand dominant female who presents today for an injury she sustained to her RT shoulder, DOI 10/25/24. She was traveling to the hospital for an MRI when she was getting off the transport van she fell injuring the left shoulder. She was seen in the emergency department and xrays were significant for a proximal humerus fracture. Patient was placed in a sling and referred to our office for ortho eval. 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 Swelling and tenderness over the proximal humerus. Anterior deltoid sensation intact. Elbow and wrist ROM intact. NVI. Office Procedures AMB Fracture Care Fracture Billing Code: Fracture Billing Code Results Reviewed Results Reviewed: XR shoulder RT min 2V 10/25/24 IMPRESSION: Comminuted fracture of the neck and greater tuberosity of the humerus. Assessment & Plan Assessment & Plan (1) Closed fracture of right proximal humerus: Code(s): S42.201A - Unspecified fracture of upper end of right humerus, initial encounter for closed fracture Category: Medical Plan: I discussed with the patient the extent of her injury along with the recovery course of typically 6-12 months. She will d/c the use of the sling while in the house. She will work on gentle ROM and periscap stabilization . I recommend [facility] to work with her at home as she is unable to drive and has an unsteady gait and poor balance at baseline. I did give her a rx for tramadol to use qhs along with tylenol and celebrex. She will see me back in4-6 weeks with xrays, sooner if needed. Orders: [facility]errals [facility] Referral S42.201A - Unspecified fracture of upper end of right humerus, initial encounter for closed fracture Medications: New tramadol 50 mg PO Q8H 21 tabs 0RF 7 days acetaminophen 650 mg (2 x 325 mg) PO Q4-6H PRN 240 tabs 0RF fever or pain 30 days Refilled celecoxib (Celebrex) 200 mg PO BID 60 caps 3RF 30 days Coding Level of Care Code Est Pt Level 3 (80731) Complex EM visit Add On G2211 Diagnoses Closed fracture of right proximal humerus S42.201A CPT Codes Fracture Care - Fracture Billing Code: Fracture Billing Code ([id number])
--- OUTSIDE RECORDS SUMMARY | 2024-11-01 13:50 | XMS_ITS | Patient Health Record ---
Author Organization [facility] Address [address] [place] [address] Care Team Providers Care Senior Resident Care Director Name Role Phone Lorena Delgado Primary Care Provider Brian Frausto Unavailable [phone] Reason For Referral No Information Medications Medication [...] Problem Status W/U Status Risk Notes Problem [id number] Gastroesophageal reflux disease, esophagitis presence not specified (K21.9) Active confirmed Problem [id number] Iron deficiency anemia, unspecified iron deficiency anemia [...] Insured Coverage Start Date Coverage End Date [facility] [employer] [address] [place] [address] [phone] [id number] RAFI SINGH Self - patient is the insured Medical (General) History Medical History History ICD Code Denies [place],DM,CVA,Lung disease,renal dise ase Anemia--told of low Iron lev els--on Iron replacement--Ferritin 35 and B12 level 183 in 01/2017--neg.Intrinsic factor Ab's---Hemocults neg. x 3 in 10/2016, Hgb 10.2 with MCV of 82 Depression GERD Alcohol abuse as below Arthritis Surgical History Surgery Date(Month/Year) Tubal ligation
== END 2024-11-01 14:01 | disposition home or self-care (01) ==
LOC: HO.HOS 12:59
PROVIDERS: PCP Internal Medicine; Visit Provider Physician Assistant
DX: S42.201A Unspecified fracture of upper end of right humerus, initial encounter for closed fracture (principal)
CPT/HCPCS: 99213

== ENCOUNTER → 2024-11-01 12:58 | Outpatient (BNVA) | payer OTHER, SELFPAY | PROVIDERS: PCP Internal Medicine; Visit Provider Physician Assistant | DX: M79.601 Pain in right arm (principal); S42.401A Unspecified fracture of lower end of right humerus, initial encounter for closed fracture | CPT/HCPCS: 99212 ==

== ENCOUNTER 2024-12-18 08:10 | Outpatient (REF) | payer OTHER, SELFPAY ==
--- NOTE | ~2024-12-18 | XR_ITS ---
EXAMINATION: XR SHOULDER 2 OR MORE VIEWS RIGHT HISTORY: M25.511 - Pain in right shoulder COMPARISON: Comparison is made with the prior examination dated 10/25/2024. FINDINGS: Two views of the right shoulder are submitted. Osseous mineralization is normal. Again seen is a comminuted fracture of the surgical neck and greater tuberosity of the humerus. There is been blurring of the fracture margins with a small amount of callus formation, consistent with healing. The glenohumeral and acromioclavicular joint spaces are preserved. The soft tissues are unremarkable. XR/XR shoulder RT min 2V IMPRESSION: Healing comminuted fracture of the right humeral head and neck. Electronically signed by: Brian Welsh MD 12/18/2024 11:26 AM EDT
--- OUTSIDE RECORDS SUMMARY | 2024-12-19 08:27 | XMS_ITS | Patient Health Record ---
Author Organization [facility] Address [address] [place] [address] Care Team Providers Care Electric Operator Name Role Phone Lorena Delgado Primary Care Provider Brian Frausto Unavailable [phone] Reason For Referral No Information Medications Medication [...] Problem Status W/U Status Risk Notes Problem [id number] Gastroesophageal reflux disease, esophagitis presence not specified (K21.9) Active confirmed Problem [id number] Iron deficiency anemia, unspecified iron deficiency anemia [...] Insured Coverage Start Date Coverage End Date [facility] [employer] [address] [place] [address] [id number] RAFI SINGH Self - patient is the insured Medical (General) History Medical History History ICD Code Denies [place],DM,CVA,Lung disease,renal dise ase Anemia--told of low Iron lev els--on Iron replacement--Ferritin 35 and B12 level 183 in 01/2017--neg.Intrinsic factor Ab's---Hemocults neg. x 3 in 10/2016, Hgb 10.2 with MCV of 82 Depression GERD Alcohol abuse as below Arthritis Surgical History Surgery Date(Month/Year) Tubal ligation
== END 2024-12-18 08:11 | disposition home or self-care (01) ==
LOC: HO.HOSX 08:10
PROVIDERS: Visit Provider Physician Assistant
DX: S42.201D Unspecified fracture of upper end of right humerus, subsequent encounter for fracture with routine healing (principal); X58.XXXD Exposure to other specified factors, subsequent encounter
CPT/HCPCS: 73030; 99212

== ENCOUNTER 2024-12-18 11:17 | Outpatient (AMB) | payer OTHER, SELFPAY ==
--- NOTE | 2024-12-18 11:30 | A.OFFVIS_ITS ---
Intake Visit Reasons: ov- RT humerus fx, DOI 10/25/24 w/ XR Intake Note: Naya is a 59 year old left hand dominant female who presents today a follow up of right humerus fracture, DOI 10/25/24. At her last visit an order was placed for the [facility] and recommended to follow up in 4-6 weeks with x-rays. Today patient reports that she continues to have discomfort, and is limited in ROM. She is requesting an MRI. Allergies No Known Allergies Allergy (Verified 12/18/24 11:34) Medication List - Last Reconciled 12/18/24 by Celso Darby PA-C acetaminophen 650 mg (2 x 325 mg) PO Q4-6H PRN 30 days albuterol sulfate 90 mcg/actuation 2 puffs inhalation QID PRN cane As directed celecoxib (Celebrex) 200 mg PO BID 30 days fluticasone propionate 110 mcg/actuation 2 puffs inhalation BID PRN folic acid 1 mg PO DAILY [Heating pad As directed] [knee high compression stocking 30/40mmHG] [Kneeling Scooter As directed] levothyroxine 100 mcg PO DAILY magnesium 250 mg PO DAILY ondansetron 4 mg PO Q6H PRN thiamine HCl (vitamin B1) 100 mg PO DAILY triamcinolone acetonide 0.5% 1 appl topical BID PRN HPI HPI ov- RT humerus fx, DOI 10/25/24 w/ XR: Details: 59-year-old female returns to the office today for a follow-up right proximal humerus fracture date of injury 10/25/2024. She has been working with occupational therapy at home in her motion has improved but it is not to the level she was prior to injury. 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 ER to 40 deg. NVI. Results Reviewed Results Reviewed: X-rays of the right shoulder obtained in the office today and reviewed by me show stable proximal humerus fracture Assessment & Plan Assessment & Plan (1) Closed fracture of right proximal humerus: Code(s): S42.201A - Unspecified fracture of upper end of right humerus, initial encounter for closed fracture Category: Medical Qualifiers: Encounter type: subsequent encounter Fracture alignment: nondisplaced Fracture healing: with routine healing Plan: An order for physical therapy has been placed for her to contact and make an appointment. She will work on range of motion periscapular stabilization. She should avoid lifting excessively with the right shoulder over the next 6 weeks. We will also order an MRI of the right shoulder to further evaluate the extent of her injury in regards to the rotator cuff as she continues to remain limited in certain activities. I will see her back in 6 weeks with repeat x-rays of the right shoulder, sooner if needed. Orders: Orders XR shoulder RT min 2V Today M25.511 - Pain in right shoulder MR shoulder RT wo con Today M75.81 - Other shoulder lesions, right shoulder, S42.201A - Unspecified fracture of upper end of right humerus, initial encounter for closed fracture PT Evaluation and Treatment Today S42.201A - Unspecified fracture of upper end of right humerus, initial encounter for closed fracture Coding Level of Care Code Global (76606) Diagnoses Closed fracture of right proximal humerus S42.201A Encounter type: subsequent encounter Fracture alignment: nondisplaced Fracture healing: with routine healing
--- OUTSIDE RECORDS SUMMARY | 2024-12-18 13:51 | XMS_ITS | Patient Health Record ---
Author Organization [facility] Address [address] [place] [address] Care Team Providers Care Child Care Centre Director Name Role Phone Lorena Delgado Primary Care Provider Brian Frausto Unavailable [phone] Reason For Referral No Information Medications Medication [...] Problem Status W/U Status Risk Notes Problem [id number] Gastroesophageal reflux disease, esophagitis presence not specified (K21.9) Active confirmed Problem [id number] Iron deficiency anemia, unspecified iron deficiency anemia [...] Insured Coverage Start Date Coverage End Date [facility] [address] [place] [address] [id number] RAFI SINGH Self - patient is the insured Medical (General) History Medical History History ICD Code Denies [place],DM,CVA,Lung disease,renal dise ase Anemia--told of low Iron lev els--on Iron replacement--Ferritin 35 and B12 level 183 in 01/2017--neg.Intrinsic factor Ab's---Hemocults neg. x 3 in 10/2016, Hgb 10.2 with MCV of 82 Depression GERD Alcohol abuse as below Arthritis Surgical History Surgery Date(Month/Year) Tubal ligation
== END 2024-12-18 11:49 | disposition home or self-care (01) ==
LOC: HO.HOS 11:17
PROVIDERS: PCP Internal Medicine; Visit Provider Physician Assistant
DX: S42.201A Unspecified fracture of upper end of right humerus, initial encounter for closed fracture (principal)
CPT/HCPCS: 99213

== ENCOUNTER → 2024-12-18 11:18 | Outpatient (BNV) | payer OTHER, SELFPAY | PROVIDERS: Visit Provider Radiology Diagnostic Radiology | DX: S42.211D Unspecified displaced fracture of surgical neck of right humerus, subsequent encounter for fracture with routine healing (principal) | CPT/HCPCS: 73030 ==

== ENCOUNTER 2024-12-18 12:02 | Outpatient (REF) | payer OTHER, SELFPAY ==
[2024-12-18 13:13] LABS: Alanine Aminotransferase 20 U/L (0-31); Albumin Level 4.4 g/dL (3.5-5.0); Alkaline Phosphatase 75 U/L (39-117); Anion Gap 11 (12-20); Aspartate Amino Transferase 23 U/L (5-31); Blood Urea Nitrogen 11 mg/dL (9-16); Calcium 9.3 mg/dL (8.4-10.2); Carbon Dioxide 28 mmol/L (22-29); Chloride 107 mmol/L (96-108); Estimated Glomerular Filt Rate > 60; Potassium 4.0 mmol/L (3.3-5.1); Sodium 142 mmol/L (135-145); Total Protein 7.5 g/dL (6.5-8.0)
[2024-12-18 13:28] LABS: Thyroid Stimulating Hormone 1.47 uIU/mL (0.32-4.0)
== END 2024-12-18 12:03 | disposition home or self-care (01) ==
LOC: HO.LAB 12:02
PROVIDERS: PCP Internal Medicine; Visit Provider Internal Medicine
DX: M84.321A Stress fracture, right humerus, initial encounter for fracture (principal); I10 Essential (primary) hypertension; E03.9 Hypothyroidism, unspecified; F32.9 Major depressive disorder, single episode, unspecified; G47.33 Obstructive sleep apnea (adult) (pediatric); G56.03 Carpal tunnel syndrome, bilateral upper limbs
CPT/HCPCS: 36415; 80053; 82306; 84443

== ENCOUNTER → 2025-02-09 09:37 | Outpatient (BNV) | payer OTHER, SELFPAY | PROVIDERS: PCP Internal Medicine; Visit Provider Radiology Diagnostic Ultrasound | DX: M17.12 Unilateral primary osteoarthritis, left knee (principal); S83.242A Other tear of medial meniscus, current injury, left knee, initial encounter; S83.282A Other tear of lateral meniscus, current injury, left knee, initial encounter | CPT/HCPCS: 73721 ==

== ENCOUNTER 2025-02-09 09:40 | Outpatient (REF) | payer OTHER, SELFPAY ==
--- NOTE | ~2025-02-09 | MR_ITS ---
EXAMINATION: MR KNEE WITHOUT CONTRAST, LEFT CLINICAL INFORMATION: Unilateral osteoarthritis COMPARISON: X-ray 08/23/2024 TECHNIQUE: MRI of the knee without contrast was performed using routine sequences on a high-field scanner. FINDINGS: MENISCI: Medial Meniscus: Irregular tear of the posterior horn involving the articular surfaces and free edge. Body is medially extruded, with undersurface and free edge tear. Lateral Meniscus: Horizontal tear in the body. Undersurface degenerative fraying/tear of the anterior root/central anterior horn. Degeneration in the anterior horn. LIGAMENTS: Cruciate: ACL is thin in caliber, with laxity and mild T2 signal suggesting partial tearing. Intact PCL. Collateral: Mild proximal MCL. Intact LCL complex. EXTENSOR MECHANISM: Intact ARTICULAR CARTILAGE/BONE: Patellofemoral Compartment: Mild arthritis Medial Compartment: Moderate-severe arthritis, nonuniform chondral loss, including large area of high-grade/full-thickness chondral loss, subchondral cysts and edema. Lateral Compartment: Mild arthritis. Central osteophyte in the posterior weightbearing femoral condyle, overlying cartilage thinning. No acute fracture. JOINT FLUID AND BURSAE: Small effusion. Small Wesley's cyst. Subcutaneous edema. Varicose veins. MR/MR knee LT wo con IMPRESSION: * Tear of the medial meniscal posterior horn and body. * Tear of the lateral meniscal body, and fraying/tearing of the anterior horn * Tricompartment arthritis. Moderate to severe medial compartment arthritis. * Small effusion. Small Wesley's cyst. Electronically signed by: Fernando Meza MD 02/09/2025 04:19 PM [facility]
--- OUTSIDE RECORDS SUMMARY | 2025-02-09 09:45 | XMS_ITS | Patient Health Record ---
Author Organization [facility] Address [address] [place] [address] Care Team Providers Care Client Services Representative Name Role Phone Lorena Delgado Primary Care Provider Brian Frausto Unavailable [phone] Reason For Referral No Information Medications Medication SIG (Take, Route, Frequency, Duration) Notes Start Date End Date Status Campral Active iron Active Omeprazole 20 MG Capsule Delayed Release 1 capsule Orally Once a day Active Ibuprofen 200 MG Tablet 4 Orally QD Active Wellbutrin Active Vitamin B12 Active Social History Tobacco Use: Social History Observation Description Date Details (start date - stop date) Current Smoker NA - NA Social History Drugs/Alcohol: Social Info Question Answer Notes Alcohol Screen Did you have a drink containing alcohol in the past year? Yes How often did you have a drink containing alcohol in the past year? 4 or more times a week (4 points) How many drinks did you have on a typical day when you were drinking in the past year? 3 or 4 drinks (1 point) How often did you have 6 or more drinks on one occasion in the past year? Weekly (3 points) Points 8 Interpretation Positive Tobacco Use: Social Info Question Answer Notes Tobacco Use/Smoking Patient is a current smoker How often do you smoke cigarettes? every day How many cigarettes a day do you smoke? 5 or less How soon after you wake up do you smoke your first cigarette? after 60 minutes Are you interested in quitting? 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 [employer] Care Section Notes: Smoker 1-2 cigs QD; drinks b eers every day, but heavy on the weekends Problems Problem Type SNOMED Code ICD Code Onset Dates Problem Status W/U Status Risk Notes Problem Gastroesophageal reflux disease ([id number]) Gastroesophageal reflux disease, esophagitis presence not specified (K21.9) Active confirmed Problem Iron deficiency anemia (85707366) Iron deficiency anemia, unspecified iron deficiency anemia [...] Insured Coverage Start Date Coverage End Date [facility] [employer] [address] [place] [address] [id number] RAFI SINGH Self - patient is the insured Medical (General) History Medical History History ICD Code Denies [place],DM,CVA,Lung disease,renal dise ase Anemia--told of low Iron lev els--on Iron replacement--Ferritin 35 and B12 level 183 in 01/2017--neg.Intrinsic factor Ab's---Hemocults neg. x 3 in 10/2016, Hgb 10.2 with MCV of 82 Depression GERD Alcohol abuse as below Arthritis Surgical History Surgery Date(Month/Year) Tubal ligation
== END 2025-02-09 09:41 | disposition home or self-care (01) ==
LOC: HO.MRI 09:40
PROVIDERS: PCP Internal Medicine; Visit Provider Physician Assistant
DX: M17.12 Unilateral primary osteoarthritis, left knee (principal)
CPT/HCPCS: 73721